=== PATIENT | female | born 1960 | race Caucasian/White ===

== ENCOUNTER 2018-11-01 14:36 | Inpatient (IN) | payer OTHER, MEDICAID ==
[~2018-11-01] VITALS: Ht 165.1 cm; Wt 68.0 kg
[2018-11-01] MEDS ORDERED: LOSA50TA3 PO (19:43)
[2018-11-01] MEDS ORDERED: LITH300T27 PO (19:43)
[2018-11-01] MEDS ORDERED: FER300L PO (19:43)
[2018-11-01] MEDS ORDERED: FLUP10TA PO (19:43)
[2018-11-01] MEDS ORDERED: LIP10 PO (19:43)
[2018-11-01] MEDS ORDERED: DOCU250C14 PO (19:43)
[2018-11-01] MEDS ORDERED: FAMO40TA71 PO (19:43)
[2018-11-01] MEDS ORDERED: AZITHROMYCIN 500 MG in NS 250 ML IV SCH (19:45)
[2018-11-01] MEDS ORDERED: cefTRIAXone 1 GM in D5W 50 ML IV SCH (19:45)
[2018-11-01] MEDS ORDERED: LevALBUTEROL HCL 1.25 MG/0.5 ML *CONC.* VIAL.NEB (XOPENEX CONC.) INH PRN (19:45)
--- NOTE | 2018-11-01 19:45 | NUR ---
OPENING NOTES RECEIVED PATIENT IN BED AAOX1. PATIENT IS CONFUSED UNABLE TO COMPREHEND PATIENT WITH RANDOM THOUGHTS. HEART AND LUNG SOUNDS WNL. BOWEL SOUNDS ACTIVE. NO COMPLAINTS OF PAIN OR RESPIRATORY DISTRESS. ORIENTED THE PATIENT TO THE ROOM AND USE OF THE CALL LIGHT BUT UNABLE TO ASSESS PATIENTS UNDERSTANDING. PATIENT IS ABLE TO AMBULATE TO THE BATHROOM WITH A STEADY GAIT. URINE VOID, NO BOWEL MOVEMENT.
[2018-11-01 20:00] VITALS: BP_SYST 150
--- NOTE | 2018-11-01 20:00 | NUR ---
PATIENT IS BEING AGGRESSIVE AND REFUSING IV INSERTION. WILL NOTIFY .
--- NOTE | 2018-11-01 20:02 | NUR ---
paged paged for Dr Iverson, dialed . s/w Caitlin.
[2018-11-01 20:25] VITALS: BP_SYST 150
--- NOTE | 2018-11-01 20:40 | NUR ---
paged second page for Dr Iverson, dialed . s/w Caitlin.
[2018-11-01 20:50] VITALS: BP_SYST 150
--- NOTE | 2018-11-01 21:22 | NUR ---
paged paged for Dr Iverson, dialed . s/w Caitlin.
[2018-11-01] MEDS ORDERED: AZITHROMYCIN 500 MG/VIAL (ZITHROMAX) IV ONE (21:24)
[2018-11-01] MEDS ORDERED: KCL 20 mEq in D5NS 1000 mL 1,000 ML IV ONE (21:26)
[2018-11-01] MEDS ORDERED: cefTRIAXone 1 GM IVPB PREMIX 50 ML IV ONE (21:26)
[2018-11-01] MEDS ORDERED: HALOPERIDOL LACTATE 5 MG/ML VIAL IM SCH (21:30)
--- NOTE | 2018-11-01 22:05 | NUR ---
PATIENT IN BED RESTING. SPEAKING NONSENSE. NO COMPLAINTS OF PAIN OR RESPIRATORY DISTRESS. ON ROOM AIR AND TOLERATING WELL.
[2018-11-01] MEDS: FAMOTIDINE 20 MG TABLET PO SCH (23:07)
[2018-11-01] MEDS: LITHIUM CARBONATE 300 MG TABLET.SA PO SCH (23:07)
[2018-11-01] MEDS: LOSARTAN POTASSIUM 50 MG TABLET (COZAAR) PO SCH (23:07)
[2018-11-01] MEDS: FERROUS SULFATE 300 MG/5 ML UDC PO SCH (23:07)
[2018-11-01] MEDS: ATORVASTATIN 10 MG TABLET PO SCH (23:07)
--- NOTE | 2018-11-01 23:30 | NUR ---
IV INSERTION: IV PLACED TO RIGHT FOREARM 22G. FLUSHED WITH 10ML SALINE WITH GOOD BLOOD RETURN. NO PAIN OR INFILTRATION AT THE SITE. IV WRAPPED WITH GAUZE.
[2018-11-02] VITALS: BP_SYST 114
--- NOTE | 2018-11-02 00:56 | NUR ---
Psych Consultation Paged Reason for consultation: Psychosis Was consult called: Yes Person who was notified: Denice Consulting Physician: Dr Zuluaga is on-call for Dr Gabriel Rubber Stamp Assembler Specialty: Psych Rubber Stamp Assembler Ordered By: Dr Iverson
--- NOTE | 2018-11-02 01:25 | NUR ---
SPOKE WITH DR CANADA. PATIENT IS NON COMPLIANT AND AGITATED WITH IV MEDICATIONS. PER DR CNAADA, HOLD IV FLUIDS AND ANTIBIOTICS. DR CANADA MADE AWARE OF ALLERGY TO PENICILLINS AND HALOPERIDOL.
--- NOTE | 2018-11-02 04:00 | NUR ---
PATIENT AMBULATED TO THE BATHROOM WITH STEADY GAIT. GARBLED SPEECH ABOUT HER MOTHER AND A CUSTOMER SALES REPRESENTATIVE. UNABLE TO COMPREHEND THE PATIENTS SENTENCES. NO PAIN, COUGH, SOB, OR FATIGUE WHEN AMBULATING.
[2018-11-02 06:21] LABS: BASOPHILS % (AUTO) 0.9 % (0.0-2.0); EOSINOPHILS # (AUTO) 0.2 K/uL (0.0-0.4); EOSINOPHILS % (AUTO) 4.2 % (0.0-4.0); HEMATOCRIT 44.4 % (36-48); HEMOGLOBIN 14.4 g/dL (12.0-16.0); LYMPHOCYTES # (AUTO) 1.6 K/uL (1.0-5.5); LYMPHOCYTES % (AUTO) 36.4 % (20.5-51.5); MEAN CORPUSCULAR HEMOGLOBIN 30 pg (27-31); MEAN CORPUSCULAR HGB CONC 32 % (32-36); MEAN CORPUSCULAR VOLUME 94 fL (79.0-98.0); MONOCYTES # (AUTO) 0.4 K/uL (0.0-1.0); NEUTROPHILS # (AUTO) 2.1 K/uL (1.8-7.7); NEUTROPHILS % (AUTO) 48.5 % (40.0-70.0); PLATELET COUNT (AUTO) 216 K/uL (130-430); RED BLOOD CELL COUNT(AUTO) 4.73 MIL/uL (4.2-6.2); RED CELL DISTRIBUTION WIDTH 15.5 % (9.0-15.0); WHITE BLOOD COUNT (AUTO) 4.4 K/uL (4.8-10.8)
[2018-11-02 06:42] LABS: CALCIUM 9.9 mg/dL (8.4-11.0); CREATININE 0.69 mg/dL (0.55-1.30); POTASSIUM 3.8 mmol/L (3.5-5.1)
--- NOTE | 2018-11-02 06:58 | NUR ---
CLOSING NOTES PATIENT IN BED RESTING. HAD AN OUTBURST, HITTING THE WALL WITH HER HANDS. SECURITY WAS CALLED BUT PATIENT CALMED DOWN. STILL REFUSING IV FLUIDS AND IV ANTIBIOTICS. SHE IS OKAY WITH PO PILLS. PATIENT STATES Addendum: 11/02/18 at 0703 by Garrett Jenkins RN PATIENT STATES "WHY ARE YOU TRYING TO TAKE MY BLOOD" SAFETY PRECAUTIONS IN PLACE. BED LOW AND LOCKED. WILL ENDORSE CARE TO ONCOMING NURSE.
--- NOTE | 2018-11-02 07:12 | NUR ---
received report at the bedside with nite nurse. patient alert awake x 1 confused. has iv access on the right forearm #22. saline lock, refused to have iv fluids on. breathing even and unlalbored. lungs bilaterally diminished at the bases. bed in low position. locked and alarmed. maintained safety measures. abdomen soft and non distended. instructed to call for assistance. call lights within reach. has ecchymosis on the rt forearm. no open wound noted.
[2018-11-02] MEDS: LevALBUTEROL HCL 1.25 MG/0.5 ML *CONC.* VIAL.NEB (XOPENEX CONC.) INH SCH ×3 (07:34→23:10)
[2018-11-02 07:41] VITALS: BP_SYST 132
[2018-11-02] MEDS: FERROUS SULFATE 300 MG/5 ML UDC PO SCH ×2 (07:54→21:16)
[2018-11-02] MEDS: DOCUSATE SODIUM 250 MG CAPSULE PO SCH (07:54)
[2018-11-02] MEDS: FAMOTIDINE 20 MG TABLET PO SCH ×2 (07:54→21:17)
[2018-11-02] MEDS: LITHIUM CARBONATE 300 MG TABLET.SA PO SCH ×2 (07:54→21:17)
[2018-11-02] MEDS: LOSARTAN POTASSIUM 50 MG TABLET (COZAAR) PO SCH ×2 (07:56→21:17)
--- NOTE | 2018-11-02 08:00 | NUR ---
had breakfast consumed 100% of food.
--- NOTE | 2018-11-02 08:40 | NUR ---
patient took the medication at this time. with water.
--- NOTE | 2018-11-02 09:00 | NUR ---
screams at times, but later quites down.
[2018-11-02] MEDS: KCL 20 mEq in D5NS 1000 mL 1,000 ML IV SCH ×2 (09:05→10:52)
--- NOTE | 2018-11-02 09:35 | NUR ---
trying to stand nd get water, but unsteady gait. assists on adls.
[2018-11-02] MEDS: AZITHROMYCIN 500 MG in NS 250 ML IV SCH ×2 (10:00→10:53)
--- NOTE | 2018-11-02 10:00 | NUR ---
patient ambulated to the bathroom. unsteady but ok. refused to assists her.
--- NOTE | 2018-11-02 10:47 | NUR ---
finally patient agreed to have iv fluids n iv antibiotic
--- NOTE | 2018-11-02 10:53 | NUR ---
Nutrition Update Robb Scale 18 noted. Pt admitted for ALOC. Diet: regular BMI: 25 kg/m2 RD to follow per nutrition care standards.
--- NOTE | 2018-11-02 10:56 | NUR ---
agreed to have iv fluids on and iv antibiotic.
[2018-11-02 11:24] VITALS: BP_SYST 90
--- NOTE | 2018-11-02 11:51 | NUR ---
doctor Augustin called covering for Dr Iverson. awaiting to call back.
--- NOTE | 2018-11-02 12:21 | NUR ---
eating 100% of food. stable no pain noted.
--- NOTE | 2018-11-02 12:22 | NUR ---
verbalized i want to go home and do something at home.
--- NOTE | 2018-11-02 13:57 | NUR ---
mom came to see the patient.
--- NOTE | 2018-11-02 14:26 | NUR ---
patient quite for now with the mom. earlier screaming. but stable.
[2018-11-02] MEDS ORDERED: NICOTINE 21 MG/24 HR PATCH.TD24 TD ONE (15:15)
[2018-11-02] MEDS ORDERED: BENZOCAINE/MENTHOL 1 EACH LOZENGE MM PRN (15:15)
--- NOTE | 2018-11-02 15:25 | NUR ---
MADE A F/U CALL TO THE PSYCH CONSULT DR BA, RE: PSYCHOSIS. SPOKE TO CRYSTAL.
--- NOTE | 2018-11-02 15:58 | NUR ---
MOM STILL HERE. STILL SCREAMING LOUD
--- NOTE | 2018-11-02 15:58 | NUR ---
NICOTINE PATCH APPLIED ON THE RIGHT ARM.
--- NOTE | 2018-11-02 16:00 | NUR ---
seen by dr wesley and made orders. mom able to talk to dr wesley at the station
[2018-11-02 16:32] VITALS: BP_SYST 162
[2018-11-02 16:34] VITALS: BP_SYST 115
--- NOTE | 2018-11-02 16:46 | NUR ---
patient quite and talking but stable.
--- NOTE | 2018-11-02 18:08 | NUR ---
quite and eating the food for dinner. no screaming noted.
--- NOTE | 2018-11-02 18:19 | NUR ---
closing notes: patient alert awake but confused. has lucid interval. between aao x 1 to 2 and most of the time. screams, if provoke and agrue. all needs are met. bed in low position, alarmed and locked. breathing even and unlabored. still has iv access on the rt forearm with iv fluids of D5NS + 20meq Kcl at 785cc/hr infusing on well. assists patient to the bathroom. steady but woobly at times. refused to gown on. wants to wear street clothes from home. able to eat good 100% of food consumed. maintained safety measures. endorsed to incoming nurse.
--- NOTE | 2018-11-02 19:10 | NUR ---
RECEIVED REPORT FROM LALO MAHER AT BEDSIDE.PATIENT IS AWAKE ORIENTED X2,FORGETFUL OF TIME.KNOWS IN THE HOSPITAL ONLY ,NO SPECIFIC NAME. PATIENT ON HER OWN CLOTHES,UP WALKING TOWARDS DOOR ASKING FOR COKE TO DRINK. THEN WENT TO BATHROOM TO VOID. BACK TO BED AND COVERED HERSELF WITH BLANKETS.
[2018-11-02 20:10] VITALS: BP_SYST 106
--- NOTE | 2018-11-02 21:00 | NUR ---
PATIENT IS ASKING FOR HER COKE TO DRINK. GIVEN FROM [place]. HAD BEEN SITTING UP ON BED
[2018-11-02] MEDS: ATORVASTATIN 10 MG TABLET PO SCH (21:17)
--- NOTE | 2018-11-02 21:45 | NUR ---
NAUSEA/VOMITING: FELT NAUSEATED AND VOMITTED APPROXIMATELY 150ML OF LIGHT COFFEE GROUND WITH UNDIGESTED FOODS.PATIENT JUST HAD COKE TO DRINK WITH MEDS AND COUGHING. WILL CALL .
--- NOTE | 2018-11-02 22:05 | NUR ---
NOTIFIED Mary BENTLEY ABOUT PATIENT VOMTING WITH ORDER OF ZOFRAN IV
[2018-11-02] MEDS: ONDANSETRON HCL 4 MG/2 ML VIAL IVP PRN (22:44)
--- NOTE | 2018-11-02 22:48 | NUR ---
WOKE UP SAT ON BED UPSET.VERBALIZING DOES NOT WANT TO BE TOUCH,PUSHED AROUND, BY CHANGEOVER OPERATOR.REASSURANCES PROVIDED. CALM DOWN AFTER.
--- NOTE | 2018-11-02 23:25 | NUR ---
ANXIOUS AND UNABLE TO SLEEP.ATIVAN 1MG IV GIVEN. VOIDED ON HER ATTENDS.DAVI CARE DONE.
[2018-11-02] MEDS: LORazepam 2 MG/ML VIAL IVP PRN (23:26)
[2018-11-03] VITALS: BP_SYST 110
--- NOTE | 2018-11-03 01:30 | NUR ---
AWAKEN, SITTING UP ON BED,TALKING DIFFERENT TOPICS ,THEN SMILE AT TIMES. LAY DOWN AFTER TALKING.
--- NOTE | 2018-11-03 03:00 | NUR ---
PATIENT SOUND ASLEEP THIS TIME. BREATHING PATTERN REGULAR.
--- NOTE | 2018-11-03 03:45 | NUR ---
PATIENT WOKE UP,SIT AT EDGE OF BED DANGLING FEET. TALKING BY HERSELF, CANT UNDERSTAND.
[2018-11-03] MEDS: KCL 20 mEq in D5NS 1000 mL 1,000 ML IV SCH ×3 (03:52→23:31)
--- NOTE | 2018-11-03 04:30 | NUR ---
LAY DOWN,COVERED HERSELF. NO DISTRESS.
--- NOTE | 2018-11-03 05:30 | NUR ---
WOKE UP. AMBULATED TO BATHROOM WITH STEADY GAIT ,CHANGED DEPENDS.
--- NOTE | 2018-11-03 06:23 | NUR ---
CLOSING: SLEPT AT SHORT INTERVALS. FEELS CALM ,AND COOPERATIVE AFTER ATIVAN. FALL AND ASPIRATION PRECAUTION OBSERVED. NO ACUTE CARDIOPULMONARY DISTRESS. EMOTIONAL PROVIDED WHILE AWAKE. CALL LIGHT WITHIN REACH. BED IN LOW POSITION AND BED ALARM ON. HAD SNACKS OF PUDDING ,CRACKERS, JUICE TO DRINK.ALL NEEDS WERE ATTENDED. WILL ENDORSE CARE TO AM RN.
[2018-11-03 06:48] LABS: BASOPHILS # (AUTO) 0.1 K/uL (0.0-0.2); BASOPHILS % (AUTO) 1.3 % (0.0-2.0); EOSINOPHILS # (AUTO) 0.3 K/uL (0.0-0.4); EOSINOPHILS % (AUTO) 5.1 % (0.0-4.0); HEMATOCRIT 39.3 % (36-48); HEMOGLOBIN 12.9 g/dL (12.0-16.0); LYMPHOCYTES # (AUTO) 1.6 K/uL (1.0-5.5); LYMPHOCYTES % (AUTO) 28.7 % (20.5-51.5); MEAN CORPUSCULAR HEMOGLOBIN 31 pg (27-31); MEAN CORPUSCULAR HGB CONC 33 % (32-36); MEAN CORPUSCULAR VOLUME 95 fL (79.0-98.0); MONOCYTES # (AUTO) 0.6 K/uL (0.0-1.0); MONOCYTES % (AUTO) 10.4 % (1.7-9.3); NEUTROPHILS % (AUTO) 54.5 % (40.0-70.0); PLATELET COUNT (AUTO) 201 K/uL (130-430); RED BLOOD CELL COUNT(AUTO) 4.16 MIL/uL (4.2-6.2); RED CELL DISTRIBUTION WIDTH 15.5 % (9.0-15.0); WHITE BLOOD COUNT (AUTO) 5.5 K/uL (4.8-10.8)
[2018-11-03 07:10] LABS: CALCIUM 10.2 mg/dL (8.4-11.0); CREATININE 0.68 mg/dL (0.55-1.30); FREE T4 (FREE THYROXINE) 0.7 ng/dl (0.8-1.5); POTASSIUM 4.1 mmol/L (3.5-5.1); THYROID STIMULATING HORMONE 1.44 uIu/mL (0.36-3.74)
--- NOTE | 2018-11-03 07:10 | NUR ---
received report at the bedside. patient alert awake x 1 still confused. vitals signs stable. afebrile. still had the iv access on the rt forearm #22. with D5NS + 20 meq of Kcl at 75cc/hr infusing on well. lungs bilaterally with slight crackles but diminished at the bases. abdomen soft and non distended. still refusing to have hospital gown. bed in low position, alarmed and locked. call lights within reach. still with one to one sitter. instructed to call for assistance. maintained fall and safety measures.
[2018-11-03] MEDS: LevALBUTEROL HCL 1.25 MG/0.5 ML *CONC.* VIAL.NEB (XOPENEX CONC.) INH SCH ×3 (07:43→23:00)
--- NOTE | 2018-11-03 07:45 | NUR ---
Dr Gabriel came and evaluate the patient.
[2018-11-03 07:49] VITALS: BP_SYST 101
--- NOTE | 2018-11-03 08:00 | NUR ---
HAD BREATHING TREATMENT. NON PRODUCTIVE COUGH NOTED.
[2018-11-03] MEDS: FERROUS SULFATE 300 MG/5 ML UDC PO SCH ×2 (08:02→20:49)
[2018-11-03] MEDS: NICOTINE 21 MG/24 HR PATCH.TD24 TD SCH (08:02)
[2018-11-03] MEDS: DOCUSATE SODIUM 250 MG CAPSULE PO SCH (08:03)
[2018-11-03] MEDS: FAMOTIDINE 20 MG TABLET PO SCH ×2 (08:03→20:49)
[2018-11-03] MEDS: LOSARTAN POTASSIUM 50 MG TABLET (COZAAR) PO SCH ×2 (08:04→20:48)
[2018-11-03] MEDS: LITHIUM CARBONATE 300 MG TABLET.SA PO SCH ×2 (08:04→20:49)
--- NOTE | 2018-11-03 08:34 | NUR ---
HAD EATEN BREAKFAST AT THIS TIME. STABLE AND RESTING.
--- NOTE | 2018-11-03 08:39 | NUR ---
due medication given at this time.
--- NOTE | 2018-11-03 09:15 | NUR ---
patient vomitted x 2. a projectile vomitting about 350cc brown color liquidy with some foods on it.
[2018-11-03] MEDS: ONDANSETRON HCL 4 MG/2 ML VIAL IVP PRN (09:23)
--- NOTE | 2018-11-03 10:00 | NUR ---
patient went to the bathroom. assisted to the bathroom. clean up herself changed her clothes.
--- NOTE | 2018-11-03 10:40 | NUR ---
dr wesley called for vomitting x 2. awaiting to call back.
--- NOTE | 2018-11-03 10:49 | NUR ---
Dr Augustin called back and ordered clear liquid diet and will see the patient later.
--- NOTE | 2018-11-03 11:30 | NUR ---
patients screams but stable and quite down.
[2018-11-03 11:57] VITALS: BP_SYST 130
--- NOTE | 2018-11-03 12:30 | NUR ---
had lunch clear liquid diet tolerating well. no vomitting nor nausea noted.
--- NOTE | 2018-11-03 14:00 | NUR ---
went to the bathroom and voided x 2
--- NOTE | 2018-11-03 14:45 | NUR ---
no vomitting noted. at this time. able to tolerate clear liquid diet.
--- NOTE | 2018-11-03 15:12 | NUR ---
voided x 2 at this time. able to tolerate clear liquid diet. no vomitting noted.
[2018-11-03 16:04] VITALS: BP_SYST 109
--- NOTE | 2018-11-03 17:15 | NUR ---
patient went to the bathroom. had voided x 2.
--- NOTE | 2018-11-03 18:10 | NUR ---
patient eating 100% of food consumed. trying to get out of bed.
--- NOTE | 2018-11-03 18:46 | NUR ---
closing notes: patient asleep right now. after eating dinner tolerating well. no nausea nor vomitting noted. all needs are met and attended. breathing even and unlabored. still on breathing treatment tolerating well. offered to have a bathed but refused. bed in low position, alarmed and locked. call lights within reach. continue to monitor patients status. endorsed to incoming nurse.
--- NOTE | 2018-11-03 19:34 | NUR ---
OPENING NOTE Received patient awake, walking in room, in no sign of distress, on room air. She is AOx1 and has direct observer in room with her. Presently IV is not infusing, she got out of bed and has been walking in room. She is wearing top and pant and not in a hospital gown. Will monitor.
[2018-11-03 20:00] VITALS: BP_SYST 130
[2018-11-03] MEDS: ATORVASTATIN 10 MG TABLET PO SCH (20:48)
--- NOTE | 2018-11-03 21:00 | NUR ---
Medications Due medications given. Patient stated name and . Patient requested apple juice and I let her know she can have it with medications and she agreed to take meds. She swallowed tablets and was cooperative. IV site was flushed and she was connected to IV fluids as ordered at 75 ml/hr. She whispers and talks to self incoherently. Presently resting in bed. Direct observer in room. Will monitor.
--- NOTE | 2018-11-03 22:41 | NUR ---
ROUNDS Patient is resting w/ eyes closed, no sign of distress noted. She is calm and quiet. IVF infusing well. Direct observer in room with patient. Safety precautions maintained and call light w/in reach. Will monitor.
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
[2018-11-04 00:10] VITALS: BP_SYST 94
--- NOTE | 2018-11-04 02:35 | NUR ---
Rounds Patient is resting in bed in comfortable position. Presently she is calm, no sign of distress noted. IVF infusing well. Lights are low, bed locked to lowest position and call light near. Direct observer in room with patient.
--- NOTE | 2018-11-04 04:43 | NUR ---
Rounds Patient is resting in bed, and she is sleeping / snoring. IVF infusing well. Non-labored breathing noted. No sign of distress noted. Safety precautions maintained. Direct observer in room with patient.
--- NOTE | 2018-11-04 06:03 | NUR ---
Sports Management Professor Sports Management Professor at bedside for blood draw. Patient was not cooperative and was screaming. technical communicator only able to collect CBC sample.
--- NOTE | 2018-11-04 06:26 | NUR ---
CLOSING NOTE Patient is resting in side posture and has covered face/head with light blanket. No sign of distress noted and she is presently calm. IVF infusing well. Needs met throughout shift. Safety precautions maintained and Direct Observer in room with patient. Will endorse care to oncoming nurse.
[2018-11-04 06:37] LABS: BASOPHILS # (AUTO) 0.1 K/uL (0.0-0.2); BASOPHILS % (AUTO) 1.5 % (0.0-2.0); EOSINOPHILS # (AUTO) 0.3 K/uL (0.0-0.4); EOSINOPHILS % (AUTO) 6.2 % (0.0-4.0); HEMOGLOBIN 13.7 g/dL (12.0-16.0); LYMPHOCYTES # (AUTO) 1.6 K/uL (1.0-5.5); LYMPHOCYTES % (AUTO) 34.4 % (20.5-51.5); MEAN CORPUSCULAR HEMOGLOBIN 31 pg (27-31); MEAN CORPUSCULAR HGB CONC 33 % (32-36); MEAN CORPUSCULAR VOLUME 95 fL (79.0-98.0); MONOCYTES # (AUTO) 0.5 K/uL (0.0-1.0); NEUTROPHILS # (AUTO) 2.3 K/uL (1.8-7.7); NEUTROPHILS % (AUTO) 47.9 % (40.0-70.0); PLATELET COUNT (AUTO) 164 K/uL (130-430); RED BLOOD CELL COUNT(AUTO) 4.43 MIL/uL (4.2-6.2); RED CELL DISTRIBUTION WIDTH 15.7 % (9.0-15.0); WHITE BLOOD COUNT (AUTO) 4.7 K/uL (4.8-10.8)
--- NOTE | 2018-11-04 07:20 | NUR ---
AM ROUNDS: WITH SITTER AT THE BEDSIDE. PATIENT COVERED HERSELF WITH BLANKET. IVF ON GOING AT RIGHT FOREARM ,CLEAN AND DRY. NOT IN ANY DISTRESS. BED LOCKED AT LOWEST POSITION. BED ALARM ON. CALL LIGHT WITH IN REACH.
--- NOTE | 2018-11-04 07:40 | NUR ---
BLOOD TEST REFUSED: PATIENT REFUSED BLOOD DRAWN FOR BMP ,FREE T4,TSH AND ESTRADIOL.
[2018-11-04] MEDS: LevALBUTEROL HCL 1.25 MG/0.5 ML *CONC.* VIAL.NEB (XOPENEX CONC.) INH SCH ×2 (08:00→15:00)
[2018-11-04 08:10] VITALS: BP_SYST 140
--- NOTE | 2018-11-04 08:28 | NUR ---
Sedimentationist Note FIXING CARPENTER noted Discharge Plan Assessment note that patient's mother has conservatorship of patient and wants patient to return to [facility] (a psychiatric facility) upon discharge.
--- NOTE | 2018-11-04 08:35 | NUR ---
IV LEAKING: IV WAS OUT.NO BLEEDING NOTED.IV RE SITED AT RIGHT FOREARM USING G#22,CONTINUE IVF ORDERED.
[2018-11-04] MEDS: LORazepam 2 MG/ML VIAL IVP PRN (08:53)
--- NOTE | 2018-11-04 08:53 | NUR ---
IV ATIVAN: PATIENT AGITATED,DUE IV ATIVAN GIVEN ORDERED. NO PROBLEM.
[2018-11-04] MEDS: FERROUS SULFATE 300 MG/5 ML UDC PO SCH ×2 (09:12→20:12)
[2018-11-04] MEDS: LOSARTAN POTASSIUM 50 MG TABLET (COZAAR) PO SCH ×2 (09:13→20:12)
[2018-11-04] MEDS: DOCUSATE SODIUM 250 MG CAPSULE PO SCH (09:14)
[2018-11-04] MEDS: LITHIUM CARBONATE 300 MG TABLET.SA PO SCH ×2 (09:14→20:13)
[2018-11-04] MEDS: ONDANSETRON HCL 4 MG/2 ML VIAL IVP PRN (09:37)
--- NOTE | 2018-11-04 09:37 | NUR ---
IV ZOFRAN: WITH LARGE AMOUNT OF VOMITING X2,ORANGE JELLO FROM BREAKFAST . DUE IV ZOFRAN GIVEN ORDERED.
[2018-11-04] MEDS: FAMOTIDINE 20 MG TABLET PO SCH ×2 (09:46→20:13)
[2018-11-04] MEDS: NICOTINE 21 MG/24 HR PATCH.TD24 TD SCH (09:47)
--- NOTE | 2018-11-04 10:30 | NUR ---
RN ROUNDS: PATIENT CALM THIS TIME. SITTER AT THE BEDSIDE.
[2018-11-04 10:59] LABS: ALBUMIN 3.3 g/dL (3.4-4.8); CALCIUM 9.8 mg/dL (8.4-11.0); CREATININE 0.69 mg/dL (0.55-1.30); FREE T4 (FREE THYROXINE) 0.7 ng/dL (0.6-1.6); POTASSIUM 4.4 mmol/L (3.5-5.1); THYROID STIMULATING HORMONE 0.8 uIu/mL (0.34-4.82); TOTAL BILIRUBIN 0.5 mg/dL (0.0-1.0)
--- NOTE | 2018-11-04 11:11 | NUR ---
DC PLANNING: CM SPOKE WITH DR. TIAN REGARDING DC PLAN FOR PATIENT. PER DR. TIAN, HE DOES NOT THINK PATIENT NEEDS [facility] AND PATIENT CAN BE DC BACK TO [facility] IF MEDICALLY STABLE. NEED TO CHECK WITH ATTENDING MD DR. CANADA.
--- NOTE | 2018-11-04 13:03 | NUR ---
Rn Rounds: Lying on the bed. With sitter at the bedside. No untoward manifestations noted.
[2018-11-04] MEDS: KCL 20 mEq in D5NS 1000 mL 1,000 ML IV SCH (14:50)
--- NOTE | 2018-11-04 15:10 | NUR ---
RN ROUNDS: PATIENT DRINKING HER ARYA ANAND SODA. NO NAUSEA/VOMITING THIS TIME. WITH SITTER AT THE BEDSIDE.
[2018-11-04 15:23] VITALS: BP_SYST 142
[2018-11-04 15:30] VITALS: BP_SYST 142
--- NOTE | 2018-11-04 16:51 | NUR ---
REPORT: REPORT GIVEN TO [facility] ADM FROM [facility] ([facility]).
[2018-11-04 16:57] VITALS: BP_SYST 142
--- NOTE | 2018-11-04 17:27 | NUR ---
DC PLANNING: CHON SPOKE WITH WILLIAM ( INSPECTOR AIDE @ [facility] L[facility]) @ . PATIENT IS ACCEPTED AND ROOM NUMBER IS 18B. CM ATTEMPTED TO ARRANGE TRANSPORTATION WITH [facility] ([phone]). HOWEVER, WAS NOT AVAILABLE. CM ARRANGED TRANSPORTATION WITH [facility] @ . SPOKE WITH JOSIE (DISPATCH). [employer] TIME IS 8PM. CM ATTEMPTED TO CONTACT PATIENT'S MOTHER ( ALEC) @ . HOWEVER, WAS UNAVAILABLE CM LEFT A MESSAGE.
--- NOTE | 2018-11-04 17:38 | NUR ---
LINDA CALLED: INFORMED ALEC LOUIE FOR THE TRANSFER OF PATIENT BACK TO [facility]) AND AGREED TO THE TRANSFER.
--- NOTE | 2018-11-04 18:22 | NUR ---
CLOSING NOTES: PATIENT HAVING DINNER. SITTER DC. CALL LIGHT WITH IN REACH. BED LOCKED AT LOWEST POSITION. TRANSFER TO [facility] ([facility]) ORDERED. STABLE.
[2018-11-04] MEDS: ATORVASTATIN 10 MG TABLET PO SCH (20:13)
[2018-11-04 20:30] VITALS: BP_SYST 146
--- NOTE | 2018-11-04 21:00 | NUR ---
pt.was transferred/return to [facility];mother ginny jose apprised of the transfer order and consented to the return transfer. v/s assessed p/t transfer;b/p presented elevated values;i had administer the 2100p medications;cozaar;50mg b/p administered;b/p re-assessed p/t transfer;b/p values had presented decreased values.i had conveyed the pts' data/info:alexx.pt.presents polst form;full code: conveyed to ambulance staff.pt's pertenences accounted for.i have d/c the [facility] id band;all bands.i have applied the blank;white id band.pt transferred in her personal clothing;including wool cap.pt.transferred in stable status.general status stable.respiratory status stable:02-sat%=99%@room air.
== END 2018-11-04 20:55 | DRG 177 ==
LOC: SMU 17:00
PROVIDERS: ADMIT Family Medicine; ATTEND Family Medicine
DX: J15.6 Pneumonia due to other Gram-negative bacteria (principal); G93.41 Metabolic encephalopathy; J44.0 Chronic obstructive pulmonary disease with (acute) lower respiratory infection; J44.1 Chronic obstructive pulmonary disease with (acute) exacerbation; F23 Brief psychotic disorder; Z59.0 Homelessness; F17.200 Nicotine dependence, unspecified, uncomplicated; F31.9 Bipolar disorder, unspecified; I10 Essential (primary) hypertension
CPT/HCPCS: 36415; 71045; 80048; 80053; 80178-TC; 82670; 84439; 84443-TC; 85025; 87081; 94640; J0456; J0696; J2060; J2405; J7050; J7612

== ENCOUNTER 2019-02-17 18:58 | Inpatient (IN) | payer OTHER, MEDICAID ==
[~2019-02-17] VITALS: Ht 165.1 cm; Wt 68.0 kg
[~2019-02-17 18:58] MED LIST: DOCU250C14 PO; FAMO40TA71 PO; FER300L PO; FLUP10TA PO; LIP10 PO; LITH300T27 PO; LOSA50TA3 PO
[2019-02-17 19:06] VITALS: BP_SYST 149
--- NOTE | 2019-02-17 19:09 | NUR ---
Patient to ER [place] 1 to [facility] for evaluation. Side rails up. Report given to Roxanne MAY.
--- NOTE | 2019-02-17 19:10 | NUR ---
Pt brought by ambulance, A&Ox3, pt presents to ER for medical clearance prior transfer to [facility] facility, pt ambulatory , respirations even and unlabored, cap refill <3, skin pink and warm.
--- NOTE | 2019-02-17 19:30 | NUR ---
Urine specimen collected and sent to the lab.
[2019-02-17 20:05] LABS: BILIRUBIN,URINE NEGATIVE (NEGATIVE); BLOOD, URINE NEGATIVE (NEGATIVE); CLARITY/URINE CLEAR (CLEAR); COLOR,URINE YELLOW (YELLOW); GLUCOSE,URINE NEGATIVE (NEGATIVE); KETONES,URINE NEGATIVE (NEGATIVE); LEUKOCYTE ESTERASE ,URINE TRACE (NEGATIVE); NITRITE, URINE POSITIVE (NEGATIVE); PH,URINE 5.5 (5.0-8.0); PROTEIN URINE NEGATIVE (NEGATIVE); UROBILINOGEN,URINE 0.2 (0.2-1.0)
--- NOTE | 2019-02-17 20:10 | NUR ---
EKG performed at by LALO YARBROUGH. Physician given copy of EKG for review.
[2019-02-17 20:16] LABS: BASOPHILS # (AUTO) 0.1 K/uL (0.0-0.2); EOSINOPHILS # (AUTO) 0.1 K/uL (0.0-0.4); HEMATOCRIT 38.6 % (36-48); MONOCYTES # (AUTO) 0.8 K/uL (0.0-1.0); NEUTROPHILS # (AUTO) 4.5 K/uL (1.8-7.7)
[2019-02-17 20:20] LABS: BASOPHILS % (AUTO) 1.1 % (0.0-2.0); EOSINOPHILS % (AUTO) 1.3 % (0.0-4.0); HEMOGLOBIN 13.1 g/dL (12.0-16.0); LYMPHOCYTES # (AUTO) 1.8 K/uL (1.0-5.5); LYMPHOCYTES % (AUTO) 24.6 % (20.5-51.5); MEAN CORPUSCULAR HEMOGLOBIN 33 pg (27-31); MEAN CORPUSCULAR HGB CONC 34 % (32-36); MEAN CORPUSCULAR VOLUME 98 fL (79.0-98.0); MONOCYTES % (AUTO) 10.6 % (1.7-9.3); NEUTROPHILS % (AUTO) 62.4 % (40.0-70.0); PLATELET COUNT (AUTO) 209 K/uL (130-430); RED BLOOD CELL COUNT(AUTO) 3.96 MIL/uL (4.2-6.2); RED CELL DISTRIBUTION WIDTH 13.1 % (9.0-15.0); WHITE BLOOD COUNT (AUTO) 7.3 K/uL (4.8-10.8)
[2019-02-17 20:27] LABS: CALCIUM 9.9 mg/dL (8.4-11.0); CREATININE 0.73 mg/dL (0.55-1.30); POTASSIUM 3.4 mmol/L (3.5-5.1)
[2019-02-17 20:33] LABS: ALBUMIN 3.5 g/dL (3.4-4.8); TOTAL BILIRUBIN 0.4 mg/dL (0.0-1.0)
[2019-02-17 20:37] LABS: BARBITURATE, URINE NEGATIVE (NEG <=200); BENZODIAZEPINE, URINE NEGATIVE (NEG <=150); CANNABINOID, URINE NEGATIVE (NEG <=50); COCAINE, URINE NEGATIVE (NEG <=150); METHAMPHETAMINES SCREEN,URINE NEGATIVE (NEG <=500); OPIATE, URINE NEGATIVE (NEG <=100); PHENCYCLIDINE SCREEN,URINE NEGATIVE (NEG <=25); UR TRICYCLIC ANTIDEPRESSANTS NEGATIVE (NEG <=300); URINE AMPHETAMINE NEGATIVE (NEG <=500); URINE METHADONE NEGATIVE (NEG <=200); URINE OXYCODONE SCREEN NEGATIVE (NEG <=100); URINE PROPOXYPHENE SCREEN NEGATIVE (NEG <=300)
[2019-02-17 20:45] LABS: INR 1.1 (0.8-1.2); PROTHROMBIN TIME 10.7 SECS (9.5-12.5)
[2019-02-17 21:08] LABS: BACTERIA,URINE MODERATE /HPF (None Seen); MUCUS,URINE None Seen /LPF (None Seen); RBC,URINE NONE SEEN /HPF (0-3)
[2019-02-17] MEDS ORDERED: ASPIRIN 81 MG TABLET(ECOTRIN) PO ONE (21:15)
--- NOTE | 2019-02-17 21:45 | NUR ---
Medication reconciliation completed with information provided by SCOTTY BALL. Any prior medication reconciliation on file was reviewed and corrected.
[2019-02-17] MEDS ORDERED: cefTRIAXone 1 GM IVPB PREMIX 50 ML IV ONE (22:15)
--- NOTE | 2019-02-17 23:11 | NUR ---
Pt resting at this time, VSS, respirations even and unlabored
--- NOTE | 2019-02-17 23:13 | NUR ---
Report given to Ed MAY
--- NOTE | 2019-02-17 23:13 | NUR ---
Viki dugan notified patient is being admitted at [facility]
--- NOTE | 2019-02-18 01:23 | NUR ---
Patient will be admitted to care of Dr. Iverson. Admitted to Telemetry unit. Will go to room 113 A. Belongings list completed. Summary report printed. Report will be given at bedside.
[2019-02-18 01:25] VITALS: BP_SYST 136
--- NOTE | 2019-02-18 01:25 | NUR ---
ADMITTED FROM ER DEPT A 58 YO W F W/ DIAGNOSIS OF UTI AND ELEVATED CARDIAC ENZYMES. AWAKE, ALERT WITH BOUTS OF CONFUSION AND FORGETFULNESS. GENERALLY PLEASANT AND COOPERATIVE. DENIES PAIN, SOB AND DISTRESS. VSS. ON ROOM AIR. BREATH SOUNDS ESSENTIALLY CLEAR. POX 95%. BOWEL SOUNDS (+). PULSES PALPABLE. SKIN W/D. COLOR SATISFACTORY. HOB UP TO COMFORT. SIDE RAILS UP. CALL LIGHTS WITHIN REACH. TELEMETRY SHOWING SINUS RHYTHM W/1ST DEGREE AVB AND INVERTED T WAVE.
--- NOTE | 2019-02-18 01:25 | NUR ---
Transfer to [facility]. IV present no sign or symptom of infiltration.
--- NOTE | 2019-02-18 02:00 | NUR ---
STOOD UP OOB, INSTRUCTED TO CALL NURSE FIRST, SEEMS TO UNDERSTAND. AMBULATED TO BATHROOM TO URINATE, SELF DAVI-CARE DONE. AMBULATED BACK TO BED WITHOUT INCIDENCE.
--- NOTE | 2019-02-18 04:00 | NUR ---
SOUNDLY ASLEEP. TURNS SELF WELL.
--- NOTE | 2019-02-18 06:00 | NUR ---
SLEPT FOR LONG LONG PERIODS OF TIME. OCCASIONALLY SLEEPS IN PRONE POSITION. REMAINS IN GUARDED CONDITION.
--- NOTE | 2019-02-18 07:45 | NUR ---
OPENING NOTE patient is resting in bed, patient able to say name and , does not know which hospital we are at, assessment completed, educated director of consulting services light system and plan of care, patient verbalized understanding, no signs of distress, no other needs addressed at this time, fall/safety precautions in place.
[2019-02-18 08:06] VITALS: BP_SYST 151
[2019-02-18] MEDS ORDERED: ENOXAPARIN SODIUM 40 MG/0.4 ML SYRINGE SUBCUT SCH (09:00)
[2019-02-18] MEDS ORDERED: ASPIRIN 81 MG TAB.CHEW PO SCH (09:00)
--- NOTE | 2019-02-18 09:30 | NUR ---
rounds patient is resting in bed, no signs of distress, patient wanted to wear her own clothes and not the hospital gown, no other needs at this time, fall/safety precautions in place.
--- NOTE | 2019-02-18 11:50 | NUR ---
spoke to patient's mother informed her that Dr Iverson [facility] after [facility] sees her, she is okay with [facility], updated her on patient, patient is lying in bed with her blankets on her, no signs of distress, fall/safety precautions in place.
--- NOTE | 2019-02-18 12:15 | NUR ---
patient pulled out IV refused another insertion at this time.
[2019-02-18 12:28] VITALS: BP_SYST 101
--- NOTE | 2019-02-18 13:20 | NUR ---
patient is resting in bed eating lunch, no signs of distress, no needs addressed at this time, fall/safety precautions in place.
[2019-02-18] MEDS ORDERED: DOCUSATE SODIUM 250 MG CAPSULE PO ONE (13:45)
--- NOTE | 2019-02-18 14:31 | NUR ---
South Asian History Professor Note/Psych placement Patient here for medical clearance prior to going to [facility]. Patient is agreeable to go as long as her mother is aware. Patient has a long history of psychosis or bipolar disorder and is a skilled nursing resident of [facility]. Patient's mother is her mental health conservator, Joanna Ford, "Lucinda", cell [phone]. Joanna wants patient to go to [facility] via ambulance and will sign the voluntary paperwork there. The conservator paperwork is in the chart. Will follow up for placement. Addendum: 02/18/19 at 1434 by Stefanie Carter LCSW Phoned Asiya at [facility] this am, . They had given away the bed and no beds are available. They are trying to make a bed available. Will fax information. Addendum: 02/18/19 at 1651 by Stefanie Carter LCSW Patient accepted to room 58B at [facility] [phone]. Awaiting psych consult.
[2019-02-18 14:37] VITALS: BP_SYST 108
--- NOTE | 2019-02-18 15:24 | NUR ---
discharge planning Called Dr Singh and received order for psyche consult with Dr Gabriel
--- NOTE | 2019-02-18 15:32 | NUR ---
patient resting in bed patient wanted to walk in room, when patient got up she felt dizzy, advised her to lay back down, patient laid back in bed, no other needs at this time, fall/safety precautions in place.
--- NOTE | 2019-02-18 16:09 | NUR ---
CONSULT PSYCH INCREASED AGITATION, DISRUPTIVE BEHAVIOR DR TIAN [phone] S/W LAURA OFFICE FACESHEET FAXED TO [phone]
[2019-02-18 16:45] VITALS: BP_SYST 108
--- NOTE | 2019-02-18 18:50 | NUR ---
CLOSING NOTE-DR DREAD Iverson is here and said patient has a bed at [address], no signs of distress, no other needs addressed at this time, fall/safety precautions in place, arranging transfer for patient, mother Joanna was called to be notified, will endorse report to noc shift nurse to follow up with transfer.
--- NOTE | 2019-02-18 18:55 | NUR ---
Called [facility], ETA 2030,
[2019-02-18] MEDS ORDERED: HALOPERIDOL LACTATE 5 MG/ML VIAL IM ONE (19:30)
--- NOTE | 2019-02-18 20:02 | NUR ---
[facility] transfer 190 Late entry due to hand over Dr Coburn here. Informed desk reporter that patient has a bed in [facility] which is confirmed by the sangita umana at [facility], RONNIE Bradley Director of Case management to clarify. Psych consult was called this afternoon but Dr Gabriel has not seen the patient yet. Per Mirna, because patient is admitted, Psych needs to see patient first. This was relayed to Dr ocburn who then stated that patient was seen by Dr Wilkinson at [facility] and will continue to follow up on the patient at [facility]. Dr Coburn will document above in his progress notes. Reported also asked Dr Coburn about antibiotics for patient's UTI. Per MD will prescribe the medications when the patient is transferred to [facility]
[2019-02-18] MEDS ORDERED: FERROUS SULFATE 325 MG TABLET.DR PO SCH (21:00)
[2019-02-18] MEDS ORDERED: LOSARTAN POTASSIUM 50 MG TABLET (COZAAR) PO SCH (21:00)
[2019-02-18] MEDS ORDERED: ATORVASTATIN 10 MG TABLET PO SCH (21:00)
[2019-02-18] MEDS ORDERED: FAMOTIDINE 20 MG TABLET PO SCH (21:00)
[2019-02-18] MEDS ORDERED: LITHIUM CARBONATE 300 MG TABLET.SA PO SCH (21:00)
--- NOTE | 2019-02-18 21:02 | NUR ---
Paged Dr. Iverson
[2019-02-18] MEDS ORDERED: DIPHENHYDRAMINE INJ 50 MG/ML VIAL ONE (21:22)
[2019-02-18] MEDS ORDERED: LORazepam 2 MG/ML VIAL ONE (21:24)
[2019-02-18] MEDS ORDERED: DIPHENHYDRAMINE INJ 50 MG/ML VIAL IM SCH (21:25)
[2019-02-18] MEDS ORDERED: LORazepam 2 MG/ML VIAL IM SCH (21:25)
--- NOTE | 2019-02-18 21:54 | NUR ---
DISCHARGE: 2029: Pt was agitated, uncooperative, screaming when ambulance was here, stated that she does not want to go to that place in [facility]. that she wanted to go back to [place] where she was before. Tried to convinced pt by several nurses including Soldering Machine Tender, but was not willing to go at all. Called Dr. Iverson and made aware, doctor gave order for Ativan 1mg IM and Benadryl 1mg IM and still send pt to [place] once she's calm and insisted to transfer pt tonight and not tomorrow. 2114: Ativan and Benadryl IM given on right arm deltoid area. Pt agreed to take all her po meds after being paranoid and reluctant at first at 2126. 2144: Pt is calm; was verbalizing that she wanted to go back to [place] because she trusted people there. Agreed to finally go to [facility] after so much convincing. Reassurance provided to pt and was cooperative to go with the [facility] ambulance transport. No episodes of agitation or aggressive behavior at the time of transport. Vital signs stable, No complains of pain or discomfort. Pt discharge in stable condition with no acute cardio-pulmonary distress. Pt went wearing her own clothes and no other belongings. 2149: Spoke to Peri at [facility] and gave her an update regarding transfer. Per Dr. Iverson during his rounds at 1930, stated that pt can be transferred to [facility] and that he wrote on his discharge summary that pt was seen by psychiatrist, Dr. Wilkinson at [place] prior to coming here for medical clearance and that Dr. Wilkinson had already accepted the pt there at [facility].
[2019-02-18] MEDS ORDERED: cefTRIAXone 1 GM in D5W 50 ML IV SCH (23:00)
[2019-02-19 07:35] LABS: CHOLESTEROL 133 mg/dL (<200); HDL CHOLESTEROL 58 mg/dL (>55); LDL CHOLESTEROL 57 mg/dL (<100); TRIGLYCERIDES 53 mg/dL (30-150)
[2019-02-19] MEDS ORDERED: DOCUSATE SODIUM 250 MG CAPSULE PO SCH (09:00)
== END 2019-02-18 21:50 | DRG 71 ==
LOC: SED 18:58 → STU 22:41 → SMU 02-18 17:35
PROVIDERS: ADMIT Family Medicine; ATTEND Family Medicine
DX: G93.41 Metabolic encephalopathy (principal); N39.0 Urinary tract infection, site not specified; M19.90 Unspecified osteoarthritis, unspecified site; K21.9 Gastro-esophageal reflux disease without esophagitis; F31.9 Bipolar disorder, unspecified; I10 Essential (primary) hypertension; Z88.0 Allergy status to penicillin; Z88.8 Allergy status to other drugs, medicaments and biological substances; Z79.899 Other long term (current) drug therapy; R40.2243 Coma scale, best verbal response, confused conversation, at hospital admission
CPT/HCPCS: 36415; 71045; 80053; 80061; 80307; 81000-TC; 82550-TC; 83036; 83605; 84443-TC; 84484; 85025; 85610-TC; 85730-TC; 87040-TC; 87081; 87086; 87186-TC; 93005; 96365; 99285; G0378; J0696; J1200; J1650; J2060; J7060; J7120

== ENCOUNTER 2019-02-19 14:07 | Outpatient (CLI) | payer MEDICAID, OTHER | END 2019-02-19 20:13 | disposition home or self-care (01) | LOC: SLB 14:07 | PROVIDERS: ATTEND Psychiatry & Neurology Psychiatry | DX: Z00.00 Encounter for general adult medical examination without abnormal findings (principal) | CPT/HCPCS: 36415; 80178-TC; 87081 ==

== ENCOUNTER 2019-02-26 12:18 | Outpatient (CLI) | payer OTHER | END 2019-02-26 18:41 | disposition home or self-care (01) | LOC: SLB 12:18 | PROVIDERS: ATTEND Psychiatry & Neurology Psychiatry | DX: Z00.00 Encounter for general adult medical examination without abnormal findings (principal) | CPT/HCPCS: 36415; 80178-TC ==

== ENCOUNTER 2019-03-04 13:01 | Outpatient (CLI) | payer OTHER | END 2019-03-04 21:07 | disposition home or self-care (01) | LOC: SLB 13:01 | PROVIDERS: ATTEND Psychiatry & Neurology Psychiatry | DX: Z00.00 Encounter for general adult medical examination without abnormal findings (principal) | CPT/HCPCS: 36415; 80178-TC ==

== ENCOUNTER 2019-03-09 07:35 | Outpatient (CLI) | payer OTHER | END 2019-03-09 21:01 | disposition home or self-care (01) | LOC: SLB 07:35 | PROVIDERS: ATTEND Psychiatry & Neurology Psychiatry | DX: Z00.00 Encounter for general adult medical examination without abnormal findings (principal) | CPT/HCPCS: 36415; 80178-TC ==

== ENCOUNTER 2019-03-10 13:47 | Outpatient (CLI) | payer OTHER ==
[2019-03-10 15:59] LABS: BILIRUBIN,URINE 1+ (NEGATIVE); BLOOD, URINE NEGATIVE (NEGATIVE); CLARITY/URINE CLOUDY (CLEAR); COLOR,URINE YELLOW (YELLOW); GLUCOSE,URINE NEGATIVE (NEGATIVE); KETONES,URINE NEGATIVE (NEGATIVE); LEUKOCYTE ESTERASE ,URINE TRACE (NEGATIVE); NITRITE, URINE NEGATIVE (NEGATIVE); PROTEIN URINE NEGATIVE (NEGATIVE); UROBILINOGEN,URINE 0.2 (0.2-1.0)
[2019-03-10 17:11] LABS: BACTERIA,URINE MANY /HPF (None Seen); MUCUS,URINE None Seen /LPF (None Seen); OTHER CASTS, URINE WBC CASTS 1+ /LPF (None Seen); RBC,URINE 0-3 /HPF (0-3)
== END 2019-03-10 17:48 | disposition home or self-care (01) ==
LOC: SLB 13:47
PROVIDERS: ATTEND Psychiatry & Neurology Psychiatry
DX: Z00.00 Encounter for general adult medical examination without abnormal findings (principal)
CPT/HCPCS: 81000-TC; 87086

== ENCOUNTER 2019-03-12 16:07 | Outpatient (CLI) | payer OTHER ==
[2019-03-12 16:28] LABS: BILIRUBIN,URINE 1+ (NEGATIVE); BLOOD, URINE NEGATIVE (NEGATIVE); CLARITY/URINE OTHER (CLEAR); COLOR,URINE YELLOW (YELLOW); GLUCOSE,URINE NEGATIVE (NEGATIVE); KETONES,URINE NEGATIVE (NEGATIVE); LEUKOCYTE ESTERASE ,URINE NEGATIVE (NEGATIVE); NITRITE, URINE POSITIVE (NEGATIVE); PH,URINE 6.5 (5.0-8.0); PROTEIN URINE NEGATIVE (NEGATIVE); UROBILINOGEN,URINE 0.2 (0.2-1.0)
[2019-03-12 16:43] LABS: BACTERIA,URINE MANY /HPF (None Seen); MUCUS,URINE 1+ /LPF (None Seen); RBC,URINE NONE SEEN /HPF (0-3); WBC,URINE 0-3 /HPF (0-3)
== END 2019-03-12 18:00 | disposition home or self-care (01) ==
LOC: SLB 16:07
PROVIDERS: ATTEND Psychiatry & Neurology Psychiatry
DX: Z00.00 Encounter for general adult medical examination without abnormal findings (principal)
CPT/HCPCS: 81000-TC; 87086

== ENCOUNTER 2019-03-13 09:11 | Outpatient (CLI) | payer OTHER | END 2019-03-13 21:11 | disposition home or self-care (01) | LOC: SLB 09:11 | PROVIDERS: ATTEND Psychiatry & Neurology Psychiatry | DX: Z00.00 Encounter for general adult medical examination without abnormal findings (principal) | CPT/HCPCS: 36415; 80178-TC ==

== ENCOUNTER 2019-03-26 10:57 | Inpatient (IN) | payer OTHER, MEDICAID ==
[~2019-03-26] VITALS: Ht 167.6 cm; Wt 63.5 kg
[2019-03-26 10:57] VITALS: BP_SYST 124
[~2019-03-26 10:57] MED LIST changes: +BUPIVACAINE /PF 0.25% 30 ML VIAL INJ ONE; +BUPIVACAINE /PF 0.75% 10 ML VIAL INJ ONE; +CEFAZOLIN 2 GM IVPB PREMIX 50 ML IV ONE; +LIDOCAINE 1% 10 MG/ML, 20 ML MDV INJ ONE; +LR 1,000 ML IV.SOLN IV ONE; +MIDAZOLAM HCL 5 MG/5 ML VIAL IVP ONE; +MORPHINE SULFATE 10MG/10ML PF AMP EP ONE
[2019-03-26 12:03] LABS: BASOPHILS % (AUTO) 0.4 % (0.0-2.0); EOSINOPHILS % (AUTO) 0.1 % (0.0-4.0); HEMATOCRIT 42.1 % (36-48); HEMOGLOBIN 14.6 g/dL (12.0-16.0); LYMPHOCYTES # (AUTO) 0.8 K/uL (1.0-5.5); LYMPHOCYTES % (AUTO) 9.3 % (20.5-51.5); MEAN CORPUSCULAR HEMOGLOBIN 33 pg (27-31); MEAN CORPUSCULAR HGB CONC 35 % (32-36); MEAN CORPUSCULAR VOLUME 97 fL (79.0-98.0); MONOCYTES # (AUTO) 0.9 K/uL (0.0-1.0); MONOCYTES % (AUTO) 9.5 % (1.7-9.3); NEUTROPHILS # (AUTO) 7.3 K/uL (1.8-7.7); NEUTROPHILS % (AUTO) 80.7 % (40.0-70.0); PLATELET COUNT (AUTO) 184 K/uL (130-430); RED BLOOD CELL COUNT(AUTO) 4.36 MIL/uL (4.2-6.2); RED CELL DISTRIBUTION WIDTH 13.5 % (9.0-15.0)
[2019-03-26 12:08] LABS: BILIRUBIN,URINE NEGATIVE (NEGATIVE); BLOOD, URINE NEGATIVE (NEGATIVE); CLARITY/URINE SL CLOUDY (CLEAR); COLOR,URINE YELLOW (YELLOW); GLUCOSE,URINE NEGATIVE (NEGATIVE); KETONES,URINE NEGATIVE (NEGATIVE); LEUKOCYTE ESTERASE ,URINE TRACE (NEGATIVE); NITRITE, URINE NEGATIVE (NEGATIVE); PH,URINE 6.5 (5.0-8.0); PROTEIN URINE NEGATIVE (NEGATIVE); UROBILINOGEN,URINE 0.2 (0.2-1.0)
[2019-03-26 12:11] LABS: BACTERIA,URINE MANY /HPF (None Seen); RBC,URINE 0-3 /HPF (0-3)
[2019-03-26] MEDS ORDERED: BUDE0.5A4 NEB (12:16)
[2019-03-26] MEDS ORDERED: FLUP10TA PO ×2 (12:16)
[2019-03-26] MEDS ORDERED: METO50TA7 PO (12:16)
[2019-03-26] MEDS ORDERED: CLON1TAB12 PO (12:16)
[2019-03-26] MEDS ORDERED: LOSA50TA3 PO (12:16)
[2019-03-26] MEDS ORDERED: LIP10 PO (12:16)
[2019-03-26] MEDS ORDERED: TRAZ-250 PO (12:16)
[2019-03-26] MEDS ORDERED: ACET325T53 PO (12:16)
[2019-03-26] MEDS ORDERED: FAMO40TA71 PO (12:16)
[2019-03-26] MEDS ORDERED: CLOP75TA32 PO (12:16)
[2019-03-26] MEDS ORDERED: ALBU2.5V7 INH (12:16)
[2019-03-26] MEDS ORDERED: CRAN450C PO (12:16)
[2019-03-26] MEDS ORDERED: PEDI1TAB28 PO (12:16)
[2019-03-26] MEDS ORDERED: MONT10TA25 PO (12:16)
[2019-03-26 12:20] LABS: CALCIUM 10.3 mg/dL (8.4-11.0); CREATININE 0.72 mg/dL (0.55-1.30); POTASSIUM 3.5 mmol/L (3.5-5.1)
[2019-03-26 12:26] LABS: ALBUMIN 3.4 g/dL (3.4-4.8); TOTAL BILIRUBIN 1.3 mg/dL (0.0-1.0)
[2019-03-26 12:56] LABS: INR 1.1 (0.8-1.2)
[2019-03-26] MEDS ORDERED: LEVOFLOXACIN 500 MG/D5W 100 ML IV ONE (13:00)
[2019-03-26] MEDS ORDERED: NACL 0.9% 1,000 ML IV ONE (13:00)
[2019-03-26] MEDS ORDERED: ALBUTEROL SULFATE 0.083% 2.5 MG/3 ML VIAL.NEB INH PRN (14:15)
[2019-03-26] MEDS ORDERED: BUDESONIDE 0.5 MG/2 ML AMPUL.NEB INH PRN (14:15)
[2019-03-26 15:04] VITALS: BP_SYST 125
[2019-03-26 16:30] VITALS: BP_SYST 147
[2019-03-26] MEDS: MONTELUKAST 10 MG TABLET PO SCH (18:28)
[2019-03-26] MEDS: ACETAMINOPHEN 325 MG TABLET PO PRN (20:25)
[2019-03-26] MEDS: LITHIUM CARBONATE 300 MG TABLET.SA PO SCH (20:26)
[2019-03-26] MEDS: clonazePAM 0.5 MG TABLET PO SCH (20:26)
[2019-03-26] MEDS: traZODone HCL 50 MG TABLET (DESYREL) PO SCH (20:26)
[2019-03-26] MEDS: FAMOTIDINE 20 MG TABLET PO SCH (20:26)
[2019-03-26] MEDS: LOSARTAN POTASSIUM 50 MG TABLET (COZAAR) PO SCH (20:27)
[2019-03-26] MEDS: FERROUS SULFATE 325 MG TABLET.DR PO SCH (20:27)
[2019-03-27 00:52] VITALS: BP_SYST 129
[2019-03-27 08:00] VITALS: BP_SYST 135
[2019-03-27] MEDS: FAMOTIDINE 20 MG TABLET PO SCH ×2 (08:55→20:21)
[2019-03-27] MEDS: DOCUSATE SODIUM 250 MG CAPSULE PO SCH (08:55)
[2019-03-27] MEDS: METOPROLOL SUCCINATE 50 MG TAB.SR.24H (TOPROL XL) PO SCH (08:55)
[2019-03-27] MEDS: FERROUS SULFATE 325 MG TABLET.DR PO SCH ×2 (08:55→20:21)
[2019-03-27] MEDS: ATORVASTATIN 10 MG TABLET PO SCH (08:56)
[2019-03-27] MEDS: LOSARTAN POTASSIUM 50 MG TABLET (COZAAR) PO SCH ×2 (08:56→20:21)
[2019-03-27] MEDS: clonazePAM 0.5 MG TABLET PO SCH ×2 (08:56→20:21)
[2019-03-27] MEDS: LITHIUM CARBONATE 300 MG TABLET.SA PO SCH ×2 (09:00→20:21)
[2019-03-27 12:00] VITALS: BP_SYST 128
[2019-03-27 16:58] VITALS: BP_SYST 123
[2019-03-27] MEDS: NS IV SCH (17:59)
[2019-03-27] MEDS: GENTAMICIN SULFATE IV SCH (17:59)
[2019-03-27] MEDS: ACETAMINOPHEN 325 MG TABLET PO PRN (18:08)
[2019-03-27] MEDS: MONTELUKAST 10 MG TABLET PO SCH (18:08)
[2019-03-27 20:14] VITALS: BP_SYST 105
[2019-03-27] MEDS: traZODone HCL 50 MG TABLET (DESYREL) PO SCH (20:21)
[2019-03-28] VITALS: BP_SYST 131
[2019-03-28 03:30] LABS: CALCIUM 9.2 mg/dL (8.4-11.0); CREATININE 0.71 mg/dL (0.55-1.30); GENTAMICIN,RANDOM 2.9 ug/mL; POTASSIUM 3.2 mmol/L (3.5-5.1)
[2019-03-28 05:25] LABS: BASOPHILS % (AUTO) 0.5 % (0.0-2.0); EOSINOPHILS # (AUTO) 0.2 K/uL (0.0-0.4); HEMATOCRIT 36.2 % (36-48); HEMOGLOBIN 12.7 g/dL (12.0-16.0); LYMPHOCYTES # (AUTO) 1.6 K/uL (1.0-5.5); LYMPHOCYTES % (AUTO) 20.8 % (20.5-51.5); MEAN CORPUSCULAR HEMOGLOBIN 35 pg (27-31); MEAN CORPUSCULAR HGB CONC 35 % (32-36); MEAN CORPUSCULAR VOLUME 100 fL (79.0-98.0); MONOCYTES # (AUTO) 0.8 K/uL (0.0-1.0); MONOCYTES % (AUTO) 11.1 % (1.7-9.3); NEUTROPHILS % (AUTO) 65.6 % (40.0-70.0); PLATELET COUNT (AUTO) 174 K/uL (130-430); RED BLOOD CELL COUNT(AUTO) 3.62 MIL/uL (4.2-6.2); RED CELL DISTRIBUTION WIDTH 13.3 % (9.0-15.0); WHITE BLOOD COUNT (AUTO) 7.7 K/uL (4.8-10.8)
[2019-03-28 08:04] LABS: PROTHROMBIN TIME 10.5 SECS (9.5-12.5)
[2019-03-28] MEDS: clonazePAM 0.5 MG TABLET PO SCH ×2 (09:00→22:22)
[2019-03-28] MEDS: FERROUS SULFATE 325 MG TABLET.DR PO SCH ×2 (09:00→22:21)
[2019-03-28] MEDS: METOPROLOL SUCCINATE 50 MG TAB.SR.24H (TOPROL XL) PO SCH (09:00)
[2019-03-28] MEDS: DOCUSATE SODIUM 250 MG CAPSULE PO SCH (09:00)
[2019-03-28] MEDS: FAMOTIDINE 20 MG TABLET PO SCH ×2 (09:00→22:22)
[2019-03-28] MEDS: LITHIUM CARBONATE 300 MG TABLET.SA PO SCH ×2 (09:00→22:23)
[2019-03-28] MEDS: LOSARTAN POTASSIUM 50 MG TABLET (COZAAR) PO SCH (09:00)
[2019-03-28] MEDS: ATORVASTATIN 10 MG TABLET PO SCH (09:00)
[2019-03-28 12:25] VITALS: BP_SYST 106
[2019-03-28] MEDS ORDERED: POLYMYXIN 500,000/BACIT.10,000 UNITS in NS IRR 1 L IR ONE (16:00)
[2019-03-28] MEDS: NS IV SCH (16:21)
[2019-03-28] MEDS: GENTAMICIN SULFATE IV SCH (16:21)
[2019-03-28] MEDS ORDERED: POTASSIUM CHLORIDE 40 MEQ in D5W 250 ML IV ONE (16:30)
[2019-03-28] MEDS: KCL 20 mEq in D5NS 1000 mL 1,000 ML IV SCH (16:55)
[2019-03-28 17:11] VITALS: BP_SYST 108
[2019-03-28] MEDS: MONTELUKAST 10 MG TABLET PO SCH (18:58)
[2019-03-28] MEDS: NICOTINE 7 MG/24 HR PATCH.TD24 TD SCH (19:00)
[2019-03-28 20:00] VITALS: BP_SYST 131
[2019-03-28] MEDS: traZODone HCL 50 MG TABLET (DESYREL) PO SCH (22:21)
[2019-03-28 23:38] VITALS: BP_SYST 128
[2019-03-29] MEDS: KCL 20 mEq in D5NS 1000 mL 1,000 ML IV SCH ×3 (02:30→21:49)
[2019-03-29 06:32] LABS: BASOPHILS % (AUTO) 0.5 % (0.0-2.0); EOSINOPHILS # (AUTO) 0.1 K/uL (0.0-0.4); EOSINOPHILS % (AUTO) 1.1 % (0.0-4.0); HEMATOCRIT 34.8 % (36-48); HEMOGLOBIN 12.3 g/dL (12.0-16.0); LYMPHOCYTES # (AUTO) 1.5 K/uL (1.0-5.5); LYMPHOCYTES % (AUTO) 20.9 % (20.5-51.5); MEAN CORPUSCULAR HEMOGLOBIN 35 pg (27-31); MEAN CORPUSCULAR HGB CONC 35 % (32-36); MEAN CORPUSCULAR VOLUME 99 fL (79.0-98.0); MONOCYTES # (AUTO) 0.9 K/uL (0.0-1.0); NEUTROPHILS # (AUTO) 4.7 K/uL (1.8-7.7); NEUTROPHILS % (AUTO) 64.5 % (40.0-70.0); RED BLOOD CELL COUNT(AUTO) 3.52 MIL/uL (4.2-6.2); RED CELL DISTRIBUTION WIDTH 13.5 % (9.0-15.0); WHITE BLOOD COUNT (AUTO) 7.2 K/uL (4.8-10.8)
[2019-03-29 06:44] LABS: CALCIUM 9.6 mg/dL (8.4-11.0); CREATININE 0.53 mg/dL (0.55-1.30); POTASSIUM 4.1 mmol/L (3.5-5.1)
[2019-03-29 07:45] LABS: PLATELET COUNT (AUTO) 155 K/uL (130-430)
[2019-03-29 08:00] VITALS: BP_SYST 101
[2019-03-29] MEDS: LOSARTAN POTASSIUM 50 MG TABLET (COZAAR) PO SCH ×2 (08:23→21:47)
[2019-03-29] MEDS: FERROUS SULFATE 325 MG TABLET.DR PO SCH ×2 (08:24→21:47)
[2019-03-29] MEDS: LITHIUM CARBONATE 300 MG TABLET.SA PO SCH ×2 (08:26→21:46)
[2019-03-29] MEDS: clonazePAM 0.5 MG TABLET PO SCH ×2 (08:26→21:46)
[2019-03-29] MEDS: ATORVASTATIN 10 MG TABLET PO SCH (08:26)
[2019-03-29] MEDS: METOPROLOL SUCCINATE 50 MG TAB.SR.24H (TOPROL XL) PO SCH (08:26)
[2019-03-29] MEDS: FAMOTIDINE 20 MG TABLET PO SCH ×2 (08:26→21:46)
[2019-03-29] MEDS: NICOTINE 7 MG/24 HR PATCH.TD24 TD SCH (09:23)
[2019-03-29] MEDS ORDERED: POLYMYXIN 500,000/BACIT.10,000 UNITS in NS IRR 1 L IR ONE (11:12)
[2019-03-29] MEDS ORDERED: KETOROLAC TROMETHAMINE 60 MG/2 ML VIAL IM PRN (11:15)
[2019-03-29] MEDS ORDERED: DIPHENHYDRAMINE INJ 50 MG/ML VIAL IVP PRN (11:15)
[2019-03-29] MEDS ORDERED: ONDANSETRON HCL 4 MG/2 ML VIAL IVP PRN (11:15)
[2019-03-29] MEDS ORDERED: MORPHINE SULFATE 10MG/10ML PF AMP SP SCH (11:15)
[2019-03-29] MEDS ORDERED: NALOXONE HCL 0.4 MG/ML AMP (NARCAN) IVP PRN ×2 (11:15)
[2019-03-29 12:00] VITALS: BP_SYST 101
[2019-03-29] MEDS ORDERED: MILK OF MAGNESIA 30 ML UDC PO PRN (13:00)
[2019-03-29] MEDS ORDERED: ONDANSETRON 4 MG ODT TAB PO PRN (13:00)
[2019-03-29] MEDS: CEFAZOLIN 1 GM IVPB PREMIX 50 ML IV SCH ×2 (14:55→21:48)
[2019-03-29 16:00] VITALS: BP_SYST 116
[2019-03-29] MEDS: NS IV SCH (17:15)
[2019-03-29] MEDS: GENTAMICIN SULFATE IV SCH (17:15)
[2019-03-29] MEDS: MONTELUKAST 10 MG TABLET PO SCH (18:15)
[2019-03-29 20:00] VITALS: BP_SYST 130
[2019-03-29] MEDS: traZODone HCL 50 MG TABLET (DESYREL) PO SCH (21:47)
[2019-03-29] MEDS: ACETAMINOPHEN 325 MG TABLET PO PRN (23:43)
[2019-03-30 00:28] VITALS: BP_SYST 101
[2019-03-30] MEDS: HYDROcodone/ACETAMIN 5-325 MG TAB (NORCO/ VICODIN) PO PRN (04:58)
[2019-03-30 07:24] LABS: BASOPHILS % (AUTO) 0.2 % (0.0-2.0); EOSINOPHILS % (AUTO) 0.1 % (0.0-4.0); HEMATOCRIT 29.6 % (36-48); HEMOGLOBIN 10.3 g/dL (12.0-16.0); LYMPHOCYTES # (AUTO) 0.9 K/uL (1.0-5.5); LYMPHOCYTES % (AUTO) 11.2 % (20.5-51.5); MEAN CORPUSCULAR HEMOGLOBIN 34 pg (27-31); MEAN CORPUSCULAR HGB CONC 35 % (32-36); MEAN CORPUSCULAR VOLUME 97 fL (79.0-98.0); MONOCYTES # (AUTO) 1.1 K/uL (0.0-1.0); MONOCYTES % (AUTO) 13.5 % (1.7-9.3); NEUTROPHILS # (AUTO) 5.9 K/uL (1.8-7.7); PLATELET COUNT (AUTO) 166 K/uL (130-430); RED BLOOD CELL COUNT(AUTO) 3.06 MIL/uL (4.2-6.2); RED CELL DISTRIBUTION WIDTH 13.3 % (9.0-15.0); WHITE BLOOD COUNT (AUTO) 7.8 K/uL (4.8-10.8)
[2019-03-30 07:55] LABS: CALCIUM 8.9 mg/dL (8.4-11.0); CREATININE 0.7 mg/dL (0.55-1.30); POTASSIUM 3.8 mmol/L (3.5-5.1)
[2019-03-30 08:09] VITALS: BP_SYST 98
[2019-03-30] MEDS: ATORVASTATIN 10 MG TABLET PO SCH ×2 (09:00→10:03)
[2019-03-30] MEDS: FERROUS SULFATE 325 MG TABLET.DR PO SCH ×3 (09:00→21:39)
[2019-03-30] MEDS: LOSARTAN POTASSIUM 50 MG TABLET (COZAAR) PO SCH ×2 (09:00→21:39)
[2019-03-30] MEDS: DOCUSATE SODIUM 250 MG CAPSULE PO SCH ×2 (09:00→10:03)
[2019-03-30] MEDS: METOPROLOL SUCCINATE 50 MG TAB.SR.24H (TOPROL XL) PO SCH ×2 (09:00→10:06)
[2019-03-30] MEDS: FAMOTIDINE 20 MG TABLET PO SCH ×3 (09:00→21:41)
[2019-03-30] MEDS: NICOTINE 7 MG/24 HR PATCH.TD24 TD SCH (10:02)
[2019-03-30] MEDS: KCL 20 mEq in D5NS 1000 mL 1,000 ML IV SCH ×2 (10:02→22:03)
[2019-03-30] MEDS: LITHIUM CARBONATE 300 MG TABLET.SA PO SCH ×2 (10:03→21:38)
[2019-03-30] MEDS: clonazePAM 0.5 MG TABLET PO SCH ×2 (10:03→21:38)
[2019-03-30] MEDS: ENOXAPARIN SODIUM 40 MG/0.4 ML SYRINGE SUBCUT SCH (10:10)
[2019-03-30 12:06] VITALS: BP_SYST 92
[2019-03-30 16:15] VITALS: BP_SYST 130
[2019-03-30 17:15] LABS: BILIRUBIN,URINE NEGATIVE (NEGATIVE); BLOOD, URINE NEGATIVE (NEGATIVE); CLARITY/URINE CLEAR (CLEAR); COLOR,URINE YELLOW (YELLOW); GLUCOSE,URINE NEGATIVE (NEGATIVE); KETONES,URINE NEGATIVE (NEGATIVE); LEUKOCYTE ESTERASE ,URINE NEGATIVE (NEGATIVE); NITRITE, URINE NEGATIVE (NEGATIVE); PROTEIN URINE NEGATIVE (NEGATIVE)
[2019-03-30] MEDS: MONTELUKAST 10 MG TABLET PO SCH (17:24)
[2019-03-30] MEDS: NS IV SCH (17:24)
[2019-03-30] MEDS: GENTAMICIN SULFATE IV SCH (17:24)
[2019-03-30 20:00] VITALS: BP_SYST 126
[2019-03-30] MEDS: traZODone HCL 50 MG TABLET (DESYREL) PO SCH (21:38)
[2019-03-31] VITALS: BP_SYST 142; BP_SYST 144
[2019-03-31 00:03] VITALS: BP_SYST 120
[2019-03-31] MEDS: KCL 20 mEq in D5NS 1000 mL 1,000 ML IV SCH ×2 (04:30→14:21)
[2019-03-31 08:00] VITALS: BP_SYST 116
[2019-03-31] MEDS: DOCUSATE SODIUM 250 MG CAPSULE PO SCH (08:27)
[2019-03-31] MEDS: FERROUS SULFATE 325 MG TABLET.DR PO SCH ×2 (08:28→22:32)
[2019-03-31] MEDS: FAMOTIDINE 20 MG TABLET PO SCH ×2 (08:28→22:29)
[2019-03-31] MEDS: ATORVASTATIN 10 MG TABLET PO SCH (08:29)
[2019-03-31] MEDS: LITHIUM CARBONATE 300 MG TABLET.SA PO SCH ×3 (08:30→22:31)
[2019-03-31] MEDS: LOSARTAN POTASSIUM 50 MG TABLET (COZAAR) PO SCH ×2 (08:31→22:28)
[2019-03-31] MEDS: METOPROLOL SUCCINATE 50 MG TAB.SR.24H (TOPROL XL) PO SCH (08:32)
[2019-03-31] MEDS: clonazePAM 0.5 MG TABLET PO SCH ×2 (08:32→22:28)
[2019-03-31] MEDS: NICOTINE 7 MG/24 HR PATCH.TD24 TD SCH (08:33)
[2019-03-31] MEDS: ENOXAPARIN SODIUM 40 MG/0.4 ML SYRINGE SUBCUT SCH (08:41)
[2019-03-31 11:33] VITALS: BP_SYST 118
[2019-03-31] MEDS: ACETAMINOPHEN 325 MG TABLET PO PRN (12:57)
[2019-03-31 15:56] VITALS: BP_SYST 123
[2019-03-31] MEDS: NS IV SCH (16:57)
[2019-03-31] MEDS: GENTAMICIN SULFATE IV SCH (16:57)
[2019-03-31] MEDS: MONTELUKAST 10 MG TABLET PO SCH (17:00)
[2019-03-31 20:00] VITALS: BP_SYST 101
[2019-03-31] MEDS: traZODone HCL 50 MG TABLET (DESYREL) PO SCH (21:00)
[2019-04-01 00:12] VITALS: BP_SYST 94
[2019-04-01] MEDS: KCL 20 mEq in D5NS 1000 mL 1,000 ML IV SCH ×3 (03:13→21:48)
[2019-04-01 08:00] VITALS: BP_SYST 113
[2019-04-01] MEDS: METOPROLOL SUCCINATE 50 MG TAB.SR.24H (TOPROL XL) PO SCH (09:00)
[2019-04-01] MEDS: LOSARTAN POTASSIUM 50 MG TABLET (COZAAR) PO SCH ×2 (09:00→21:00)
[2019-04-01 10:28] VITALS: BP_SYST 113
[2019-04-01] MEDS: FERROUS SULFATE 325 MG TABLET.DR PO SCH ×2 (10:31→21:37)
[2019-04-01] MEDS: ATORVASTATIN 10 MG TABLET PO SCH (10:33)
[2019-04-01] MEDS: DOCUSATE SODIUM 250 MG CAPSULE PO SCH (10:36)
[2019-04-01] MEDS: clonazePAM 0.5 MG TABLET PO SCH ×2 (10:37→21:37)
[2019-04-01] MEDS: FAMOTIDINE 20 MG TABLET PO SCH ×2 (10:37→21:37)
[2019-04-01] MEDS: NICOTINE 7 MG/24 HR PATCH.TD24 TD SCH (10:38)
[2019-04-01] MEDS: ENOXAPARIN SODIUM 40 MG/0.4 ML SYRINGE SUBCUT SCH (10:39)
[2019-04-01] MEDS: LITHIUM CARBONATE 300 MG TABLET.SA PO SCH (10:50)
[2019-04-01 11:38] VITALS: BP_SYST 120
[2019-04-01] MEDS: HYDROcodone/ACETAMIN 5-325 MG TAB (NORCO/ VICODIN) PO PRN ×2 (12:53→21:42)
[2019-04-01 15:28] VITALS: BP_SYST 100
[2019-04-01] MEDS: MONTELUKAST 10 MG TABLET PO SCH (17:41)
[2019-04-01] MEDS: GENTAMICIN SULFATE IV SCH (18:44)
[2019-04-01] MEDS: NS IV SCH (18:44)
[2019-04-01 21:31] VITALS: BP_SYST 100
[2019-04-01] MEDS: traZODone HCL 50 MG TABLET (DESYREL) PO SCH (21:38)
[2019-04-02] VITALS (8 sets, daily range): BP systolic 75–104
[2019-04-02] MEDS: KCL 20 mEq in D5NS 1000 mL 1,000 ML IV SCH ×2 (06:30→10:13)
[2019-04-02] MEDS: METOPROLOL SUCCINATE 50 MG TAB.SR.24H (TOPROL XL) PO SCH (09:00)
[2019-04-02] MEDS: LOSARTAN POTASSIUM 50 MG TABLET (COZAAR) PO SCH (09:00)
[2019-04-02] MEDS: clonazePAM 0.5 MG TABLET PO SCH (10:13)
[2019-04-02] MEDS: FERROUS SULFATE 325 MG TABLET.DR PO SCH (10:13)
[2019-04-02] MEDS: LITHIUM CARBONATE 300 MG TABLET.SA PO SCH (10:13)
[2019-04-02] MEDS: FAMOTIDINE 20 MG TABLET PO SCH (10:14)
[2019-04-02] MEDS: ENOXAPARIN SODIUM 40 MG/0.4 ML SYRINGE SUBCUT SCH (10:15)
[2019-04-02] MEDS: ATORVASTATIN 10 MG TABLET PO SCH (10:15)
[2019-04-02] MEDS: NICOTINE 7 MG/24 HR PATCH.TD24 TD SCH (10:15)
[2019-04-02] MEDS: DOCUSATE SODIUM 250 MG CAPSULE PO SCH (10:15)
[2019-04-02] MEDS: HYDROcodone/ACETAMIN 5-325 MG TAB (NORCO/ VICODIN) PO PRN (12:40)
[2019-04-02] MEDS ORDERED: NS 500 ML IV ONE ×2 (14:30→15:15)
[2019-04-02] MEDS: NS IV SCH (16:45)
[2019-04-02] MEDS: GENTAMICIN SULFATE IV SCH (16:45)
== END 2019-04-02 18:25 | DRG 470 ==
LOC: SED 10:57 → SMU 12:47
PROVIDERS: ADMIT Family Medicine; ATTEND Family Medicine
PROC: 0SRS0JA Replacement of Left Hip Joint, Femoral Surface with Synthetic Substitute, Uncemented, Open Approach (ICD-10-PCS; principal; 2019-03-29 09:30)
DX: S72.142A Displaced intertrochanteric fracture of left femur, initial encounter for closed fracture (principal); N39.0 Urinary tract infection, site not specified; F03.90 Unspecified dementia, unspecified severity, without behavioral disturbance, psychotic disturbance, mood disturbance, and anxiety; M81.0 Age-related osteoporosis without current pathological fracture; J44.9 Chronic obstructive pulmonary disease, unspecified; W18.39XA Other fall on same level, initial encounter; I10 Essential (primary) hypertension; Z79.899 Other long term (current) drug therapy; Z88.0 Allergy status to penicillin; Z88.8 Allergy status to other drugs, medicaments and biological substances; Z88.1 Allergy status to other antibiotic agents; Y93.89 Activity, other specified; Y92.89 Other specified places as the place of occurrence of the external cause; Y99.8 Other external cause status
CPT/HCPCS: 36415; 71045; 72170-TC; 73521; 80048; 80053; 80170-TC; 81000-TC; 81003; 83735-TC; 85025; 85610-TC; 85730-TC; 86870; 86886; 86900; 86901; 87081; 87086; 87186-TC; 88305; 88311; 93005; 94640; 96365; 97116-GP; 97530-GP; 99285; C1713; C1776; J0690; J1580; J1650; J1956; J2001; J2250; J2274; J3480; J3490; J7030; J7060; J7120; J7626

== ENCOUNTER 2019-04-11 17:54 | Inpatient (IN) | payer OTHER, MEDICAID ==
[~2019-04-11] VITALS: Ht 154.9 cm; Wt 56.7 kg
[~2019-04-11 17:54] MED LIST changes: +ACET325T53 PO; +ALBU2.5V7 INH; +BUDE0.5A4 NEB; -BUPIVACAINE /PF 0.25% 30 ML VIAL INJ ONE; -BUPIVACAINE /PF 0.75% 10 ML VIAL INJ ONE; -CEFAZOLIN 2 GM IVPB PREMIX 50 ML IV ONE; +CLON1TAB12 PO; +CLOP75TA32 PO; +CRAN450C PO; -LIDOCAINE 1% 10 MG/ML, 20 ML MDV INJ ONE; -LR 1,000 ML IV.SOLN IV ONE; +METO50TA7 PO; -MIDAZOLAM HCL 5 MG/5 ML VIAL IVP ONE; +MONT10TA25 PO; -MORPHINE SULFATE 10MG/10ML PF AMP EP ONE; +PEDI1TAB28 PO; +TRAZ-250 PO
[2019-04-11 18:00] VITALS: BP_SYST 107
[2019-04-11 19:25] LABS: BASOPHILS # (AUTO) 0.1 K/uL (0.0-0.2); BASOPHILS % (AUTO) 0.7 % (0.0-2.0); EOSINOPHILS # (AUTO) 0.1 K/uL (0.0-0.4); EOSINOPHILS % (AUTO) 1.2 % (0.0-4.0); HEMATOCRIT 31.6 % (36-48); HEMOGLOBIN 10.7 g/dL (12.0-16.0); LYMPHOCYTES # (AUTO) 1.3 K/uL (1.0-5.5); LYMPHOCYTES % (AUTO) 12.7 % (20.5-51.5); MEAN CORPUSCULAR HEMOGLOBIN 33 pg (27-31); MEAN CORPUSCULAR HGB CONC 34 % (32-36); MEAN CORPUSCULAR VOLUME 96 fL (79.0-98.0); MONOCYTES # (AUTO) 0.6 K/uL (0.0-1.0); NEUTROPHILS % (AUTO) 79.4 % (40.0-70.0); PLATELET COUNT (AUTO) 499 K/uL (130-430); RED BLOOD CELL COUNT(AUTO) 3.28 MIL/uL (4.2-6.2); RED CELL DISTRIBUTION WIDTH 14.1 % (9.0-15.0); WHITE BLOOD COUNT (AUTO) 10.1 K/uL (4.8-10.8)
[2019-04-11 19:36] LABS: CALCIUM 11.1 mg/dL (8.4-11.0); CREATININE 0.74 mg/dL (0.55-1.30); POTASSIUM 3.8 mmol/L (3.5-5.1)
[2019-04-11 19:39] LABS: INR 1.1 (0.8-1.2); PROTHROMBIN TIME 11.1 SECS (9.5-12.5)
[2019-04-11 19:41] LABS: ALBUMIN 2.6 g/dL (3.4-4.8); TOTAL BILIRUBIN 0.5 mg/dL (0.0-1.0)
[2019-04-11] MEDS ORDERED: NACL 0.9% 1,000 ML IV ONE (20:15)
[2019-04-11] MEDS ORDERED: MORPHINE 2 MG/ML INJ. SYRINGE IVP ONE (20:15)
[2019-04-12 01:13] VITALS: BP_SYST 111
[2019-04-12] MEDS ORDERED: ALBUTEROL SULFATE 0.083% 2.5 MG/3 ML VIAL.NEB INH PRN (01:30)
[2019-04-12] MEDS: HYDROcodone/ACETAMIN 5-325 MG TAB (NORCO/ VICODIN) PO PRN (02:17)
[2019-04-12 05:00] VITALS: BP_SYST 111
[2019-04-12 08:00] VITALS: BP_SYST 110
[2019-04-12] MEDS: FERROUS SULFATE 300 MG/5 ML UDC PO SCH ×2 (08:26→21:30)
[2019-04-12] MEDS: LITHIUM CARBONATE 300 MG TABLET.SA PO SCH ×2 (08:27→21:30)
[2019-04-12] MEDS: CLOPIDOGREL BISULFATE 75 MG TABLET PO SCH (08:27)
[2019-04-12] MEDS: ATORVASTATIN 10 MG TABLET PO SCH (08:27)
[2019-04-12] MEDS: METOPROLOL SUCCINATE 50 MG TAB.SR.24H (TOPROL XL) PO SCH (08:27)
[2019-04-12] MEDS: LOSARTAN POTASSIUM 50 MG TABLET (COZAAR) PO SCH ×2 (08:28→21:00)
[2019-04-12] MEDS: clonazePAM 0.5 MG TABLET PO SCH ×2 (08:28→21:29)
[2019-04-12] MEDS: MULTIVITAMINS TAB 1 TABLET PO SCH (08:28)
[2019-04-12] MEDS: FLUPHENAZINE HCL PO SCH (09:00)
[2019-04-12 10:59] LABS: BILIRUBIN,URINE NEGATIVE (NEGATIVE); CLARITY/URINE CLOUDY (CLEAR); COLOR,URINE YELLOW (YELLOW); GLUCOSE,URINE NEGATIVE (NEGATIVE); KETONES,URINE NEGATIVE (NEGATIVE); LEUKOCYTE ESTERASE ,URINE 3+ (NEGATIVE); NITRITE, URINE NEGATIVE (NEGATIVE); PH,URINE 6.5 (5.0-8.0); PROTEIN URINE NEGATIVE (NEGATIVE); UROBILINOGEN,URINE 0.2 (0.2-1.0)
[2019-04-12 11:00] LABS: BLOOD, URINE TRACE (NEGATIVE)
[2019-04-12 11:05] LABS: BACTERIA,URINE FEW /HPF (None Seen); MUCUS,URINE 2+ /LPF (None Seen); URINE AMORPHOUS URATE 3+ /HPF (None Seen)
[2019-04-12] MEDS ORDERED: HYDROmorphone 1 MG INJ. 1 MG/ML AMPUL IM PRN (11:15)
[2019-04-12 12:00] VITALS: BP_SYST 115
[2019-04-12] MEDS: KCL 20 mEq in D5/0.45NS 1000mL 1,000 ML IV SCH (12:30)
[2019-04-12] MEDS ORDERED: D5NS 1,000 ML IV SCH (14:30)
[2019-04-12] MEDS ORDERED: ACETAMINOPHEN/CODEINE 300 MG-30 MG TABLET PO PRN (14:30)
[2019-04-12] MEDS: HYDROmorphone 1 MG INJ. 1 MG/ML AMPUL IVP PRN ×4 (15:04→22:40)
[2019-04-12] MEDS ORDERED: HYDROmorphone 1 MG INJ. 1 MG/ML AMPUL ONE (15:12)
[2019-04-12 16:00] VITALS: BP_SYST 132
[2019-04-12 20:00] VITALS: BP_SYST 107
[2019-04-12] MEDS: FLUPHENAZINE HCL 10 MG PO SCH (21:00)
[2019-04-12] MEDS: traZODone HCL 50 MG TABLET (DESYREL) PO SCH (21:30)
[2019-04-12] MEDS: ACETAMINOPHEN 325 MG TABLET PO PRN (22:36)
[2019-04-13 00:30] VITALS: BP_SYST 85
[2019-04-13] MEDS ORDERED: NS 500 ML IV ONE (01:00)
[2019-04-13] MEDS: KCL 20 mEq in D5/0.45NS 1000mL 1,000 ML IV SCH ×4 (01:32→21:47)
[2019-04-13 01:43] VITALS: BP_SYST 93
[2019-04-13 06:28] LABS: BASOPHILS # (AUTO) 0.1 K/uL (0.0-0.2); EOSINOPHILS # (AUTO) 0.2 K/uL (0.0-0.4); EOSINOPHILS % (AUTO) 2.1 % (0.0-4.0); HEMATOCRIT 26.6 % (36-48); HEMOGLOBIN 8.9 g/dL (12.0-16.0); LYMPHOCYTES # (AUTO) 1.3 K/uL (1.0-5.5); LYMPHOCYTES % (AUTO) 16.2 % (20.5-51.5); MEAN CORPUSCULAR HEMOGLOBIN 33 pg (27-31); MEAN CORPUSCULAR HGB CONC 34 % (32-36); MEAN CORPUSCULAR VOLUME 97 fL (79.0-98.0); MONOCYTES # (AUTO) 0.6 K/uL (0.0-1.0); MONOCYTES % (AUTO) 7.3 % (1.7-9.3); NEUTROPHILS % (AUTO) 73.4 % (40.0-70.0); PLATELET COUNT (AUTO) 386 K/uL (130-430); RED BLOOD CELL COUNT(AUTO) 2.73 MIL/uL (4.2-6.2); WHITE BLOOD COUNT (AUTO) 8.2 K/uL (4.8-10.8)
[2019-04-13 07:12] LABS: CREATININE 0.53 mg/dL (0.55-1.30)
[2019-04-13 08:00] VITALS: BP_SYST 95
[2019-04-13] MEDS: ATORVASTATIN 10 MG TABLET PO SCH (08:35)
[2019-04-13] MEDS: LITHIUM CARBONATE 300 MG TABLET.SA PO SCH ×2 (08:35→21:11)
[2019-04-13] MEDS: CLOPIDOGREL BISULFATE 75 MG TABLET PO SCH (08:35)
[2019-04-13] MEDS: clonazePAM 0.5 MG TABLET PO SCH ×2 (08:35→21:11)
[2019-04-13] MEDS: MULTIVITAMINS TAB 1 TABLET PO SCH (08:35)
[2019-04-13] MEDS: HYDROcodone/ACETAMIN 5-325 MG TAB (NORCO/ VICODIN) PO PRN (08:36)
[2019-04-13] MEDS: FERROUS SULFATE 300 MG/5 ML UDC PO SCH ×3 (08:36→21:11)
[2019-04-13] MEDS: LOSARTAN POTASSIUM 50 MG TABLET (COZAAR) PO SCH ×2 (08:37→20:00)
[2019-04-13] MEDS: METOPROLOL SUCCINATE 50 MG TAB.SR.24H (TOPROL XL) PO SCH (08:37)
[2019-04-13] MEDS: FLUPHENAZINE HCL PO SCH (08:38)
[2019-04-13 12:00] VITALS: BP_SYST 93
[2019-04-13] MEDS: ACETAMINOPHEN 325 MG TABLET PO PRN ×2 (15:07→23:10)
[2019-04-13 16:46] VITALS: BP_SYST 94
[2019-04-13 20:00] VITALS: BP_SYST 132
[2019-04-13] MEDS: FLUPHENAZINE HCL 10 MG PO SCH (21:00)
[2019-04-13] MEDS: traZODone HCL 50 MG TABLET (DESYREL) PO SCH (21:11)
[2019-04-14 00:30] VITALS: BP_SYST 136
[2019-04-14] MEDS: KCL 20 mEq in D5/0.45NS 1000mL 1,000 ML IV SCH ×2 (05:57→20:11)
[2019-04-14 08:00] VITALS: BP_SYST 109
[2019-04-14] MEDS: FLUPHENAZINE HCL PO SCH (09:00)
[2019-04-14] MEDS: LITHIUM CARBONATE 300 MG TABLET.SA PO SCH ×2 (09:43→20:12)
[2019-04-14] MEDS: FERROUS SULFATE 300 MG/5 ML UDC PO SCH ×2 (09:43→20:12)
[2019-04-14] MEDS: ACETAMINOPHEN 325 MG TABLET PO PRN (09:43)
[2019-04-14] MEDS: ATORVASTATIN 10 MG TABLET PO SCH (09:44)
[2019-04-14] MEDS: LOSARTAN POTASSIUM 50 MG TABLET (COZAAR) PO SCH ×2 (09:44→20:13)
[2019-04-14] MEDS: CLOPIDOGREL BISULFATE 75 MG TABLET PO SCH (09:44)
[2019-04-14] MEDS: clonazePAM 0.5 MG TABLET PO SCH ×2 (09:44→20:12)
[2019-04-14] MEDS: METOPROLOL SUCCINATE 50 MG TAB.SR.24H (TOPROL XL) PO SCH (09:44)
[2019-04-14] MEDS: MULTIVITAMINS TAB 1 TABLET PO SCH (09:44)
[2019-04-14 12:36] VITALS: BP_SYST 94
[2019-04-14 16:26] VITALS: BP_SYST 97
[2019-04-14] MEDS: traZODone HCL 50 MG TABLET (DESYREL) PO SCH (20:12)
[2019-04-14] MEDS: MEGESTROL ACETATE 400 MG/10 ML UDC PO SCH (20:12)
[2019-04-14 20:30] VITALS: BP_SYST 119
[2019-04-14] MEDS: FLUPHENAZINE HCL 10 MG PO SCH (21:00)
[2019-04-15 00:23] VITALS: BP_SYST 109
[2019-04-15] MEDS: KCL 20 mEq in D5/0.45NS 1000mL 1,000 ML IV SCH ×3 (04:38→21:39)
[2019-04-15 08:25] VITALS: BP_SYST 90
[2019-04-15] MEDS: FLUPHENAZINE HCL PO SCH (09:00)
[2019-04-15] MEDS: LITHIUM CARBONATE 300 MG TABLET.SA PO SCH ×2 (09:48→21:37)
[2019-04-15] MEDS: MEGESTROL ACETATE 400 MG/10 ML UDC PO SCH ×2 (09:48→21:41)
[2019-04-15] MEDS: CLOPIDOGREL BISULFATE 75 MG TABLET PO SCH (09:48)
[2019-04-15] MEDS: MULTIVITAMINS TAB 1 TABLET PO SCH (09:48)
[2019-04-15] MEDS: clonazePAM 0.5 MG TABLET PO SCH ×2 (09:48→21:36)
[2019-04-15] MEDS: ATORVASTATIN 10 MG TABLET PO SCH (09:48)
[2019-04-15] MEDS: FERROUS SULFATE 300 MG/5 ML UDC PO SCH ×2 (09:48→21:36)
[2019-04-15] MEDS: LOSARTAN POTASSIUM 50 MG TABLET (COZAAR) PO SCH ×2 (09:50→21:00)
[2019-04-15] MEDS: METOPROLOL SUCCINATE 50 MG TAB.SR.24H (TOPROL XL) PO SCH (09:50)
[2019-04-15 12:00] VITALS: BP_SYST 90
[2019-04-15] MEDS ORDERED: SUCCINYLCHOLINE CHLORIDE 20 MG/ML(QUELICIN) IVP ONE (14:00)
[2019-04-15] MEDS ORDERED: SEVOFLURANE 15 MIN GAS INH ONE (14:00)
[2019-04-15] MEDS ORDERED: PROPOFOL 200MG/ 20ML VIAL (DIPRIVAN) IV ONE (14:00)
[2019-04-15] MEDS ORDERED: LR 1,000 ML IV.SOLN IV ONE (14:00)
[2019-04-15 16:42] VITALS: BP_SYST 101
[2019-04-15 17:37] VITALS: BP_SYST 90
[2019-04-15] MEDS: FLUPHENAZINE HCL 10 MG PO SCH (21:00)
[2019-04-15 21:15] VITALS: BP_SYST 101
[2019-04-15] MEDS: traZODone HCL 50 MG TABLET (DESYREL) PO SCH (21:36)
[2019-04-16 01:00] VITALS: BP_SYST 106
[2019-04-16] MEDS: KCL 20 mEq in D5/0.45NS 1000mL 1,000 ML IV SCH ×3 (04:29→20:40)
[2019-04-16 08:00] VITALS: BP_SYST 89
[2019-04-16] MEDS: MULTIVITAMINS TAB 1 TABLET PO SCH (08:44)
[2019-04-16] MEDS: CLOPIDOGREL BISULFATE 75 MG TABLET PO SCH (08:44)
[2019-04-16] MEDS: LITHIUM CARBONATE 300 MG TABLET.SA PO SCH ×2 (08:44→20:42)
[2019-04-16] MEDS: FERROUS SULFATE 300 MG/5 ML UDC PO SCH ×2 (08:44→20:41)
[2019-04-16] MEDS: ATORVASTATIN 10 MG TABLET PO SCH (08:44)
[2019-04-16] MEDS: MEGESTROL ACETATE 400 MG/10 ML UDC PO SCH ×2 (08:44→20:41)
[2019-04-16] MEDS: FLUPHENAZINE HCL PO SCH (08:55)
[2019-04-16] MEDS: METOPROLOL SUCCINATE 50 MG TAB.SR.24H (TOPROL XL) PO SCH (09:00)
[2019-04-16] MEDS: LOSARTAN POTASSIUM 50 MG TABLET (COZAAR) PO SCH ×2 (09:00→21:00)
[2019-04-16 10:07] VITALS: BP_SYST 92
[2019-04-16] MEDS: clonazePAM 0.5 MG TABLET PO SCH ×2 (10:16→20:41)
[2019-04-16 12:00] VITALS: BP_SYST 99
[2019-04-16 16:00] VITALS: BP_SYST 100
[2019-04-16 20:00] VITALS: BP_SYST 116
[2019-04-16] MEDS: traZODone HCL 50 MG TABLET (DESYREL) PO SCH (20:42)
[2019-04-16] MEDS: FLUPHENAZINE HCL 10 MG PO SCH (21:00)
[2019-04-17] VITALS: BP_SYST 120
[2019-04-17] MEDS: KCL 20 mEq in D5/0.45NS 1000mL 1,000 ML IV SCH ×2 (04:21→13:40)
[2019-04-17 08:00] VITALS: BP_SYST 120
[2019-04-17] MEDS: FLUPHENAZINE HCL PO SCH (09:00)
[2019-04-17] MEDS: CLOPIDOGREL BISULFATE 75 MG TABLET PO SCH (09:25)
[2019-04-17] MEDS: clonazePAM 0.5 MG TABLET PO SCH ×2 (09:26→18:22)
[2019-04-17] MEDS: METOPROLOL SUCCINATE 50 MG TAB.SR.24H (TOPROL XL) PO SCH (09:27)
[2019-04-17] MEDS: ATORVASTATIN 10 MG TABLET PO SCH (09:27)
[2019-04-17] MEDS: LOSARTAN POTASSIUM 50 MG TABLET (COZAAR) PO SCH (09:27)
[2019-04-17] MEDS: MULTIVITAMINS TAB 1 TABLET PO SCH (09:27)
[2019-04-17] MEDS: MEGESTROL ACETATE 400 MG/10 ML UDC PO SCH (09:28)
[2019-04-17] MEDS: FERROUS SULFATE 300 MG/5 ML UDC PO SCH (09:28)
[2019-04-17] MEDS: HYDROcodone/ACETAMIN 5-325 MG TAB (NORCO/ VICODIN) PO PRN ×2 (09:29→18:28)
[2019-04-17] MEDS: LITHIUM CARBONATE 300 MG TABLET.SA PO SCH (09:33)
[2019-04-17 12:35] VITALS: BP_SYST 117
[2019-04-17 16:40] VITALS: BP_SYST 114
[2019-04-17 16:58] VITALS: BP_SYST 114
== END 2019-04-17 19:00 | DRG 559 ==
LOC: SED 17:54 → SMU 19:51
PROVIDERS: ADMIT Family Medicine; ATTEND Family Medicine
PROC: 0SWSXJZ Revision of Synthetic Substitute in Left Hip Joint, Femoral Surface, External Approach (ICD-10-PCS; principal; 2019-04-12 14:00)
DX: T84.021A Dislocation of internal left hip prosthesis, initial encounter (principal); E43 Unspecified severe protein-calorie malnutrition; I10 Essential (primary) hypertension; J44.9 Chronic obstructive pulmonary disease, unspecified; F31.9 Bipolar disorder, unspecified; D64.9 Anemia, unspecified; F17.200 Nicotine dependence, unspecified, uncomplicated; F20.9 Schizophrenia, unspecified; K21.9 Gastro-esophageal reflux disease without esophagitis; Y79.2 Prosthetic and other implants, materials and accessory orthopedic devices associated with adverse incidents; Z88.0 Allergy status to penicillin; Z88.8 Allergy status to other drugs, medicaments and biological substances; Y92.89 Other specified places as the place of occurrence of the external cause; Z79.899 Other long term (current) drug therapy
CPT/HCPCS: 36415; 71045; 72170-TC; 76000; 80048; 80053; 81000-TC; 85025; 85610-TC; 87081; 87086; 93005; 96374; 99285; J0330; J1170; J2270; J2704; J7030; J7040; J7120; L1830

== ENCOUNTER 2019-04-26 20:24 | Inpatient (IN) | payer OTHER, MEDICAID ==
[~2019-04-26] VITALS: Ht 154.9 cm; Wt 62.1 kg
[2019-04-26 20:24] VITALS: BP_SYST 131
[~2019-04-26 20:24] MED LIST changes: -ACET325T53 PO; -BUDE0.5A4 NEB; -DOCU250C14 PO; -FAMO40TA71 PO; +LR 1,000 ML IV.SOLN IV ONE; -MONT10TA25 PO; +PROPOFOL 200MG/ 20ML VIAL (DIPRIVAN) IV ONE; +SEVOFLURANE 15 MIN GAS INH ONE; +SUCCINYLCHOLINE CHLORIDE 20 MG/ML(QUELICIN) IVP ONE
--- NOTE | 2019-04-26 20:50 | NUR ---
Patient to ER bed 4 to gown for evaluation. Side rails up
--- NOTE | 2019-04-26 21:05 | NUR ---
Dr. George bedside for Pt eval
--- NOTE | 2019-04-26 21:12 | NUR ---
Robert HALI from [facility] to the ED for a complaint of left hip dislocation since this morning. She denies any hip pain at this time. The patient reportedly has a history of paranoid schizophrenia, bipolar disorder, UTI, psychosis, encephalopathy, COPD, asthma, hypertension, hyperlipidemia, gastritis, overactive bladder, chronic rhinitis, and diaphragmatic hernia No other complaints and or injuries noted VSS no s/s of acute distress Resting on gurney rails up
--- NOTE | 2019-04-26 21:25 | NUR ---
Portable X Ray bedside, well tolerated
--- NOTE | 2019-04-26 22:40 | NUR ---
VSS no s/s of acute distress Resting on gurney rails up
--- NOTE | 2019-04-26 22:55 | NUR ---
Dr. George bedside to update Pt on Hip Dislocation
--- NOTE | 2019-04-26 23:52 | NUR ---
ADMIT NOTE Received pt from ER to the floor with a diagnosis of dislocation of left hip prosthesis. Admission process initiated. patient oriented to pain management, safety and call light-pt is confused.
--- NOTE | 2019-04-26 23:52 | NUR ---
Patient will be admitted to care of Dr. Iverson. Admitted to Med Surg unit. Will go to room 114. Belongings list completed. Complete and up to date summary report printed. SBAR report to be given at bedside with opportunity for questions.
--- NOTE | 2019-04-27 | NUR ---
Shannan bass in ED - 04/27/[address] George bedside to update Pt on Hip Dislocation
--- NOTE | 2019-04-27 00:01 | NUR ---
pt arrived as admission from [facility]. dx: dislocation of left hip prosthesis. pt confused. pmd: dr. coburn; ortho md: dr. arzola. skin assessment (Mio Ludwig, LALO). pt has saline lock RFA 20G started 04/27/2019. Hx includes psychosis, bipolar d/o, p. schizophrenia.
[2019-04-27 00:08] VITALS: BP_SYST 101
--- NOTE | 2019-04-27 00:51 | NUR ---
CONSULTATION PAGED/CALLED Reason for Consultation: LEFT HIP DISLOCATION Person Who was Notified: MINI Consulting Physician: /DR.BOUZ SMITH Gas Well Drilling Manager Specialty: Ordering Physician:
[2019-04-27] MEDS ORDERED: ALBUTEROL SULFATE 0.083% 2.5 MG/3 ML VIAL.NEB INH PRN (06:45)
--- NOTE | 2019-04-27 06:55 | NUR ---
Pt's Mother (Joanna, CONSERVATOR) called this AM. ("[employer] [place]") (OK to give information to Alana, Pt's sister). Pt's Mother/Conservator reports this is pt's third dislocation and pt needs Nicotene patch, and that pt has metal patch in knee (NO MRI). Pt's Mother/Conservator reports that pt needs Assist with Feedings. Pt's Mother/Conservator also reports that she is looking for 24 hour care for her daughter (pt) and that Lens Molder/SW/Primary MD help in this matter would be appreciated. CM/SW/MD may contact her at [phone] 20/11 (any time day or night, any day of week). Addendum: 04/27/19 at 0708 by [employer] concrete block plant supervisor Dr. Valle - per chart review, notified of pt's admission for dislocated hip.
[2019-04-27 07:25] VITALS: BP_SYST 134
--- NOTE | 2019-04-27 07:25 | NUR ---
INITIAL ROUNDS Received pt AAOx2, pt sitting up in bed with no s/s resp distress, no c/o pain or discomfort. Pt's mother Joanna [conservator] called for consent for left hip surgery-message left for her to call back. Pt had black knee brace on her left knee which smelled strongly of urine-brace removed for surgery. Side rails up x3, bed alarm on and room across from nursing station for safety. Call light within reach.
[2019-04-27 08:17] LABS: BASOPHILS # (AUTO) 0.1 K/uL (0.0-0.2); BASOPHILS % (AUTO) 0.8 % (0.0-2.0); EOSINOPHILS # (AUTO) 0.2 K/uL (0.0-0.4); EOSINOPHILS % (AUTO) 2.7 % (0.0-4.0); HEMATOCRIT 34.2 % (36-48); HEMOGLOBIN 11.4 g/dL (12.0-16.0); LYMPHOCYTES # (AUTO) 1.5 K/uL (1.0-5.5); LYMPHOCYTES % (AUTO) 23.2 % (20.5-51.5); MEAN CORPUSCULAR HEMOGLOBIN 32 pg (27-31); MEAN CORPUSCULAR HGB CONC 33 % (32-36); MEAN CORPUSCULAR VOLUME 96 fL (79.0-98.0); MONOCYTES # (AUTO) 0.3 K/uL (0.0-1.0); NEUTROPHILS # (AUTO) 4.6 K/uL (1.8-7.7); NEUTROPHILS % (AUTO) 68.3 % (40.0-70.0); PLATELET COUNT (AUTO) 338 K/uL (130-430); RED BLOOD CELL COUNT(AUTO) 3.58 MIL/uL (4.2-6.2); RED CELL DISTRIBUTION WIDTH 14.8 % (9.0-15.0); WHITE BLOOD COUNT (AUTO) 6.7 K/uL (4.8-10.8)
[2019-04-27 08:30] LABS: CALCIUM 10.6 mg/dL (8.4-11.0); CREATININE 0.69 mg/dL (0.55-1.30); POTASSIUM 3.5 mmol/L (3.5-5.1)
[2019-04-27 08:36] LABS: ALBUMIN 3.1 g/dL (3.4-4.8); TOTAL BILIRUBIN 0.7 mg/dL (0.0-1.0)
[2019-04-27 08:38] LABS: INR 1.1 (0.8-1.2); PROTHROMBIN TIME 10.9 SECS (9.5-12.5)
[2019-04-27] MEDS ORDERED: FLUPHENAZINE HCL 2 MG PO SCH (09:00)
[2019-04-27] MEDS: LOSARTAN POTASSIUM 50 MG TABLET (COZAAR) PO SCH ×2 (09:00→21:00)
--- NOTE | 2019-04-27 09:03 | NUR ---
MCCOY CATH/PT LEFT FLOOR TO OR # 16 FR Mccoy catheter with 10 cc bulb inserted with use of sterile technique. Bulb inflated with 10 cc sterile water. Immediate return of 200 cc YELLOW urine noted. Bedside drainage bag placed below level of bladder. Urine sample collected and sent to lab at 0901. Pt tolerated procedure WELL. Pt left floor via bed to OR in no distress.
[2019-04-27 09:05] LABS: BILIRUBIN,URINE NEGATIVE (NEGATIVE); CLARITY/URINE SL CLOUDY (CLEAR); COLOR,URINE YELLOW (YELLOW); GLUCOSE,URINE NEGATIVE (NEGATIVE); KETONES,URINE NEGATIVE (NEGATIVE); LEUKOCYTE ESTERASE ,URINE 2+ (NEGATIVE); NITRITE, URINE POSITIVE (NEGATIVE); PROTEIN URINE NEGATIVE (NEGATIVE); UROBILINOGEN,URINE 0.2 (0.2-1.0)
[2019-04-27 09:27] LABS: BLOOD, URINE TRACE (NEGATIVE)
[2019-04-27 09:29] LABS: BACTERIA,URINE MANY /HPF (None Seen); MUCUS,URINE 1+ /LPF (None Seen); YEAST,URINE None Seen /HPF (None Seen)
[2019-04-27] MEDS ORDERED: MEPERIDINE HCL/PF 25 MG/ML DISP.SYRIN ONE (10:18)
[2019-04-27 10:45] VITALS: BP_SYST 134
--- NOTE | 2019-04-27 10:45 | NUR ---
PT BACK FROM OR Received report from Fox MAY from PACU. Pt had Closed reduction of left hip, abductor pillow in place. Noted Dr. Chang placed a right internal jugular central line prior to the surgery. Vital signs stable. Skin and safety precautions in place. Call light within reach.
[2019-04-27 11:02] VITALS: BP_SYST 134
[2019-04-27] MEDS: clonazePAM 0.5 MG TABLET PO SCH ×2 (11:09→22:31)
[2019-04-27] MEDS: LITHIUM CARBONATE 300 MG TABLET.SA PO SCH ×2 (11:10→22:32)
[2019-04-27] MEDS: METOPROLOL SUCCINATE 50 MG TAB.SR.24H (TOPROL XL) PO SCH (11:11)
[2019-04-27] MEDS: ATORVASTATIN 10 MG TABLET PO SCH (11:15)
[2019-04-27] MEDS: CLOPIDOGREL BISULFATE 75 MG TABLET PO SCH (11:15)
[2019-04-27] MEDS: FERROUS SULFATE 300 MG/5 ML UDC PO SCH ×2 (11:15→22:31)
[2019-04-27] MEDS ORDERED: MULTIVITAMINS TAB 1 TABLET PO ONE (12:30)
--- NOTE | 2019-04-27 13:00 | NUR ---
ROUNDS/FOOD Pt sitting up in bed, encouraged to eat > 50% of meal, noted pt drinking fluids. No s/s resp distress, no c/o pain or discomfort. Hip abductor pillow in place. All precautions remain in place. Call light within reach.
[2019-04-27] MEDS: KCL 20 mEq in D5/0.45NS 1000mL 1,000 ML IV SCH (13:20)
--- NOTE | 2019-04-27 14:33 | NUR ---
ROUNDS Pt sitting up in bed pulling at the straps for her abductor pillow, pt educated on the purpose of the pillow and not to remove the straps-pt stated "okay", then started crying and mumbling to herself. Pt asked if she was in pain and she stated she wanted the pillow removed. Blankets pulled up and straps covered. All precautions remain in place.
[2019-04-27 16:36] VITALS: BP_SYST 121
--- NOTE | 2019-04-27 17:55 | NUR ---
DRESSING CHANGE/GOWN CHANGE Pt accidently pulled off her central line dressing when she moved her hair, central line and stitches intact. New central line dressing placed using sterile technique. Pt's hair put up in a pony tail. Pt tolerated well. Pt's gown changed due to pt dropped putting on it.
--- NOTE | 2019-04-27 19:51 | NUR ---
CLOSING NOTE Pt resting quietly in bed with no s/s resp distress, no c/o pain or discomfort. Wedge pillow between pt's legs with straps in place. Pt pulled out her IJ Central line, noted blue tip intact, stitches removed, no bleeding noted. Attempted to place new IV twice, no blood return. hospital pharmacy director informed. All precautions remain in place. Call light within reach.
[2019-04-27] MEDS: FLUPHENAZINE 10 MG PO SCH (21:00)
[2019-04-27] MEDS: traZODone HCL 50 MG TABLET (DESYREL) PO SCH (22:34)
[2019-04-28 01:56] VITALS: BP_SYST 95
[2019-04-28] MEDS: KCL 20 mEq in D5/0.45NS 1000mL 1,000 ML IV SCH ×2 (03:21→17:12)
--- NOTE | 2019-04-28 06:49 | NUR ---
Nutrition Update Robb Scale 15 noted. Pt admitted for Dislocation of L hip prosthesis Diet: Mechanical soft BMI: 25.9 kg/m2 RD to follow per nutrition care standards.
[2019-04-28 07:26] LABS: BASOPHILS % (AUTO) 0.5 % (0.0-2.0); EOSINOPHILS # (AUTO) 0.2 K/uL (0.0-0.4); EOSINOPHILS % (AUTO) 2.5 % (0.0-4.0); HEMATOCRIT 30.5 % (36-48); LYMPHOCYTES # (AUTO) 1.3 K/uL (1.0-5.5); LYMPHOCYTES % (AUTO) 19.9 % (20.5-51.5); MEAN CORPUSCULAR HEMOGLOBIN 32 pg (27-31); MEAN CORPUSCULAR HGB CONC 33 % (32-36); MEAN CORPUSCULAR VOLUME 96 fL (79.0-98.0); MONOCYTES # (AUTO) 0.4 K/uL (0.0-1.0); MONOCYTES % (AUTO) 6.6 % (1.7-9.3); NEUTROPHILS # (AUTO) 4.5 K/uL (1.8-7.7); NEUTROPHILS % (AUTO) 70.5 % (40.0-70.0); PLATELET COUNT (AUTO) 278 K/uL (130-430); RED BLOOD CELL COUNT(AUTO) 3.16 MIL/uL (4.2-6.2); RED CELL DISTRIBUTION WIDTH 14.9 % (9.0-15.0); WHITE BLOOD COUNT (AUTO) 6.3 K/uL (4.8-10.8)
[2019-04-28 08:00] VITALS: BP_SYST 119
--- NOTE | 2019-04-28 08:00 | NUR ---
Note Pt assisted in sitting up in bed to eat her breakfast. No SOB/resp distress or pain/discomfort noted a this time. Pt has abductor pillow between legs - pt had closed reduction of left hip (was dislocated). No needs noted at this time. Call light within reach.
[2019-04-28 08:03] LABS: CALCIUM 9.9 mg/dL (8.4-11.0); CREATININE 0.5 mg/dL (0.55-1.30); POTASSIUM 3.6 mmol/L (3.5-5.1)
[2019-04-28] MEDS: MULTIVITAMINS TAB 1 TABLET PO SCH (09:20)
[2019-04-28] MEDS: LITHIUM CARBONATE 300 MG TABLET.SA PO SCH ×2 (09:20→20:44)
[2019-04-28] MEDS: clonazePAM 0.5 MG TABLET PO SCH ×2 (09:20→20:46)
[2019-04-28] MEDS: FERROUS SULFATE 300 MG/5 ML UDC PO SCH ×2 (09:20→20:46)
[2019-04-28] MEDS: CLOPIDOGREL BISULFATE 75 MG TABLET PO SCH (09:20)
[2019-04-28] MEDS: LOSARTAN POTASSIUM 50 MG TABLET (COZAAR) PO SCH ×2 (09:21→20:59)
[2019-04-28] MEDS: METOPROLOL SUCCINATE 50 MG TAB.SR.24H (TOPROL XL) PO SCH (09:21)
[2019-04-28] MEDS: ATORVASTATIN 10 MG TABLET PO SCH (09:21)
--- NOTE | 2019-04-28 11:00 | NUR ---
Note Pt was given hygiene care and partial bed bath by WATER PUMPING STATION ENGINEER. Pt next to nurses' station for close observation for needs and care. Pt has some confusion/forgetfulness. Call light within reach.
[2019-04-28 12:15] VITALS: BP_SYST 102
--- NOTE | 2019-04-28 14:30 | NUR ---
Note Dr Iverson on the floor at bedside assessing pt and answering questions/concerns at this time. No needs noted at this time. Call light within reach. Pt instructed not to pull at wrap covering IV site.
[2019-04-28 16:22] VITALS: BP_SYST 102
--- NOTE | 2019-04-28 18:38 | NUR ---
Note Pt sitting up in bed eating her dinner. No SOB/resp distress or pain/discomfort noted at this time. Addendum: 04/28/19 at 1849 by Tamara Tay RN Pt was checked on q1 and PRN all shift for needs and care. Abductor pillow between legs all shift. IV in right forearm intact and patent infusing IVF's well. Pt next to nurses' station for close observation for needs and care. No needs noted at this time. Call light within reach.
--- NOTE | 2019-04-28 19:12 | NUR ---
OPENING NOTES Receive report from morning shift nurse. Patient AOx1, confusion is noted. Patient IVF infusing well, patency noted. No signs of respiratory distress and discomfort noted. HOB slightly elevated. Patient has leg abductor, attached and secured. Agrawal catheter attached and secured, draining by gravity. Call light within reach. Safety precautions in place. Bed alarm on. Will continue to monitor patient.
[2019-04-28 20:07] VITALS: BP_SYST 94
[2019-04-28] MEDS: traZODone HCL 50 MG TABLET (DESYREL) PO SCH (20:45)
--- NOTE | 2019-04-28 20:46 | NUR ---
MED PASS Due medications given at this time, patient tolerated well. Cozaar was held, BP decrease 94/63, recorded. Patient has no signs of respiratory distress and discomfort noted. Safety precautions in place. Call light within reach. Will continue to monitor patient.
[2019-04-28] MEDS: FLUPHENAZINE 10 MG PO SCH (21:00)
--- NOTE | 2019-04-28 23:30 | NUR ---
RN ROUNDS Patient asleep at this time. No signs of respiratory distress and discomfort noted. Breathing even and unlabored. Safety precautions in place. Call light within, Will continue to monitor patient.
[2019-04-29 01:14] VITALS: BP_SYST 112
--- NOTE | 2019-04-29 02:00 | NUR ---
RN ROUNDS Patient asleep. No signs of respiratory distress and discomfort noted. Breathing even and unlabored. Safety precautions in place. Call light within, Will continue to monitor patient.
--- NOTE | 2019-04-29 04:30 | NUR ---
RN ROUNDS Patient asleep at this time, no signs of respiratory distress and discomfort noted. Breathing even and unlabored. Agrawal catheter attached and secured, draining by gravity. IVF infusing well. Safety precautions in place. Will continue to monitor patient.
[2019-04-29] MEDS ORDERED: KCL 20 mEq in D5/0.45NS 1000mL 1,000 ML IV ONE (06:24)
[2019-04-29] MEDS: KCL 20 mEq in D5/0.45NS 1000mL 1,000 ML IV SCH ×2 (06:27→17:50)
--- NOTE | 2019-04-29 07:00 | NUR ---
CLOSING NOTES Patient asleep at this time, no signs of respiratory distress and discomfort noted. Breathing even and unlabored. Agrawal catheter attached and secured, draining by gravity. IV site infiltrated, IV catheter was removed, catheter intact. Safety precautions in place. Bed alarm on. Call light within reach. All needs met throughout the shift. Will continue to monitor patient until endorse to oncoming shift nurse.
[2019-04-29 08:00] VITALS: BP_SYST 118
--- NOTE | 2019-04-29 08:00 | NUR ---
Note Pt was assisted in sitting up in bed to eat breakfast. Pt has abductor pillow between legs. No SOB/resp distress or pain/discomfort noted at this time. Pt's 3 IV's are all infiltrated and dc'd at thi time.
[2019-04-29] MEDS: FERROUS SULFATE 300 MG/5 ML UDC PO SCH ×2 (08:55→22:33)
[2019-04-29] MEDS: LOSARTAN POTASSIUM 50 MG TABLET (COZAAR) PO SCH ×3 (08:56→21:00)
[2019-04-29] MEDS: LITHIUM CARBONATE 300 MG TABLET.SA PO SCH ×3 (08:56→22:33)
[2019-04-29] MEDS: clonazePAM 0.5 MG TABLET PO SCH ×3 (08:56→22:32)
[2019-04-29] MEDS: MULTIVITAMINS TAB 1 TABLET PO SCH ×2 (08:57→09:00)
[2019-04-29] MEDS: METOPROLOL SUCCINATE 50 MG TAB.SR.24H (TOPROL XL) PO SCH ×2 (08:57→09:00)
[2019-04-29] MEDS: CLOPIDOGREL BISULFATE 75 MG TABLET PO SCH ×2 (08:57→09:00)
[2019-04-29] MEDS: ATORVASTATIN 10 MG TABLET PO SCH ×2 (08:57→09:00)
--- NOTE | 2019-04-29 11:00 | NUR ---
Note Pt drank her Ferrous oral syrup. Refused any of the PO medications that were crushed in apple sauce. Pt keeps pulling at abductor pillow. Reinforced the importance of keeping abductor pillow between legs. Pt does not comprehend or understand instructions at this time. Pt next to nurses station for close observation for needs and care. Call light within reach.
[2019-04-29 12:33] VITALS: BP_SYST 107
[2019-04-29 16:20] VITALS: BP_SYST 99
--- NOTE | 2019-04-29 17:00 | NUR ---
Note Dr Iverson on the floor to assess pt. MD was notified that pt refused all her PO medications this morning - pt spit them out. Pt's 3 IV were infiltrated - new IV started by recharger Lora. IV site on left forearm wrapped in Kerlix wrap. Pt refuses to let RN insert IVF's - Dr Iverson made aware. Call light within reach.
--- NOTE | 2019-04-29 18:30 | NUR ---
Note Pt sitting up in bed eating her dinner tray. Pt was checked on q1' and PRN all shift for needs and care. No SOB/resp distress or pain/discomfort noted a this time. Pt has abductor pillow between legs all shift. IV in left forearm intact and patent. Call light wihtin reach.
--- NOTE | 2019-04-29 19:00 | NUR ---
OPENING NOTES/STAT LEG X-RAY Receive report from morning shift nurse at bed side. Patient is crying, upon assessment, hip abductor is not attached and secured. Leg length is not align. Charge nurse Ramya and Charge nurse Wilner made aware. made aware, Dr Iverson ordered STAT leg x-ray. Patient is has no signs of respiratory distress. IVF infusing well, patency noted. Call light within reach. Safety precautions in place. Will continue to monitor patient.
[2019-04-29 20:00] VITALS: BP_SYST 114
--- NOTE | 2019-04-29 20:45 | NUR ---
X-RAY RESULT Receive report from radiology, Superior Hip Dislocation Left hip Prosthesis. Will inform
[2019-04-29] MEDS: FLUPHENAZINE 10 MG PO SCH (21:00)
--- NOTE | 2019-04-29 21:08 | NUR ---
SPOKE WITH Spoke with Dr. Fried regarding patients x-ray result. MD verbalized ''to call Dr. Nam instructional specialist tomorrow morning''. Dr. Iverson made aware of the result and gave new orders for PRN pain medication. Will continue to monitor patient
--- NOTE | 2019-04-29 22:23 | NUR ---
MED PASS Due medication given at this time. Patient tolerated well. No signs of respiratory distress and discomfort noted. Patient IVF infusing well. Patient tried to remove her Hip Adbudtor, patient educated on purpose and benefits of the hip abductor. RN keep the hip abductor. Patient is confused. Will continue to monitor patient.
[2019-04-29] MEDS: traZODone HCL 50 MG TABLET (DESYREL) PO SCH (22:33)
[2019-04-29] MEDS: HYDROmorphone 1 MG INJ. 1 MG/ML AMPUL IVP PRN (23:23)
[2019-04-30] VITALS (7 sets, daily range): BP systolic 96–123
--- NOTE | 2019-04-30 00:38 | NUR ---
RN ROUNDS Patient asleep at this time. No signs of respiratory distress and discomfort noted. Breathing even and unlabored. Safety precautions in place. Bed alarm on. Call light within reach, Will continue to monitor patient.
--- NOTE | 2019-04-30 04:30 | NUR ---
RN ROUNDS Patient asleep at this time. No signs of respiratory distress and discomfort noted. Breathing even and unlabored. Safety precautions in place. Hip abductor re attached. Will continue to monitor patient.
[2019-04-30] MEDS: KCL 20 mEq in D5/0.45NS 1000mL 1,000 ML IV SCH ×2 (05:18→17:26)
--- NOTE | 2019-04-30 07:00 | NUR ---
CLOSING NOTES Patient asleep at this time, no signs of respiratory distress and discomfort noted. Breathing even and unlabored. Agrawal catheter attached and secured, draining by gravity. IVF infusing well, patency noted. Hip abductor attached and secured, Left Hip dislocation noted. Patient able to wiggle both toes and move legs. Endorsed to morning shift nurse LALO Shearer to speak with Dr. Nam regarding the result of Hip X-ray 04/29/19. Safety precautions in place. Bed alarm on. Call light within reach. All needs met throughout the shift. Will continue to monitor patient until endorse to oncoming shift nurse.
--- NOTE | 2019-04-30 07:10 | NUR ---
Opening Note Received bedside SBAR report from night assistant RN, patient in bed resting, respirations even and unlabored on room air, IV site clean, dry and intact, Agrawal catheter draining to gravity, no acute distress noted Addendum: 04/30/19 at 0746 by Rob Gross RN Add to above note: Bed in low and locked position with bed alarm on, call light in reach
--- NOTE | 2019-04-30 07:16 | NUR ---
PAGED DR. BARRAZA PER NURSE DIALED [phone] SPOKE TO SHRUTHI
--- NOTE | 2019-04-30 07:30 | NUR ---
Spoke with Physician Spoke with Dr. Nam and informed him X-ray, per Dr. Nam he will be in for surgery at 0900, malthouse laborer notified
[2019-04-30] MEDS ORDERED: MORPHINE 2 MG/ML INJ. SYRINGE IVP PRN (08:30)
[2019-04-30] MEDS ORDERED: ONDANSETRON HCL 4 MG/2 ML VIAL IVP PRN (08:30)
[2019-04-30] MEDS: LOSARTAN POTASSIUM 50 MG TABLET (COZAAR) PO SCH ×2 (09:00→20:56)
[2019-04-30] MEDS: FLUPHENAZINE HCL 2 MG PO SCH (09:00)
--- NOTE | 2019-04-30 09:00 | NUR ---
Patient to OR Patient take to OR via gurney by RN, respirations even and unlabored, no acute distress noted
[2019-04-30] MEDS ORDERED: PROPOFOL 200MG/ 20ML VIAL (DIPRIVAN) IV ONE (09:45)
[2019-04-30] MEDS ORDERED: LR 1,000 ML IV.SOLN IV ONE (09:45)
[2019-04-30] MEDS ORDERED: SUCCINYLCHOLINE CHLORIDE 20 MG/ML(QUELICIN) ONE (09:45)
[2019-04-30] MEDS ORDERED: SEVOFLURANE 15 MIN GAS INH ONE (09:45)
[2019-04-30] MEDS ORDERED: MORPHINE 4 MG/ML INJ. SYRINGE ONE (10:04)
--- NOTE | 2019-04-30 10:12 | NUR ---
Patient back from OR Patient back from OR via gurney, respirations even and unlabored, abductor pillow in place, soft bilateral wrist restraints in place, no incision to left hip noted, patient reports pain is controlled, no acute distress noted
[2019-04-30] MEDS: clonazePAM 0.5 MG TABLET PO SCH ×2 (11:05→20:54)
[2019-04-30] MEDS: FERROUS SULFATE 300 MG/5 ML UDC PO SCH ×2 (11:05→20:54)
[2019-04-30] MEDS: LITHIUM CARBONATE 300 MG TABLET.SA PO SCH ×2 (11:06→20:54)
[2019-04-30] MEDS: MULTIVITAMINS TAB 1 TABLET PO SCH (11:06)
[2019-04-30] MEDS: CLOPIDOGREL BISULFATE 75 MG TABLET PO SCH (11:06)
[2019-04-30] MEDS: ATORVASTATIN 10 MG TABLET PO SCH (11:06)
[2019-04-30] MEDS: METOPROLOL SUCCINATE 50 MG TAB.SR.24H (TOPROL XL) PO SCH (11:08)
--- NOTE | 2019-04-30 11:45 | NUR ---
Physician at bedside Dr. Iverson at patients bedside examining patient
--- NOTE | 2019-04-30 14:00 | NUR ---
Rn Rounds Patient in bed resting, respirations even and unlabored on room air, IV fluids infusing well, no acute distress noted at this time
[2019-04-30] MEDS: HYDROmorphone 1 MG INJ. 1 MG/ML AMPUL IVP PRN ×2 (15:43→22:43)
--- NOTE | 2019-04-30 15:45 | NUR ---
Pain management Patient states she is in pain, patient requesting PRN pain medications, educated patient on use and side effects of PRN Dilaudid, patient verbalized understanding, patient tolerated pain medication well
--- NOTE | 2019-04-30 17:36 | NUR ---
Educated patient Educated patient on use and purpose of incentive spirometer, patient refusing to return demonstration, will follow up with teaching
--- NOTE | 2019-04-30 18:40 | NUR ---
paged paged for Dr Iverson, dialed . s/w Jayce.
--- NOTE | 2019-04-30 19:00 | NUR ---
Spoke with Physician Spoke with Dr. Iverson and informed him of critical lab Ecoli, ESBL, MDRO of the urine, new orders received, verified with read back, informed wire charger, contact isolation precautions in place
--- NOTE | 2019-04-30 19:00 | NUR ---
OPENING NOTES Receive report from morning shift nurse LALO Rivas. Patient AOx1, confusion is noted. Patient IVF infusing well, patency noted. No signs of respiratory distress noted. HOB slightly elevated. Patient has leg abductor, attached and secured. Able to wiggle toes and move legs. Agrawal catheter attached and secured, draining by gravity. With left wrist restraints, no injury noted, able to move hands. Call light within reach. Safety precautions in place. Bed alarm on. Will continue to monitor patient.
--- NOTE | 2019-04-30 19:21 | NUR ---
Closing note Bedside SBAR report given to antique automobiles repairer RN, patient in bed resting, respirations even and unlabored on room air, Agrawal catheter draining to gravity, abductor pillow in place, bed in low and locked position with bed alarm on, call light in reach, endorsed care to antique automobiles repairer RN Addendum: 04/30/19 at 1923 by Rob Gross RN Endorsed to antique automobiles repairer RN to follow up with Dr. Iverson regarding order for Meropenem due to cross sensitivity to Penicillin allergy Addendum: 04/30/19 at 1938 by Rob Gross RN Paged Dr. Iverson regarding cross sensitivity of meropenem to penicillin, awaiting call back, endorsed to antique automobiles repairer RN
--- NOTE | 2019-04-30 19:30 | NUR ---
SPOKE WITH DR. DREAD BYRD made aware of patient's sensitivity to medication that MD ordered. MD verbalized that he will handle it tomorrow. No new order given at this time.
--- NOTE | 2019-04-30 20:54 | NUR ---
MED PASS Due medication given at this time. Patient tolerated well. No signs of respiratory distress and discomfort noted. Patient IVF infusing well. Patient Hip abductor in place and secured, patient educated on purpose and benefits of the hip abductor. Safety precautions in place. Will continue to monitor patient.
[2019-04-30] MEDS: FLUPHENAZINE 10 MG PO SCH (20:56)
[2019-04-30] MEDS: traZODone HCL 50 MG TABLET (DESYREL) PO SCH (20:57)
[2019-04-30] MEDS ORDERED: MEROPENEM 500 MG in NS 50 ML IV SCH (22:00)
--- NOTE | 2019-04-30 23:56 | NUR ---
Stat paged paged for Dr Iverson, . s/w Caitlin.
--- NOTE | 2019-05-01 00:07 | NUR ---
SPOKE WITH MD BYRD made aware of patient decrease blood pressure. MD gave an order. Patient is responsive but sleepy. No signs of respiratory distress. HR 65. O2 sat is 98%. Safety precautions in place. Will continue to monitor patient. Addendum: 05/01/19 at 0201 by Alyssa Perez RN BP 79/48. ORDERED 500ML NS BOLUS. NO SIGNS OF RESPIRATORY DISTRESS. PATIENT BED ON TRENDELENBURG POSITION. PATIENT RESPOND AND TALK WHEN WAKEN UP. WILL CONTINUE TO MONITOR PATIENT
[2019-05-01 00:08] VITALS: BP_SYST 97
[2019-05-01] MEDS ORDERED: NS 500 ML IV ONE ×2 (00:15→17:45)
[2019-05-01 02:00] VITALS: BP_SYST 91
--- NOTE | 2019-05-01 02:01 | NUR ---
RN ROUNDS Patient asleep at this time. No signs of respiratory distress and discomfort noted. BP 91/54, hr 66, 02 sat of 99% on Trendelenburg position. Breathing even and unlabored. Safety precautions in place. Bed alarm on. Call light within reach, Will continue to monitor patient.
[2019-05-01] MEDS: KCL 20 mEq in D5/0.45NS 1000mL 1,000 ML IV SCH ×2 (04:05→12:50)
--- NOTE | 2019-05-01 04:31 | NUR ---
RN ROUNDS Patient asleep at this time. No signs of respiratory distress and discomfort noted. BP 97/55, HR 62, 02 sat of 100% on Trendelenburg position. Breathing even and unlabored. Safety precautions in place. Bed alarm on. Will continue to monitor patient.
--- NOTE | 2019-05-01 07:00 | NUR ---
CLOSING NOTES Patient awake, responsive and cooperative at this time, no signs of respiratory distress and discomfort noted. Vital signs within normal limits. Breathing even and unlabored. Agrawal catheter attached and secured, draining by gravity. IVF infusing well, patency noted. Hip abductor attached and secured, able to wiggle toes and move legs. Safety precautions in place. Bed alarm on. Call light within reach. Bed locked and lowest position. All needs met throughout the shift. Will continue to monitor patient until endorse to oncoming shift nurse.
--- NOTE | 2019-05-01 07:35 | NUR ---
INITIAL NOTE PT RESTING, NO ACUTE DISTRESS NOTED, BREATHING EVEN AND UNLABORED. IVF INFUSING WELL. ISOLATION PRECAUTIONS IN PLACE. CALL LIGHT WITHIN REACH, BED IN LOW AND LOCKED POSITION WITH BED ALARM ON.
[2019-05-01 08:00] VITALS: BP_SYST 126
[2019-05-01] MEDS: FLUPHENAZINE HCL 2 MG PO SCH (09:00)
[2019-05-01] MEDS: LOSARTAN POTASSIUM 50 MG TABLET (COZAAR) PO SCH ×2 (09:00→21:00)
[2019-05-01] MEDS: FERROUS SULFATE 300 MG/5 ML UDC PO SCH ×2 (09:01→21:54)
[2019-05-01] MEDS: LITHIUM CARBONATE 300 MG TABLET.SA PO SCH ×2 (09:02→21:52)
[2019-05-01] MEDS: CLOPIDOGREL BISULFATE 75 MG TABLET PO SCH (09:02)
[2019-05-01] MEDS: clonazePAM 0.5 MG TABLET PO SCH ×2 (09:03→21:52)
[2019-05-01] MEDS: MULTIVITAMINS TAB 1 TABLET PO SCH (09:03)
[2019-05-01] MEDS: METOPROLOL SUCCINATE 50 MG TAB.SR.24H (TOPROL XL) PO SCH (09:03)
[2019-05-01] MEDS: ATORVASTATIN 10 MG TABLET PO SCH (09:03)
--- NOTE | 2019-05-01 09:35 | NUR ---
RN ROUNDS REPOSITIONED PT FOR COMFORT. PAIN CONTROLLED AT THIS TIME. PT REMAINS CONFUSED, BUT COOPERATIVE. RESTRAINTS OFF AT THIS TIME.
--- NOTE | 2019-05-01 11:19 | NUR ---
RN ROUNDS PT RESTING. NO ACUTE DISTRESS NOTED. BREATHING EVEN AND UNLABORED. PT REMAINS OFF RESTRAINTS.
--- NOTE | 2019-05-01 12:30 | NUR ---
Discharge Planning: D[facility] (f [phone] p [phone]) DCP to follow up. Addendum: 05/01/19 at 1520 by Tiara King DP [facility] (f [phone] p [phone]) Per Katia pt goes to Rm 125B she is aware of [facility]
[2019-05-01] MEDS: HYDROmorphone 1 MG INJ. 1 MG/ML AMPUL IVP PRN (12:52)
--- NOTE | 2019-05-01 13:20 | NUR ---
RN ROUNDS PT RESTING IN BED, NO ACUTE DISTRESS NOTED, BREATHING EVEN AND UNLABORED. WILL CONTINUE TO MONITOR.
[2019-05-01 13:34] VITALS: BP_SYST 95
--- NOTE | 2019-05-01 14:28 | NUR ---
Dietitian Recommendations * Recommend mechanical soft, cardiac diet w/ Ensure Enlive TID, Domenic BID (supplements provide 1140 kcal/day, 65 gm protein/day) MODESTO RAMIREZ Please refer to Nutrition Assessment for details. Addendum: 05/01/19 at [address] Amended: Links added.
--- NOTE | 2019-05-01 14:34 | NUR ---
RN ROUNDS/DR. CANADA PT RESTING IN BED, NO ACUTE DISTRESS NOTED. SPOKE WITH MD AT NURSES STATION. INFORMED MD ABOUT PAIN MEDICATIONS, PT IS NOT ON ANTIBIOTICS DUE TO MULTIPLE ALLERGIES, IV FLUID RATE IS AT 125, BP IS STABLE. NEW ORDERS TO REDUCE IV FLUID RATE DOWN TO 75. VERIFIED WITH READ BACK.
[2019-05-01] MEDS ORDERED: HYDROcodone/ACETAMIN 5-325 MG TAB (NORCO/ VICODIN) PO PRN (14:45)
--- NOTE | 2019-05-01 15:25 | NUR ---
DR. CANADA INFORMED THAT PT IS ALLERGIC TO PENICILLIN (MEROPENEM). NEW ORDERS GIVEN TO START PT ON GENTAMICIN, DOSE PER PHARMACY, VERIFIED WITH READ BACK.
--- NOTE | 2019-05-01 16:30 | NUR ---
RN ROUNDS PT AWAKE, REPOSITIONED FOR COMFORT, PT DENIES ANY PAIN OR DISCOMFORT AT THIS TIME. WILL CONTINUE TO MONITOR.
[2019-05-01] MEDS ORDERED: GENTAMICIN SULFATE 400 MG in NS 100 ML IV SCH (17:00)
[2019-05-01 17:34] LABS: ALBUMIN 2.3 g/dL (3.4-4.8); CALCIUM 9.1 mg/dL (8.4-11.0); CREATININE 0.48 mg/dL (0.55-1.30); POTASSIUM 3.9 mmol/L (3.5-5.1); TOTAL BILIRUBIN 0.3 mg/dL (0.0-1.0)
--- NOTE | 2019-05-01 17:35 | NUR ---
PAGED DR. CANADA SPOKE WITH MD, INFORMED MD PT BLOOD PRESSURE TRENDING DOWN 96/55, 85/52. NEW ORDERS FOR 500CC BOLUS AND CHANGE FLUID RATE TO 100CC, VERIFIED WITH READ BACK.
--- NOTE | 2019-05-01 18:17 | NUR ---
CLOSING NOTE PT AWAKE, DENIES ANY DIZZINESS, IVF INFUSING WELL. ALL NEEDS MET THROUGHOUT SHIFT. NO RESTRAINTS NEEDED THROUGHOUT SHIFT. MCCOY DRAINING TO GRAVITY. ISOLATION PRECAUTIONS IN PLACE. CALL LIGHT WITHIN REACH, BED IN LOW AND LOCKED POSITION WITH BED ALARM ON. WILL CONTINUE TO MONITOR UNTIL PT CARE IS ENDORSED TO RAIL WALKER RN.
--- NOTE | 2019-05-01 19:30 | NUR ---
OPENING NOTES Patient is resting, no signs of acute respiratory distress observed. IVF running, dressings c/d/i. Call light within reach, bed alarm on, bed at lowest position. Will continue to monitor.
[2019-05-01] MEDS: FLUPHENAZINE 10 MG PO SCH (21:00)
[2019-05-01] MEDS: traZODone HCL 50 MG TABLET (DESYREL) PO SCH (21:53)
[2019-05-02 00:13] VITALS: BP_SYST 122
[2019-05-02] MEDS: KCL 20 mEq in D5/0.45NS 1000mL 1,000 ML IV SCH (02:53)
--- NOTE | 2019-05-02 08:37 | NUR ---
CLOSING NOTES Patient is resting, no signs of acute respiratory distress observed. IVF running, dressings c/d/i. Call light within reach, bed alarm on, bed at lowest position. All needs met throughout shift. Will endorse care to oncoming shift.
[2019-05-02] MEDS: ATORVASTATIN 10 MG TABLET PO SCH (09:00)
[2019-05-02] MEDS: MULTIVITAMINS TAB 1 TABLET PO SCH (09:00)
[2019-05-02] MEDS: LOSARTAN POTASSIUM 50 MG TABLET (COZAAR) PO SCH (09:00)
[2019-05-02] MEDS: METOPROLOL SUCCINATE 50 MG TAB.SR.24H (TOPROL XL) PO SCH (09:00)
[2019-05-02] MEDS: FERROUS SULFATE 300 MG/5 ML UDC PO SCH (09:00)
[2019-05-02] MEDS: clonazePAM 0.5 MG TABLET PO SCH (09:00)
[2019-05-02] MEDS: CLOPIDOGREL BISULFATE 75 MG TABLET PO SCH (09:00)
[2019-05-02] MEDS: LITHIUM CARBONATE 300 MG TABLET.SA PO SCH (09:00)
[2019-05-02 11:22] VITALS: BP_SYST 103
--- NOTE | 2019-05-02 11:46 | NUR ---
Discharge Planning [facility] (f [phone] p [phone]) Per Katia pt goes to Rm 125B she is aware of [facility] [phone] warehouse order picker at 13:30 Packet placed in nurses' station CHON Arriaga notified patient's mother Holly MAY aware
[2019-05-02 12:57] VITALS: BP_SYST 113
--- NOTE | 2019-05-02 15:33 | NUR ---
a/confused,VSS, ASSESSMENT DONE, IV INFUSING IN PROGRESS.H/L REMOVED, STRAIGHTEDGE MAN COME TO PICK PATIENT [facility] AT 13;30, SISTER SHERRY LOVINGRONDAVERA NOTIFED PRIOR DISCHARGE TO [facility], CALLED NURSE JULY AND GIVEN REPORT PRIOR DISCHARGE.
== END 2019-05-02 13:50 | DRG 560 ==
LOC: SED 20:24 → SMU 22:28
PROVIDERS: ADMIT Family Medicine; ATTEND Family Medicine
PROC: 0SWBXJZ Revision of Synthetic Substitute in Left Hip Joint, External Approach (ICD-10-PCS; principal; 2019-04-27 15:00)
PROC: 0SWBXJZ Revision of Synthetic Substitute in Left Hip Joint, External Approach (ICD-10-PCS; 2019-04-30)
DX: T84.021A Dislocation of internal left hip prosthesis, initial encounter (principal); E44.1 Mild protein-calorie malnutrition; F31.9 Bipolar disorder, unspecified; I10 Essential (primary) hypertension; J44.9 Chronic obstructive pulmonary disease, unspecified; M81.0 Age-related osteoporosis without current pathological fracture; M19.90 Unspecified osteoarthritis, unspecified site; F17.210 Nicotine dependence, cigarettes, uncomplicated; E78.5 Hyperlipidemia, unspecified; K44.9 Diaphragmatic hernia without obstruction or gangrene; Y79.8 Miscellaneous orthopedic devices associated with adverse incidents, not elsewhere classified; Z79.899 Other long term (current) drug therapy; Z88.0 Allergy status to penicillin; Z88.8 Allergy status to other drugs, medicaments and biological substances; Z87.81 Personal history of (healed) traumatic fracture; Y92.89 Other specified places as the place of occurrence of the external cause; Z91.19 Patient's noncompliance with other medical treatment and regimen
CPT/HCPCS: 36415; 71045; 73502; 76000; 80048; 80053; 81000-TC; 83735-TC; 85025; 85610-TC; 85730-TC; 86870; 86886; 86900; 86901; 87081; 87086; 87186-TC; 93005; 99285; C1751; J0330; J1170; J1580; J2175; J2270; J2704; J7040; J7120

== ENCOUNTER 2019-05-14 15:06 | Inpatient (IN) | payer OTHER, MEDICAID ==
[~2019-05-14] VITALS: Ht 172.7 cm; Wt 59.0 kg
[~2019-05-14 15:06] MED LIST changes: -LR 1,000 ML IV.SOLN IV ONE; -PROPOFOL 200MG/ 20ML VIAL (DIPRIVAN) IV ONE; -SEVOFLURANE 15 MIN GAS INH ONE; -SUCCINYLCHOLINE CHLORIDE 20 MG/ML(QUELICIN) IVP ONE
--- NOTE | 2019-05-14 15:10 | NUR ---
Patient to ER bed 3 to gown for evaluation. Side rails up.
--- NOTE | 2019-05-14 15:20 | NUR ---
Pt BIB BLS from [facility] per Dr. Iverson for a confirmed L hip dislocation from an XR done this morning. Pt denies pain at this time. Skin pink dry and warm, breathing even and unlabored. No other injuries/complaints per pt/noted. Will continue to monitor.
[2019-05-14 15:25] VITALS: BP_SYST 90
--- NOTE | 2019-05-14 15:34 | NUR ---
ER at bedside examining patient.
[2019-05-14] MEDS ORDERED: NACL 0.9% 1,000 ML IV ONE ×2 (15:35→19:15)
--- NOTE | 2019-05-14 15:50 | NUR ---
Medication reconciliation completed with information provided by [facility] . Any prior medication reconciliation on file was reviewed and corrected.
[2019-05-14 16:26] LABS: BILIRUBIN,URINE NEGATIVE (NEGATIVE); BLOOD, URINE NEGATIVE (NEGATIVE); CLARITY/URINE CLOUDY (CLEAR); COLOR,URINE YELLOW (YELLOW); GLUCOSE,URINE NEGATIVE (NEGATIVE); KETONES,URINE NEGATIVE (NEGATIVE); LEUKOCYTE ESTERASE ,URINE 2+ (NEGATIVE); NITRITE, URINE POSITIVE (NEGATIVE); PROTEIN URINE NEGATIVE (NEGATIVE)
[2019-05-14 16:36] LABS: BASOPHILS % (AUTO) 0.2 % (0.0-2.0); EOSINOPHILS # (AUTO) 0.1 K/uL (0.0-0.4); EOSINOPHILS % (AUTO) 1.8 % (0.0-4.0); HEMOGLOBIN 10.3 g/dL (12.0-16.0); LYMPHOCYTES # (AUTO) 0.7 K/uL (1.0-5.5); LYMPHOCYTES % (AUTO) 9.3 % (20.5-51.5); MEAN CORPUSCULAR HEMOGLOBIN 32 pg (27-31); MEAN CORPUSCULAR HGB CONC 33 % (32-36); MEAN CORPUSCULAR VOLUME 96 fL (79.0-98.0); MONOCYTES # (AUTO) 0.7 K/uL (0.0-1.0); MONOCYTES % (AUTO) 8.6 % (1.7-9.3); NEUTROPHILS # (AUTO) 6.3 K/uL (1.8-7.7); NEUTROPHILS % (AUTO) 80.1 % (40.0-70.0); PLATELET COUNT (AUTO) 283 K/uL (130-430); RED BLOOD CELL COUNT(AUTO) 3.22 MIL/uL (4.2-6.2); RED CELL DISTRIBUTION WIDTH 15.8 % (9.0-15.0); WHITE BLOOD COUNT (AUTO) 7.9 K/uL (4.8-10.8)
[2019-05-14 16:39] LABS: CALCIUM 10.4 mg/dL (8.4-11.0); CREATININE 0.85 mg/dL (0.55-1.30); POTASSIUM 4.4 mmol/L (3.5-5.1)
[2019-05-14 16:44] LABS: ALBUMIN 2.8 g/dL (3.4-4.8); TOTAL BILIRUBIN 0.5 mg/dL (0.0-1.0)
[2019-05-14 16:44] LABS: BACTERIA,URINE MANY /HPF (None Seen); HYALINE CASTS, URINE 0-10 /LPF (None Seen); RBC,URINE 0-3 /HPF (0-3); URINE AMORPHOUS URATE 1+ /HPF (None Seen); WBC,URINE 20-50 /HPF (0-3)
[2019-05-14] MEDS ORDERED: cefTRIAXone 1 GM in D5W 50 ML IV ONE (17:15)
[2019-05-14] MEDS ORDERED: cefTRIAXone 1 GM VIAL ONE (17:30)
--- NOTE | 2019-05-14 17:43 | NUR ---
MEdication administered. PT tolerated well. No adverse reactions noted.
--- NOTE | 2019-05-14 18:06 | NUR ---
Pt crying "Why are you doing this to me?" Pt alone in room, no procedures being done while pt crying. Pt re-oriented to ED and placed to position of comfort. Pt admitted to telemetry, awaiting room number per MST. Will continue to monitor.
--- NOTE | 2019-05-14 18:53 | NUR ---
Pt BP 85/45. Dr. Lawrence notified. Verbal order of 1 L NS ordered. Pt positioned in trendelenberg.
[2019-05-14] MEDS ORDERED: ALBUTEROL SULFATE 0.083% 2.5 MG/3 ML VIAL.NEB INH PRN (19:45)
--- NOTE | 2019-05-14 19:59 | NUR ---
Patient will be admitted to care of Dr. Iverson. Admitted to MST unit. Will go to room 105B. Belongings list completed. Complete and up to date summary report printed. SBAR report to be given at bedside with opportunity for questions.
--- NOTE | 2019-05-14 20:19 | NUR ---
ADMISSION NOTE Received patient from ER via gurney. Patient admitted with diagnosis of Left Hip Dislocation. Patient is awake, confused. Patient oriented to hospital room, call light, toileting, pain management and safety-teach back done. Patient informed that LALO García will be primary nurse and that their room number is 105A. Personal belongings checked and Belongings List documented. Call light within reach.
[2019-05-14 20:27] VITALS: BP_SYST 93
--- NOTE | 2019-05-14 20:30 | NUR ---
pt.received via the er-dpet.pt.presents lt.leg subluxation;dislocation.no other cutaneus issue present.pt.loc;confused. affect;anxious.abductor pillow in place.general status stable.respiratory status stable;unlabored.pt.repositioned.call light/ telephone placed w/in reach of the pt. Addendum: 05/15/19 at 0336 by Ricky Singer RN pt.presents john cath intact;patent;urine content present.john strap lock present.
[2019-05-14] MEDS: LOSARTAN POTASSIUM 50 MG TABLET (COZAAR) PO SCH (21:00)
--- NOTE | 2019-05-14 21:00 | NUR ---
2100p medication administered.pt capable to ingest medications;po whole w/out difficulty.
--- NOTE | 2019-05-14 22:00 | NUR ---
pt.assessed.pt.assessed for cleanliness.pt.repositioned.iv access to be re-established.pt.had removed the iv access.family telephoned apprised me of extended hx of the pt.to f/u w .general status stable.respiratory status stable;unlabored.call light/ telephone placed w/in reach of the pt.john cath intact;patent;urine content present.
[2019-05-14] MEDS: LITHIUM CARBONATE 300 MG TABLET.SA PO SCH (22:10)
[2019-05-14] MEDS: FERROUS SULFATE 300 MG/5 ML UDC PO SCH (22:11)
[2019-05-14] MEDS ORDERED: CEFEPIME 1 GM/VIAL (MAXIPIME) ONE (22:47)
[2019-05-14] MEDS ORDERED: KCL 20 mEq in D5/0.45NS 1000mL 1,000 ML IV ONE (22:48)
--- NOTE | 2019-05-14 23:00 | NUR ---
retuned the page.i apprised .irish of the pt's family's requests;pain,o2 therapy,;ortho.nicotine patch. order;apum;norco;5/325mg po q-6hrs,o2 therapy:2l/min via nasal cannulae.xanax;0.25mg po;anxiety tid/prn, no nicotine patch. consult ortho; had ordered . is not available @this time.
[2019-05-15] VITALS (7 sets, daily range): BP systolic 95–121
--- NOTE | 2019-05-15 | NUR ---
pt.assessed.v/s assessed;values w/in normal limits.pt.assessed for cleanliness.pt repositioned.john cath intact,patent;urine content present, i have re-established the iv access;i have initiated the iv fluids administration,the maxipime abx;ivpb administration.i have placed o2 therapy via nasal cannulae per the pt's sister's requests.call light/telephone placed w/in reach of the pt.
[2019-05-15] MEDS: CEFEPIME 1 GM in D5W 50 ML IV SCH ×3 (00:24→21:22)
[2019-05-15] MEDS: KCL 20 mEq in D5/0.45NS 1000mL 1,000 ML IV SCH ×3 (00:25→12:37)
[2019-05-15] MEDS ORDERED: HYDROcodone/ACETAMIN 10-325 MG TAB PO PRN (00:30)
[2019-05-15] MEDS: ALPRAZolam 0.25 MG TABLET PO PRN ×2 (01:20→12:38)
[2019-05-15] MEDS: HYDROcodone/ACETAMIN 5-325 MG TAB (NORCO/ VICODIN) PO PRN ×6 (01:20→18:24)
--- NOTE | 2019-05-15 01:30 | NUR ---
i have administered medication;pain;norco;5/325mg po 1 tab;to f/u re assessment of the medication effcacy per pain mgx protocol. i have administered xanax;0.25mg po.
--- NOTE | 2019-05-15 02:00 | NUR ---
pt.assessed.pt.assessed for cleanliness.pt repositioned.iv access intact;patent;iv fluids infusing.john cath intact;patent urine content present. 02-sat%=98%.call light/telephone placed w/in reach of the pt.
--- NOTE | 2019-05-15 04:00 | NUR ---
pt assessed.pt.assessed for cleanliness.pt.repositioned.iv access intact;patent.john cath intact;patent:urine content present. o2-sat5=96%.general status stable.respiratory status stable;unlabored.call light/telephone placed w/in reach of the pt.
--- NOTE | 2019-05-15 05:24 | NUR ---
CONSULTATION PAGED/CALLED Reason for Consultation: HIP DISPLACEMENT Person Who was Notified: MIIN Consulting Physician: IRMA BARRAZA IS FORMING AND ASSEMBLING SUPERVISOR Fourth Mate Specialty: Ordering Physician: DREAD
--- NOTE | 2019-05-15 06:00 | NUR ---
pt.assessed.pt.assessed for cleanliness.pt.repositioned.iv access intact;patent iv fluids infusing.john cath intact;patent urine content present.abductor pillow in plce.general status stable.respiratory status stable:2-sat%=96%.call light/telephone placed w/in reach of the pt.
[2019-05-15] MEDS: FERROUS SULFATE 300 MG/5 ML UDC PO SCH ×2 (08:52→21:31)
[2019-05-15] MEDS: CLOPIDOGREL BISULFATE 75 MG TABLET PO SCH (08:52)
[2019-05-15] MEDS: ENOXAPARIN SODIUM 40 MG/0.4 ML SYRINGE SUBCUT SCH (08:52)
[2019-05-15] MEDS: MULTIVITAMINS TAB 1 TABLET PO SCH (08:52)
[2019-05-15] MEDS: ATORVASTATIN 10 MG TABLET PO SCH (08:53)
[2019-05-15] MEDS: LOSARTAN POTASSIUM 50 MG TABLET (COZAAR) PO SCH ×2 (08:55→21:31)
[2019-05-15] MEDS: LITHIUM CARBONATE 300 MG TABLET.SA PO SCH ×2 (08:56→21:32)
[2019-05-15] MEDS ORDERED: NON-FORMULARY MEDICATION (Cranberry Fruit Concentrate (Cranberry) 450 MG) PO SCH (09:00)
--- NOTE | 2019-05-15 10:26 | NUR ---
Nutrition Update Robb Scale 15 noted. Pt admitted for L hip dislocation. Diet: mechanical soft BMI: 19.9 kg/m2 RD to follow per nutrition care standards.
--- NOTE | 2019-05-15 11:44 | NUR ---
Wound Evaluation: Wound Consult ordered for Low Robb Score. Patient evaluated for a low Robb score of a 15. Patient was awake, alert, confused, and received in a [place] Bed with an IsoFlex SCOTTY mattress. Patient needs assist to turn in bed secondary to left hip fracture and pain. Skin assessment: 1. Sacral area: Scar tissue with dry flaky skin, present on admission. Recommend: Cleanse involved area with mild soap and water. Pat dry. Apply moisture barrier cream to involved area. Site care 4 times a day and when necessary for soiling. Recommend: Reposition patient side to side only every 2 hours with pillow wedge pelvic tilt. Elevate, off-load and float bilateral heels with towel rolls (secondary to abductor pillow in place)at all times. Offload pressure areas with pillows for pressure re-distribution. Perform skin care and monitor skin integrity Q shift. Use moisture barrier cream on moisture susceptible areas QID and PRN for soiling. Initiate low air-loss therapy.
--- NOTE | 2019-05-15 12:15 | NUR ---
DR BARRAZA CAME TO SEE PATIENT FOR SURGERY DR BARRAZA WILL DO SURGERY TO PATIENT, PT IS CONFUSED. MD SPOKE TO HER MOTHER ALEC ABOUT HAVING SURGERY AT 5PM, EXPLAINED THE PROCEDURE TO BE DONE TO PATIENT, SISTER ERIC MADE AWARE ALSO AND SPOKE TO THE SURGEON. MOTHER AGREED AND CONSENTED THE SURGERY VIA PHONE. DR BARRAZA IS AWARE THAT PATIENT TOOK THE LOVENOX AND PLAVIX THIS AM.
[2019-05-15] MEDS ORDERED: MORPHINE SULFATE 10 MG/ML VIAL IM PRN (12:30)
[2019-05-15 13:22] LABS: INR 1.2 (0.8-1.2); PROTHROMBIN TIME 11.7 SECS (9.5-12.5)
[2019-05-15] MEDS ORDERED: LR 1,000 ML IV SCH (17:01)
[2019-05-15] MEDS ORDERED: ONDANSETRON HCL 4 MG/2 ML VIAL IVP PRN (17:15)
--- NOTE | 2019-05-15 17:20 | NUR ---
PATIENT TRANSFERRED VIA BED TO SURGERY. VSS NO ACUTE PAIN , OR RESP, OR CARDIAC DISTRESS.
[2019-05-15] MEDS ORDERED: SEVOFLURANE 15 MIN GAS INH ONE (17:40)
[2019-05-15] MEDS ORDERED: PROPOFOL 200MG/ 20ML VIAL (DIPRIVAN) IV ONE (17:40)
[2019-05-15] MEDS ORDERED: LR 1,000 ML IV.SOLN IV ONE (17:40)
[2019-05-15] MEDS ORDERED: ROCURONIUM BROMIDE 10 MG/ML (ZEMURON) ONE (17:40)
[2019-05-15] MEDS ORDERED: MEPERIDINE HCL/PF 25 MG/ML DISP.SYRIN IVP PRN (17:45)
[2019-05-15] MEDS ORDERED: MEPERIDINE HCL/PF 25 MG/ML DISP.SYRIN ONE (18:01)
--- NOTE | 2019-05-15 20:00 | NUR ---
recieved report from day nurse @ start of shift, pt. alert to name only with confusion, respirations even and unlabored, room air,left hand with d5 1/2 ns infusing @ 75 ml/hr, right hand s/l patent and intact, turned and repositioned q 2 hrs , john cathter draining clear yellow urine, sr';s up x's 3, call light within reach,, abductor pillow placed between knees, patient trying to remove pillow from knees, educated on reason it was important for her to keep pillow in place, , will continue to monitor for any s/s of distress.
[2019-05-16 01:01] VITALS: BP_SYST 120
[2019-05-16 04:00] VITALS: BP_SYST 122
--- NOTE | 2019-05-16 06:00 | NUR ---
patient restless off and on during the shift, incontinent of bowels, kept clean and dry,will call out incoherently during the shift for no reason apparent to bid writer, will continue to monitor closely
[2019-05-16 08:16] VITALS: BP_SYST 125
--- NOTE | 2019-05-16 08:20 | NUR ---
Am rounds: Patient is awake, having breakfast. Denies pain. On contact isolation for MRSA of nares. IV fluids of D51/2NS + KLC 20 meq at 75 cc/hr .Agrawal catheter with yellow urine output to a Bedside drainage bag. On low airloss mattress. Call light within reach. 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
[2019-05-16] MEDS: KCL 20 mEq in D5/0.45NS 1000mL 1,000 ML IV SCH ×2 (09:25→23:39)
[2019-05-16] MEDS: FERROUS SULFATE 300 MG/5 ML UDC PO SCH ×2 (09:25→20:26)
[2019-05-16] MEDS: CLOPIDOGREL BISULFATE 75 MG TABLET PO SCH (09:25)
[2019-05-16] MEDS: ENOXAPARIN SODIUM 40 MG/0.4 ML SYRINGE SUBCUT SCH (09:25)
[2019-05-16] MEDS: CEFEPIME 1 GM in D5W 50 ML IV SCH ×2 (09:26→20:26)
[2019-05-16] MEDS: ATORVASTATIN 10 MG TABLET PO SCH (09:26)
[2019-05-16] MEDS: MULTIVITAMINS TAB 1 TABLET PO SCH (09:26)
[2019-05-16] MEDS: LOSARTAN POTASSIUM 50 MG TABLET (COZAAR) PO SCH ×2 (09:27→20:26)
[2019-05-16] MEDS: LITHIUM CARBONATE 300 MG TABLET.SA PO SCH ×2 (09:34→20:27)
[2019-05-16 11:07] VITALS: BP_SYST 108
--- NOTE | 2019-05-16 11:30 | NUR ---
Rounds: Patient is calm. No yelling nor screaming at this time.
[2019-05-16 15:40] VITALS: BP_SYST 110
--- NOTE | 2019-05-16 15:50 | NUR ---
Social Service Note: SENIOR MEDICAL TRANSCRIPTIONIST received call from pt's mother, Joanna ([phone]); Joanna states that pt had a "knee brace" put on during one of her admissions and has since lost the brace. SENIOR MEDICAL TRANSCRIPTIONIST reviewed the previous charts and found a nursing order from Dr. Conner from a previous admission. SENIOR MEDICAL TRANSCRIPTIONIST gave pt's nurse a copy of the old order and asked pt's nurse to contact physician to see if they wanted to continue the "knee brace". SENIOR MEDICAL TRANSCRIPTIONIST will follow up as needed.
--- NOTE | 2019-05-16 15:59 | NUR ---
IV start IV is infiltrated. Started gauge 22 on the left forearm, secured with tegaderm and tape.
--- NOTE | 2019-05-16 16:03 | NUR ---
Dietitian Recommendations * Continue mechanical soft diet * Encourage increase PO intakes * Pt declined Ensure Enlive ONS LP, RD Please refer to Nutrition Assessment for details. Addendum: 05/16/19 at [address] Amended: Links added.
--- NOTE | 2019-05-16 16:43 | NUR ---
PT eval: Seen by PT. Was able to get up patient and walked inside the room. Patient tolerated well.
--- NOTE | 2019-05-16 19:05 | NUR ---
OPENING NOTES Bedside report received from dayshift nurse. Patient received lying in bed, awake, confused, no s/s of acute distress noted. Patient denies pain at this time. Breathing is even and unlabored. IVF infusing well, IV site patent, no signs of infiltration or infection noted. Agrawal attached, secured and draining by gravity. Call light with patient. Bed alarm on. Bed is locked and at lowest position. Will continue to monitor.
[2019-05-16 20:00] VITALS: BP_SYST 118
--- NOTE | 2019-05-16 21:00 | NUR ---
ROUNDS Patient in bed, eyes closed, appears to be asleep. No signs of discomfort noted. Chest rise and fall even bilaterally. IVF infusing well. Agrawal attached, secured, and draining by gravity. Call light with patient. Bed alarm on. Will continue to monitor.
--- NOTE | 2019-05-16 23:00 | NUR ---
ROUNDS Patient in bed sleeping. No s/s of acute distress noted. Breathing even and unlabored. IVF infusing well. Call light with patient. Bed alarm on. Will continue to monitor.
[2019-05-17] VITALS: BP_SYST 122
--- NOTE | 2019-05-17 01:00 | NUR ---
ROUNDS Patient in bed sleeping. No sign of discomfort noted. Chest rise and fall even bilaterally. All needs met. Bed alarm on. Will continue to monitor.
--- NOTE | 2019-05-17 03:00 | NUR ---
ROUNDS Patient in bed, eyes closed, appears to be asleep. No s/s of acute distress. Breathing even and unlabored. Call light with patient. Bed alarm on. Will continue to monitor.
--- NOTE | 2019-05-17 05:00 | NUR ---
ROUNDS Patient in bed, asleep. No signs of discomfort noted. Chest rise and fall even bilaterally. IVF infusing well. Agrawal attached, secured, and draining by gravity. Call light with patient. Bed alarm on. Will continue to monitor.
--- NOTE | 2019-05-17 06:25 | NUR ---
CLOSING NOTES Patient in bed, asleep at this time. No s/s of acute distress noted. Breathing is even and unlabored. HOB raised. IVF infusing well. Agrawal attached, secured, and draining by gravity. Hip abductor and knee immobilizer attached. All needs met throughout shift. Fall, safety, and isolation precautions maintained throughout shift. Will continue to monitor until patient care is endorsed to oncoming dayshift nurse.
--- NOTE | 2019-05-17 07:34 | NUR ---
Dislocation. Patient is awake, confused. Patient oriented to hospital room, call light, toileting, pain management, hip abductor and safety-teach back done. Call light within reach. Bed locked at the lowest position with alarm on, will continue to monitor.
[2019-05-17] MEDS: CLOPIDOGREL BISULFATE 75 MG TABLET PO SCH (08:51)
[2019-05-17] MEDS: ATORVASTATIN 10 MG TABLET PO SCH (08:51)
[2019-05-17] MEDS: FERROUS SULFATE 300 MG/5 ML UDC PO SCH ×2 (08:52→20:52)
[2019-05-17] MEDS: LITHIUM CARBONATE 300 MG TABLET.SA PO SCH ×2 (08:52→20:51)
[2019-05-17] MEDS: MULTIVITAMINS TAB 1 TABLET PO SCH (08:52)
[2019-05-17] MEDS: ENOXAPARIN SODIUM 40 MG/0.4 ML SYRINGE SUBCUT SCH (08:53)
[2019-05-17] MEDS: CEFEPIME 1 GM in D5W 50 ML IV SCH ×2 (09:00→20:51)
[2019-05-17] MEDS: LOSARTAN POTASSIUM 50 MG TABLET (COZAAR) PO SCH ×2 (09:00→20:52)
--- NOTE | 2019-05-17 10:00 | NUR ---
PATIENT IS RECEIVING PT.
[2019-05-17] MEDS: HYDROcodone/ACETAMIN 5-325 MG TAB (NORCO/ VICODIN) PO PRN (11:06)
[2019-05-17 11:09] VITALS: BP_SYST 109
--- NOTE | 2019-05-17 12:10 | NUR ---
PATIENT IS EATING LUNCH WITH ASSISTANCE FROM FAMILY.
--- NOTE | 2019-05-17 13:00 | NUR ---
PATIENT HAS A RUN OF VTACH, WHICH QUICKLY REVERTS BACK TO SR. DR. DUVAL IS INFORMED. EKG IS ORDERED.
[2019-05-17] MEDS: KCL 20 mEq in D5/0.45NS 1000mL 1,000 ML IV SCH (14:01)
--- NOTE | 2019-05-17 14:30 | NUR ---
patient receives EKG.
[2019-05-17 15:36] VITALS: BP_SYST 148
--- NOTE | 2019-05-17 17:42 | NUR ---
PATIENT ATTEMPTING TO GET OUT OF BED. SHE IS PUT INTO A BEDPAN SHE STATES SHE "NEEDS TO GO TO RESTROOM".
--- NOTE | 2019-05-17 19:15 | NUR ---
OPENING NOTES Bedside report received lying in bed. Patient received lying in bed, awake, confused, no s/s of acute distress noted. Breathing is even and unlabored. IVF infusing well, IV site patent, no signs of infiltration, or infection noted. Agrawal attached, secured, and draining by gravity. Patient refuses to have hip abductor or knee immobilizer attached at this time, will continue to encourage throughout shift. Call light with patient. Bed alarm on. Will continue to monitor.
[2019-05-17 20:00] VITALS: BP_SYST 107
--- NOTE | 2019-05-17 21:00 | NUR ---
ROUNDS/CRYING Patient in bed, awake, crying at this time, confused. Patient denies pain. Breathing even and unlabored. HOB raised. IVF infusing well. IV site patent, no signs of infiltration or infection noted. Call light with patient. Bed alarm on. Will continue to monitor.
--- NOTE | 2019-05-17 23:00 | NUR ---
ROUNDS Patient in bed, sleeping at this time. No s/s of acute distress noted. Breathing even and unlabored. HOB raised. IVF infusing well. Call light with patient. Bed alarm on. Will continue to monitor.
[2019-05-18] VITALS (7 sets, daily range): BP systolic 108–133
--- NOTE | 2019-05-18 01:00 | NUR ---
ROUNDS Patient in bed asleep at this time. No signs of discomfort noted. Chest rise and fall even bilaterally. Call light with patient. Bed alarm on. Will continue to monitor.
[2019-05-18] MEDS: KCL 20 mEq in D5/0.45NS 1000mL 1,000 ML IV SCH ×2 (02:11→17:22)
--- NOTE | 2019-05-18 03:00 | NUR ---
ROUNDS Patient in bed sleeping. No s/s of acute distress noted. Breathing even and unlabored. IVF infusing well. Agrawal attached, secured, and draining by gravity. Call light with patient. Bed alarm on. Will continue to monitor.
--- NOTE | 2019-05-18 05:00 | NUR ---
ROUNDS Patient woke up, crying, asking for another blanket, provided by RN. Patient denies pain. IVF infusing. Agrawal attached, secured, and draining by gravity. Call light with patient. Bed alarm on. Will continue to monitor.
--- NOTE | 2019-05-18 06:36 | NUR ---
CLOSING NOTES Patient in bed, sleeping at this time. No s/s of acute distress noted. Breathing is even and unlabored. HOB raised. IVF infusing well. IV site patent, no signs of infiltration or infection noted. Agrawal attached, secured, and draining by gravity. All needs met throughout shift. Fall, safety, and isolation precautions maintained throughout shift. Will continue to monitor until patient care is endorsed to oncoming dayshift nurse.
--- NOTE | 2019-05-18 07:16 | NUR ---
Patient is awake, confused. Patient oriented to hospital room, call light, toileting, pain management, Refused hip abductor or knee brace despite explanation of benefits. Call light within reach. Bed locked at the lowest position with alarm on, will continue to monitor.
[2019-05-18 08:11] LABS: BASOPHILS # (AUTO) 0.1 K/uL (0.0-0.2); BASOPHILS % (AUTO) 0.8 % (0.0-2.0); EOSINOPHILS # (AUTO) 0.2 K/uL (0.0-0.4); EOSINOPHILS % (AUTO) 3.4 % (0.0-4.0); LYMPHOCYTES # (AUTO) 1.3 K/uL (1.0-5.5); LYMPHOCYTES % (AUTO) 19.5 % (20.5-51.5); MEAN CORPUSCULAR HEMOGLOBIN 31 pg (27-31); MEAN CORPUSCULAR HGB CONC 33 % (32-36); MEAN CORPUSCULAR VOLUME 94 fL (79.0-98.0); MONOCYTES # (AUTO) 0.5 K/uL (0.0-1.0); MONOCYTES % (AUTO) 7.5 % (1.7-9.3); NEUTROPHILS # (AUTO) 4.4 K/uL (1.8-7.7); NEUTROPHILS % (AUTO) 68.8 % (40.0-70.0); PLATELET COUNT (AUTO) 303 K/uL (130-430); RED BLOOD CELL COUNT(AUTO) 3.19 MIL/uL (4.2-6.2); RED CELL DISTRIBUTION WIDTH 16.1 % (9.0-15.0); WHITE BLOOD COUNT (AUTO) 6.4 K/uL (4.8-10.8)
[2019-05-18 08:28] LABS: CREATININE 0.42 mg/dL (0.55-1.30)
[2019-05-18] MEDS: ATORVASTATIN 10 MG TABLET PO SCH (08:33)
[2019-05-18] MEDS: FERROUS SULFATE 300 MG/5 ML UDC PO SCH ×2 (08:33→20:22)
[2019-05-18] MEDS: CLOPIDOGREL BISULFATE 75 MG TABLET PO SCH (08:34)
[2019-05-18] MEDS: CEFEPIME 1 GM in D5W 50 ML IV SCH ×2 (08:34→20:24)
[2019-05-18] MEDS: MULTIVITAMINS TAB 1 TABLET PO SCH (08:34)
[2019-05-18] MEDS: LITHIUM CARBONATE 300 MG TABLET.SA PO SCH ×2 (08:36→20:23)
[2019-05-18] MEDS: ENOXAPARIN SODIUM 40 MG/0.4 ML SYRINGE SUBCUT SCH (08:37)
[2019-05-18] MEDS: LOSARTAN POTASSIUM 50 MG TABLET (COZAAR) PO SCH ×2 (09:00→20:23)
--- NOTE | 2019-05-18 09:06 | NUR ---
Patient finishes breakfast. Tolerates without distress.
--- NOTE | 2019-05-18 11:40 | NUR ---
Patient is offered to put back knee brace and hip abductor, but she declines despite explanation from RN.
--- NOTE | 2019-05-18 12:30 | NUR ---
Patient is eating lunch. tolerated without distress.
[2019-05-18] MEDS: HYDROcodone/ACETAMIN 5-325 MG TAB (NORCO/ VICODIN) PO PRN (14:00)
--- NOTE | 2019-05-18 15:00 | NUR ---
Hip abductor and knee brace are put back on her left knee and hip. Will continue to monitor.
--- NOTE | 2019-05-18 18:00 | NUR ---
Patient is having dinner, tolerated without distress.
--- NOTE | 2019-05-18 19:15 | NUR ---
OPENING NOTES Late entry due to patient care. Patient received lying in bed, awake, watching TV, no s/s of acute distress. Patient denies pain. Breathing is even and unlabored. HOB raised. IVF infusing well. Agrawal attached, secured, and draining by gravity. Hib abductor and knee immobilizer attached. Call light with patient. Bed alarm on. Will continue to monitor.
--- NOTE | 2019-05-18 20:30 | NUR ---
REMOVED HIP ABDUCTOR & KNEE IMMOBILIZER Patient yelling, agitated, removed hip abductor and knee immobilizer at this time. Patient educated on its purpose, patient uncooperative and refuses to have it back on. Will continue to encourage throughout the shift. Call light with patient. Bed alarm on. Will continue to monitor.
--- NOTE | 2019-05-18 22:30 | NUR ---
ROUNDS Patient awake, no s/s of acute distress noted. Breathing even and unlabored. IVF infusing well. Agrawal attached, secured, and draining by gravity. All needs met. Call light with patient. Bed alarm on. Will continue to monitor.
[2019-05-18] MEDS: ALPRAZolam 0.25 MG TABLET PO PRN (23:48)
--- NOTE | 2019-05-18 23:48 | NUR ---
AGITATED/YELLING/CRYING Patient agitated, yelling and crying, she is looking for her mother and states," I don't want her to in surgery". Patient reoriented, and attempted to calm patient, but not effective. PRN medication administered at this time. Call light with patient. Bed alarm on. Will continue to monitor and reassess.
[2019-05-19 00:58] VITALS: BP_SYST 112
--- NOTE | 2019-05-19 02:00 | NUR ---
ROUNDS Patient in bed sleeping at this time. No s/s of acute distress noted. Breathing is even and unlabored. IVF infusing well. Agrawal attached, secured, and draining by gravity. Call light with patient. Bed alarm on. Will continue to monitor.
--- NOTE | 2019-05-19 04:00 | NUR ---
ROUNDS Patient in bed sleeping. No signs of discomfort noted. Chest rise and fall even bilaterally. IVF infusing well. Call light with patient. Bed alarm on. Will continue to monitor.
[2019-05-19] MEDS: KCL 20 mEq in D5/0.45NS 1000mL 1,000 ML IV SCH ×2 (05:15→09:05)
--- NOTE | 2019-05-19 06:43 | NUR ---
CLOSING NOTES Patient in bed, sleeping at this time. no s/s of acute distress noted. Breathing even and unlabored. IVF infusing well, IV site patent, no signs of infection or infiltration noted. Skin warm and dry to touch. Agrawal attached, secured, and draining by gravity. All needs met throughout shift. Fall and safety precautions maintained throughout shift. Will continue to monitor until patient care is endorsed to oncoming dayshift nurse.
--- NOTE | 2019-05-19 07:20 | NUR ---
AM ROUNDS: PATIENT SLEEPING DURING ROUNDS. ON CONTACT ISOLATION PRECAUTION RENDERED. CALL LIGHT WITH IN REACH. BED LOCKED AT LOWEST POSITION. BED ALARM ON.NOT IN ANY DISTRESS.CONTINUE TO MONITOR.
[2019-05-19 08:19] VITALS: BP_SYST 132
--- NOTE | 2019-05-19 09:00 | NUR ---
MED PASS: TOOK HER ORAL MEDS WELL. ASPIRATION PRECAUTION NOTED. NO ADVERSE REACTIONS.
[2019-05-19] MEDS: CEFEPIME 1 GM in D5W 50 ML IV SCH (09:06)
[2019-05-19] MEDS: FERROUS SULFATE 300 MG/5 ML UDC PO SCH ×2 (09:06→23:00)
[2019-05-19] MEDS: MULTIVITAMINS TAB 1 TABLET PO SCH (09:06)
[2019-05-19] MEDS: CLOPIDOGREL BISULFATE 75 MG TABLET PO SCH (09:06)
[2019-05-19] MEDS: LOSARTAN POTASSIUM 50 MG TABLET (COZAAR) PO SCH ×2 (09:07→23:00)
[2019-05-19] MEDS: LITHIUM CARBONATE 300 MG TABLET.SA PO SCH ×2 (09:07→23:00)
[2019-05-19] MEDS: ATORVASTATIN 10 MG TABLET PO SCH (09:07)
[2019-05-19] MEDS: ENOXAPARIN SODIUM 40 MG/0.4 ML SYRINGE SUBCUT SCH (09:11)
--- NOTE | 2019-05-19 12:00 | NUR ---
LUNCH: LUNCH TRAY SERVED. PATIENT EAT SLOWLY.
[2019-05-19 12:36] VITALS: BP_SYST 104
--- NOTE | 2019-05-19 13:33 | NUR ---
Nutrition F/U RD reviewed pt's current EMR including diet Hx, physician notes, nursing notes, pertinent labs/meds/procedures, care trends and care activity. Current Diet Order: Mechanical soft diet x 3 days Subjective information: Pt seen sleeping in bed at time of RD visit. +confused. POD #4 S/P Closed Reduction L Hip Dislocation. Last BM 05/18. From previous RD visit notes, pt denied any ONS. Current PO intake: Poor 37% average of 3 meals. Estimated Energy Expenditure (kcals/day) 7344-2272 kcal/day (30-35 kcal/kg CBW for surgical healing) Estimated Protein Required (g/day) 71-89 gm/day (1.2-1.5 gm/kg CBW for surgical healing) Estimated Fluid Required (l/day) 1.8-2 L/day (1 ml/kcal/day for maintenance) Problem/Etiology/Signs/Symptoms Inadequate nutritional intakes related to lack of appetite as evidenced by negligible PO intakes. (*ongoing) Expected Outcomes/Goals - Monitor appetite and PO intakes w/ goal of pt meeting 75% of estimated nutritional needs, labs trending WNL, normal GI function, and skin integrity/wt maintenance Dietitian Recommendations * Consider Megace to stimulate appetite. * Continue mechanical soft diet * Encourage increase PO intakes * Pt declined Ensure Enlive ONS Follow Up High Risk: F/U in 2-3days
--- NOTE | 2019-05-19 13:38 | NUR ---
Dietitian Recommendations * Consider Megace to stimulate appetite. * Continue mechanical soft diet * Encourage increase PO intakes * Pt declined Ensure Enlive ONS Please see nutrition f/u note [facility], RD
--- NOTE | 2019-05-19 14:07 | NUR ---
Discharge Planning: DCP faxed to [facility] (f [phone] p [phone]) per Lee Ann they will take patient back ,even after LTAC Addendum: 05/19/19 at 1548 by Tiara King DP Discharge Planning: DCP faxed to [facility] (f [phone] p [phone]) DCP to follow up
--- NOTE | 2019-05-19 14:30 | NUR ---
RN ROUNDS: FAMILY AT THE BEDSIDE. IV OUT.WILL TRY TO REINSERT LATER. CONTINUE TO MONITOR.
--- NOTE | 2019-05-19 16:32 | NUR ---
RN ROUNDS: NO ACUTE DISTRESS. CONTINUE TO MONITOR.
[2019-05-19 16:48] VITALS: BP_SYST 110
--- NOTE | 2019-05-19 18:35 | NUR ---
iv out: Patient hard stick.Tried 2x,not able to insert iv.Will endorsed to incoming night nurse,patient for iv insertion.Patient crying, does not want the abductor ,but abductor pillow stays on as ordered.
--- NOTE | 2019-05-19 18:37 | NUR ---
Closing notes: Patient stable. Bed locked at lowest position. Bed alarm on. Abductor pillow in between the legs. Agrawal in place. Continue to monitor.
[2019-05-19 20:00] VITALS: BP_SYST 141
--- NOTE | 2019-05-19 20:00 | NUR ---
ptreceived alert and disoriented , pt is incontinent of stool . vital sign stable . skin intact . pt abduction pillow on . will monitor pt through the night m
--- NOTE | 2019-05-19 20:00 | NUR ---
pt recieved alert and oriented x4 . pt coughing . have pna . coughing productively witish sputum , pt on antibiotic zithromax and recephin.will continue to monitor pt
[2019-05-20] VITALS (7 sets, daily range): BP systolic 110–135
--- NOTE | 2019-05-20 | NUR ---
v/s table , pt continue to be disoriiented . vital stable . with continue to monnitor pt during the night .
[2019-05-20] MEDS: CEFEPIME 1 GM in D5W 50 ML IV SCH ×2 (00:44→08:45)
--- NOTE | 2019-05-20 05:00 | NUR ---
am care given . pt had a new iv inserted . will continue to notitor pt .
--- NOTE | 2019-05-20 05:00 | NUR ---
a.m care given to pt . pt awake and talking to herself . will monitor pt comtinuosly
--- NOTE | 2019-05-20 07:30 | NUR ---
OPENING NOTES: RECEIVED PATIENT FROM AIRCRAFT MAINTENANCE SUPERVISOR NURSE. PATIENT IS AWAKE AND ALERT x1 LAYING DOWN IN BED. PATIENT IS TOLERATING OXYGEN AT ROOM AIR WITH NO SIGNS OF DISTRESS OR SHORTNESS OF BREATH NOTED. IV SITE IS PATENT WITH NO SIGNS OF INFILTRATION NOTED. MCCOY CATHETER INTACT AND DRAINING BY GRAVITY. PATIENT IN STABLE CONDITION. SAFETY, FALL, ASPIRATION AND CONTACT PRECAUTIONS ARE IN PLACE. BED LOCKED IN LOWEST POSITION WITH CALL LIGHT IN REACH. WILL CONTINUE TO MONITOR PATIENT FOR ANY CHANGES.
[2019-05-20] MEDS: KCL 20 mEq in D5/0.45NS 1000mL 1,000 ML IV SCH (08:44)
[2019-05-20] MEDS: FERROUS SULFATE 300 MG/5 ML UDC PO SCH (08:45)
[2019-05-20] MEDS: CLOPIDOGREL BISULFATE 75 MG TABLET PO SCH (08:45)
[2019-05-20] MEDS: ATORVASTATIN 10 MG TABLET PO SCH (08:45)
[2019-05-20] MEDS: MULTIVITAMINS TAB 1 TABLET PO SCH (08:45)
[2019-05-20] MEDS: LITHIUM CARBONATE 300 MG TABLET.SA PO SCH (08:46)
[2019-05-20] MEDS: LOSARTAN POTASSIUM 50 MG TABLET (COZAAR) PO SCH (08:46)
[2019-05-20] MEDS: ENOXAPARIN SODIUM 40 MG/0.4 ML SYRINGE SUBCUT SCH (08:47)
--- NOTE | 2019-05-20 10:10 | NUR ---
RN ROUNDS: PATIENT IS AWAKE AND ALERT x1 SITTING UP IN BED. PATIENT DENIES ANY PAIN AT THE MOMENT. NO SIGNS OF DISTRESS OR SHORTNESS OF BREATH NOTED. PATIENT IN STABLE CONDITION. WILL CONTINUE TO MONITOR PATIENT FOR ANY CHANGES.
--- NOTE | 2019-05-20 11:08 | NUR ---
PHYSICAL THERAPY CO-SIGN The Physical Therapy Progress Notes documented by [employer] have been reviewed. Reviewed/Co-Signed by: Felipe Ron PT Documentation Done by: NIRMAL KERR PTA Addendum: 05/20/19 at 1110 by Felipe Ron PT Amended: Links added.
--- NOTE | 2019-05-20 11:09 | NUR ---
PHYSICAL THERAPY CO-SIGN The Physical Therapy Progress Notes documented by Football Coach have been reviewed. Reviewed/Co-Signed by: Felipe Ron PT Documentation Done by: REYES TURK PTA Addendum: 05/20/19 at 1110 by Felipe Ron PT Amended: Links added.
--- NOTE | 2019-05-20 12:10 | NUR ---
RN ROUNDS: PATIENT IS ASLEEP LAYING DOWN IN BED. NO SIGNS OF DISTRESS OR SHORTNESS OF BREATH NOTED. PATIENT IN STABLE CONDITION. WILL CONTINUE TO MONITOR PATIENT FOR ANY CHANGES.
--- NOTE | 2019-05-20 13:15 | NUR ---
Discharge Planning: DANIEL spoke to Rebeca at [facility] (f [phone] p [phone]) clinically accepted, need to find a bed. DCP will follow up Addendum: 05/20/19 at 1640 by Tiara King DP [facility] (p [phone]) called from [place] patient will go to [facility] [phone], transportation arranged with [facility] ([phone]) 7:30pm P/U. Patient packet taken, DCP made patient made mom aware at #[phone].
--- NOTE | 2019-05-20 16:20 | NUR ---
CALLED: SPOKE WITH DR. CANADA AND HE STATED TO KEEP THE MCCOY IN AND SEND THE MOST RECENT LIST OF MEDICATIONS WITH THE PATIENT. WILL PUT LIST OF MEDICATIONS IN FOLDER FOR AMBULANCE.
--- NOTE | 2019-05-20 18:48 | NUR ---
CLOSING NOTES: PATIENT IS AWAKE AND ALERT x1 LAYING DOWN IN BED AND READY TO BE TRANSFERRED. PATIENT IS TOLERATING OXYGEN AT ROOM AIR WITH NO SIGNS OF DISTRESS OR SHORTNESS OF BREATH NOTED. IV SITE IS PATENT WITH NO SIGNS OF INFILTRATION NOTED. MCCOY CATHETER INTACT AND DRAINING BY GRAVITY. PATIENT IN STABLE CONDITION. SAFETY, FALL, ASPIRATION AND CONTACT PRECAUTIONS REMAINED IN PLACE THROUGHOUT THE SHIFT. BED LOCKED IN LOWEST POSITION WITH CALL LIGHT IN REACH. WILL ENDORSE PATIENT CARE TO ONCOMING THREAD CHECKER NURSE.
--- NOTE | 2019-05-20 20:19 | NUR ---
[facility] here to transport patient to [facility]. Report given to staff. All belongings sent with the patient.
== END 2019-05-20 20:30 | DRG 560 ==
LOC: SED 15:06 → STU 16:08 → SMU 05-19 16:51
PROVIDERS: ADMIT Family Medicine; ATTEND Family Medicine
PROC: 0SWBXJZ Revision of Synthetic Substitute in Left Hip Joint, External Approach (ICD-10-PCS; principal; 2019-05-15 17:15)
DX: T84.021A Dislocation of internal left hip prosthesis, initial encounter (principal); E44.0 Moderate protein-calorie malnutrition; E87.1 Hypo-osmolality and hyponatremia; N39.0 Urinary tract infection, site not specified; Z68.1 Body mass index [BMI] 19.9 or less, adult; D64.9 Anemia, unspecified; M81.0 Age-related osteoporosis without current pathological fracture; J44.9 Chronic obstructive pulmonary disease, unspecified; I10 Essential (primary) hypertension; F31.9 Bipolar disorder, unspecified; F17.210 Nicotine dependence, cigarettes, uncomplicated; M19.90 Unspecified osteoarthritis, unspecified site; K21.9 Gastro-esophageal reflux disease without esophagitis; Y79.2 Prosthetic and other implants, materials and accessory orthopedic devices associated with adverse incidents; E86.0 Dehydration; Y92.89 Other specified places as the place of occurrence of the external cause; Z79.899 Other long term (current) drug therapy; Z88.8 Allergy status to other drugs, medicaments and biological substances; Z88.0 Allergy status to penicillin
CPT/HCPCS: 36415; 71045; 73502; 76000; 80048; 80053; 81000-TC; 83605; 85025; 85610-TC; 87040-TC; 87081; 87086; 87186-TC; 93005; 96361; 96365; 97110-GP; 97112-GP; 97116-GP; 97163; 97530-GP; 99285; G0378; J0692; J0696; J1650; J2175; J2704; J7060; J7120; J7613

== ENCOUNTER 2019-06-05 13:31 | Inpatient (IN) | payer OTHER, MEDICAID ==
[~2019-06-05] VITALS: Ht 167.6 cm; Wt 64.0 kg
[~2019-06-05 13:31] MED LIST changes: -CLON1TAB12 PO; -FLUP10TA PO; -METO50TA7 PO; -TRAZ-250 PO
--- NOTE | 2019-06-05 13:50 | NUR ---
PATIENT PRESENTS TO THE ER WITH EMT ESCORT WITH HX OF LEFT HIP DISLOCATION ON XRAY 06/04/19; PATIENT WAS OBSERVED THEN WITH UNSTEADY GAIT AND WAS EVALUATED; PATIENT IS VERY CONFUSED AND SHOUTING/UNCOOPERATIVE; NO KNOWN TRAUMA, NO OTHER REMARKABLE S/S; PATIENT TO ER #8 AT 1340
[2019-06-05] MEDS ORDERED: LORazepam 2 MG/ML VIAL IVP ONE ×2 (14:00→14:30)
[2019-06-05] MEDS ORDERED: DIPHENHYDRAMINE INJ 50 MG/ML VIAL IVP ONE ×2 (14:00→14:30)
--- NOTE | 2019-06-05 14:02 | NUR ---
IV PLACED #24 LEFT WRIST WITHOUT INCIDENT Addendum: 06/05/19 at 1443 by MEDMT PATIENT PLACED ON THERMOSTAT MECHANIC AND SAO2
[2019-06-05] MEDS ORDERED: AMIODARONE HCL 150 MG in D5W 97 ML IV ONE (14:15)
[2019-06-05] MEDS ORDERED: METOPROLOL TARTRATE 5 MG/5 ML VIAL IVP ONE (14:15)
[2019-06-05 14:18] LABS: BASOPHILS # (AUTO) 0.1 K/uL (0.0-0.2); BASOPHILS % (AUTO) 0.8 % (0.0-2.0); EOSINOPHILS # (AUTO) 0.3 K/uL (0.0-0.4); EOSINOPHILS % (AUTO) 4.4 % (0.0-4.0); HEMATOCRIT 39.7 % (36-48); HEMOGLOBIN 12.9 g/dL (12.0-16.0); LYMPHOCYTES # (AUTO) 1.8 K/uL (1.0-5.5); LYMPHOCYTES % (AUTO) 23.9 % (20.5-51.5); MEAN CORPUSCULAR HEMOGLOBIN 32 pg (27-31); MEAN CORPUSCULAR HGB CONC 33 % (32-36); MEAN CORPUSCULAR VOLUME 99 fL (79.0-98.0); MONOCYTES # (AUTO) 0.5 K/uL (0.0-1.0); MONOCYTES % (AUTO) 7.1 % (1.7-9.3); NEUTROPHILS # (AUTO) 4.9 K/uL (1.8-7.7); NEUTROPHILS % (AUTO) 63.8 % (40.0-70.0); PLATELET COUNT (AUTO) 375 K/uL (130-430); RED BLOOD CELL COUNT(AUTO) 4.02 MIL/uL (4.2-6.2); RED CELL DISTRIBUTION WIDTH 18.8 % (9.0-15.0); WHITE BLOOD COUNT (AUTO) 7.7 K/uL (4.8-10.8)
[2019-06-05 14:28] LABS: CALCIUM 10.5 mg/dL (8.4-11.0); CREATININE 0.74 mg/dL (0.55-1.30); POTASSIUM 3.6 mmol/L (3.5-5.1)
[2019-06-05 14:33] LABS: INR 1.1 (0.8-1.2); PROTHROMBIN TIME 10.9 SECS (9.5-12.5)
[2019-06-05 14:35] LABS: ALBUMIN 3.6 g/dL (3.4-4.8); TOTAL BILIRUBIN 0.7 mg/dL (0.0-1.0)
--- NOTE | 2019-06-05 14:35 | NUR ---
REASSESSMENT; PATIENT SEDATE AND IN NSR; DENIES PAIN, OTHERWISE FULL DISTAL N/C/R IS INTACT, NEURO IS INTACT
--- NOTE | 2019-06-05 14:44 | NUR ---
AT 1410 PATIENT FOUND IN WIDE AND RAPID REGIONAL GUIDE RECORD; ERMD ADVISED
--- NOTE | 2019-06-05 14:45 | NUR ---
SECOND ATIVAN/BENADRYL ORDERS AND AMNIODARONE ORDER HELD PER ERMD
[2019-06-05] MEDS ORDERED: KCL 20 mEq in D5/0.45NS 1000mL 1,000 ML IV SCH (15:15)
--- NOTE | 2019-06-05 15:26 | NUR ---
REASSESSMENT; PATIENT REMAINS SEDATE AND UNCHANGED; ADMISSION PENDING
--- NOTE | 2019-06-05 16:06 | NUR ---
REASSESSMENT BY ERMD; PREPARATIONS TO ADMIT PATIENT TO TELE; PATIENT TRANSPORTED TO TELE ACLS AND REPORT GIVEN AT BEDSIDE; PATIENT REMAINS SEDATE AND UNCHANGED
--- NOTE | 2019-06-05 16:20 | NUR ---
ADMISSION NOTE Received patient from ER via darby, received report from Ion MAY. Patient admitted with diagnosis of left hip dislocation, SVT, arrythmia. Patient oriented to hospital routine, call light, toileting and safety-patient verbalized understanding.
--- NOTE | 2019-06-05 16:30 | NUR ---
Received plan of care via sbar from endorsing nurse Mclaughlin. Assumed care of patient. Patient AOx2 with no complaint of discomfort or pain. Patient not presenting any signs of acute distress. Ensure that all safety measures met.
[2019-06-05 16:35] VITALS: BP_SYST 115
--- NOTE | 2019-06-05 16:45 | NUR ---
Received call from Mother of patient Joanna who expressed concerns with patient's care. Per Mother, she wants to make sure her daughter received Capron and Prolixin for her mood medication. I reviewed the med reconciliation and was able to verify the lithium medication but there was no prolixin.
--- NOTE | 2019-06-05 17:15 | NUR ---
Mother Joanna called again and urged me to provide lithium and prolixin to her daughter. I explained that I have paged Dr. Bhatia and he will ultimately decide.
[2019-06-05] MEDS: KCL 20 mEq in D5/0.45NS 1000mL 1,000 ML IV SCH (17:50)
--- NOTE | 2019-06-05 18:30 | NUR ---
Dr. Bhatia at bedside and provided mothers feedback. Dr. Bhatia will include lithium carbonate and prolixin and a consult to Dr. Wilkinson.
--- NOTE | 2019-06-05 19:00 | NUR ---
Patient found turned in bed. Patient IV was removed. Checked patient and site shows no trauma or bleeding.
[2019-06-05] MEDS ORDERED: LevALBUTEROL HCL 1.25 MG/0.5 ML *CONC.* VIAL.NEB (XOPENEX CONC.) INH PRN (19:15)
[2019-06-05] MEDS ORDERED: ATORVASTATIN 10 MG TABLET PO ONE (19:15)
--- NOTE | 2019-06-05 19:35 | NUR ---
CHANGE OF SHIFT; pt. face covered by her blanket when checked, apparently pt. removed IV on change of shift, threw tele box on the floor. on fall risk precautions. on contact isolation observed, came from SNF today. will reassess shortly. pt. room close to nurses station.
--- NOTE | 2019-06-05 19:38 | NUR ---
Closing Note Provided plan of care via sbar to receiving nurse. Completed patient round.
--- NOTE | 2019-06-05 20:00 | NUR ---
NOTES: pt. finished her dinner. VS checked. observed contact isolation with HX urine infection. on monitoring tech and shows sinus rhythm. checked hands/arms, with very small veins visible.
[2019-06-05 21:00] VITALS: BP_SYST 95
[2019-06-05] MEDS: LOSARTAN POTASSIUM 50 MG TABLET (COZAAR) PO SCH (21:00)
--- NOTE | 2019-06-05 21:00 | NUR ---
NOTES: complete hs care done by VICENTE Parks and her orientee. pt. incontinent of urine and stool. pt. disoriented but able to follow simple commands. kept dry and warm, repositioned.
--- NOTE | 2019-06-05 21:10 | NUR ---
CONSULTATION PAGED/CALLED Reason for Consultation: LEFT HIP DISLOCATION Person Who was Notified: JACOB Consulting Physician: Fly Frame Tender Specialty: Ordering Physician:
--- NOTE | 2019-06-05 21:11 | NUR ---
CONSULTATION PAGED/CALLED Reason for Consultation: BIPOLAR DISORDER Person Who was Notified: MISSY Consulting Physician: Nitrate Operator Specialty: PSYCH Ordering Physician:
[2019-06-05] MEDS: FERROUS SULFATE 325 MG TABLET.DR PO SCH (21:30)
--- NOTE | 2019-06-05 21:30 | NUR ---
NOTES: due meds given and tolerated well. attempted to start IV but unsuccessful, will ask charge nurse Wilner.
[2019-06-05] MEDS: LITHIUM CARBONATE 300 MG TABLET.SA PO SCH (21:32)
[2019-06-05] MEDS: ENOXAPARIN SODIUM 40 MG/0.4 ML SYRINGE SUBCUT SCH (21:50)
--- NOTE | 2019-06-05 22:30 | NUR ---
NOTES: charge nurse Wilner tried to insert IV but unsuccessful also, PICC line nurse Ramon here and ask if he could try to put one IV. pt. was given Boost drink per pt. request.
--- NOTE | 2019-06-05 23:15 | NUR ---
NOTES: PICC line nurse Ramon inserted peripheral IV on left arm gauge # 20 and resume IVF. pt. vomited undigested food. pt. remain disoriented. pt. unable to use call light, frequent rounds.
[2019-06-05] MEDS: LevALBUTEROL HCL 1.25 MG/0.5 ML *CONC.* VIAL.NEB (XOPENEX CONC.) INH SCH (23:47)
[2019-06-06 00:11] VITALS: BP_SYST 95
[2019-06-06 00:30] VITALS: BP_SYST 124
--- NOTE | 2019-06-06 00:30 | NUR ---
NOTES: pt. sleeping when checked. no complaints noted.
--- NOTE | 2019-06-06 02:35 | NUR ---
NOTES: condition observed. IVF infusing. sleeping comfortably and covered up with blanket. bed alarm on.
--- NOTE | 2019-06-06 04:30 | NUR ---
NOTES: pt. sleeping when checked, no complaints manifested.
--- NOTE | 2019-06-06 05:00 | NUR ---
NOTES: partial am care/bertha care, incontinent of urine. repositioned.
--- NOTE | 2019-06-06 05:36 | NUR ---
NOTES: pt. vomited after drinking Ensure and water. reminded not to drink too much at one time. for further care.
--- NOTE | 2019-06-06 06:02 | NUR ---
NOTES: pt. mom called and updated on pt. status, very concerned about the medication (Prolixin), informed her will remind Dr Harvey BYRD on consult today.
--- NOTE | 2019-06-06 06:40 | NUR ---
CLOSING NOTES; pt. dozing on and off. turn from side to side. IVF continuous and patent, securely wrapped on left forearm. maintain bed rest. cardiac pattern remains sinus rhythm. for further care and assistance. call light at bedside, pt. room close to nurses station. will endorse to day shift. contact isolation observed. fall risk precautions, bed alarm on.
[2019-06-06] MEDS: LevALBUTEROL HCL 1.25 MG/0.5 ML *CONC.* VIAL.NEB (XOPENEX CONC.) INH SCH ×2 (08:02→23:18)
--- NOTE | 2019-06-06 08:15 | NUR ---
RN INITIAL NOTES RECEIVED PATIENT IN BED ALERT AWAKE AND VERBAL , NO DISTRESS, RESP EVEN AND UNLABORED , PATIENT RESPONDS TO QUESTIONS ASKED BUT UNABLE TO FOLLOW THE CONVERSATION , OUT OF TOPIC , SAFETY ENSURED , CALL LIGHT WITHIN REACH, LEFT LEG IS SHORTER THAN THE RIGHT LEG , SEEN BY DR BARRAZA (ORTHO) DISCUSSED PATIENT CONDITION AND ORDERED FOR CLOSED REDUCTION OF LEFT HIP FX, WILL SECURE CONSENT
[2019-06-06] MEDS: FERROUS SULFATE 325 MG TABLET.DR PO SCH ×2 (08:23→20:20)
[2019-06-06] MEDS: CLOPIDOGREL BISULFATE 75 MG TABLET PO SCH (08:23)
[2019-06-06] MEDS: LITHIUM CARBONATE 300 MG TABLET.SA PO SCH ×2 (08:23→20:20)
[2019-06-06] MEDS: MULTIVITS,CA,MINERALS/IRON/FA 1 TABLET PO SCH (08:23)
[2019-06-06] MEDS: KCL 20 mEq in D5/0.45NS 1000mL 1,000 ML IV SCH ×2 (08:23→20:14)
[2019-06-06] MEDS: ATORVASTATIN 10 MG TABLET PO SCH (08:23)
[2019-06-06] MEDS: LOSARTAN POTASSIUM 50 MG TABLET (COZAAR) PO SCH ×2 (08:24→20:20)
--- NOTE | 2019-06-06 09:40 | NUR ---
Nutrition Update Robb Scale 14 noted. Pt admitted for L hip dislocation, supraventricular tachycardia. Diet: mechanical soft BMI: 22.6 kg/m2 RD to follow per nutrition care standards.
--- NOTE | 2019-06-06 10:12 | NUR ---
ROUNDS PATIENT CALMED AND RELAXED AT THIS TIME , REMINDED PATIENT TO BE NPO AND INFORMED PATIENT THAT SHE WILL HAVE ORTHO PROCEDURE IN OR TODAY FOR REDUCTION OF LEFT HIP DISLOCATION , PATIENT STATED SHE WANTS TO TALK TO THE DR . INFORMED THAT THE DR WAS ALREADY HERE AND PATIENT STATED NO AURA DR DID NOT TALK TO ME, INFORMED PATIENT ORTHO DR MADE HIS ROUNDS ALREADY AND WAS HERE IN THE ROOM EARLIER, WILL FOLLOW UP WITH THE CONSENT WITH THE FAMILY, SAFETY ENSURED AND REMINDED TO CALL FOR HELP, CALL LIGHT WITHIN REACH
--- NOTE | 2019-06-06 11:15 | NUR ---
FAMILY CONCERN WITH ORTHO SURGEON CONCERN ABOUT THE CONSENT MOTHER WAS CALLED AND DISCUSSED PLAN OF THE ORTHO SURGEON TO DO CLOSE REDUCTION OF LEFT HIP FX, PER ALEC AND WITH ERIC SISTER SPEAKING ABOUT THE PLAN OF SURGERY , PER MOTHER AND SISTER THEY WANT THE DR TO EXPLAIN TOT HE PATIENT AGAIN TO ALLEY HER FEARS AND BE ASSURED ABOUT THE PLAN OF SURGERY SO THE PATIENT WOULD AGREE, AND ALSO THEY WANTS DR ORELLANA TO DO THE SURGERY BEC DR BARRAZA DO NOT HAVE TIME FOR THEIR QUESTIONS , EXPLAINED TOT HE FAMILY THAT DR BARRAZA WAS HERE ALREADY THIS AM AND SPOKE WITH THE PATIENT , PER MOTHER ALEC SHE WANTS THE PATIENT TO BE BACK TO PROLIXIN BEC THE PATIENT NEEDS THE MEDICATION TO MAINTAIN THE MOOD AND BEHAVIOR, EXPLAINED TO THE MOTHER ALEC THAT PROLIXIN WILL BE DEALT LATER WHEN THE PSYCHIATRIST COME AND WILL CALL HER FOR THE PROLIXIN CONCERN BUT FOR NOW PATIENT NEEDS A CONSENT FOR THE CLOSE REDUCTION OF LEFT HIP FX. PER ALEC NO CONSENT TILL THEY SPEAK WITH THE ORTHO SURGEON, INFORMED MOTHER WILL PAGE DR BARRAZA SO SHE COULD TALK TO THE DR BEFORE SHE GIVES US CONSENT , CHARGE NURSE MADE AWARE
--- NOTE | 2019-06-06 11:58 | NUR ---
REFUSED URINE COLLECTION PER PATIENT NO TO WHEN OFFERED FOR URINE COLLECTION , SHE SAID NO SURGERY , ANESTHESIOLOGIST BY THE BEDSIDE AWRE OF THE SITUATION REGARDING PENDING CONSENT
[2019-06-06 12:37] VITALS: BP_SYST 130
--- NOTE | 2019-06-06 13:18 | NUR ---
REFUSED COLLECTION OF URINE OFFERED AGAIN PATIENT TALKING NONSENSE AND WONT LET ME COLLECT URINE Addendum: 06/06/19 at 1722 by Joycelyn Beal RN URINE COLLECTED AND SENT TO LAB
[2019-06-06 16:10] VITALS: BP_SYST 135
--- NOTE | 2019-06-06 16:15 | NUR ---
Wound Evaluation: Wound Consult ordered for Low Robb Score. Patient evaluated for a low Robb score of a 14. Patient was awake, alert, confused, and received in a [place] Bed with an IsoFlex SCOTTY mattress with low air loss therapy initiated. Patient needs assist to turn in bed secondary to left hip fracture and pain. Skin assessment: 1. Sacral area: Scar tissue with dry flaky skin and erythema from IAD, present on admission. Recommend: Cleanse involved area with mild soap and water. Pat dry. Apply Calmoseptine cream to involved area. Perform site care 4 times a day and when necessary for soiling. 2. Buttocks/Perianal area: Erythema from IAD, present on admission. 3. Bilateral Inguinal areas: Erythema from IAD, present on admission. Recommend: Cleanse involved areas with mild soap and water. Pat dry. Apply antifungal powder to reddened areas. Perform site care twice a day. Recommend: Reposition patient side to side only every 2 hours with pillow wedge pelvic tilt. Elevate, off-load and float bilateral heels with towel rolls (secondary to abductor pillow in place)at all times. Offload pressure areas with pillows for pressure re-distribution. Perform skin care and monitor skin integrity Q shift. Use Calmoseptine cream on moisture susceptible areas QID and PRN for soiling. Maintain patient on low air-loss therapy.
--- NOTE | 2019-06-06 16:30 | NUR ---
TAKEN TO SURGERY PATIENT TAKEN TO SURGERY BY OR STAFF , PATIENT DUYEN MICHAEL CONSENTED VIA TELEPHONE FOR THE SURGERY, ANESTHESIA, AND BLOOD TRANSFUSION . FULLY EXPLAINED BY THE ANESTHESIOLOGIST , ALSO CONSULT WITH WOUND NURSE MEDS WILL BE STARTED ONCE PATIENT BACK FROM SURGERY, DR TIAN WAS HERE AND SAID HE WILL CALL THE FAMILY REGARDING PROLIXIN
[2019-06-06] MEDS ORDERED: DEXAMETHASONE SOD PHOSPHATE 4 MG/ML VIAL IVP ONE (16:40)
[2019-06-06] MEDS ORDERED: NS 1000 ML IV.SOLN IV ONE (16:40)
[2019-06-06] MEDS ORDERED: ROCURONIUM BROMIDE 10 MG/ML (ZEMURON) IV ONE (16:40)
[2019-06-06] MEDS ORDERED: ONDANSETRON HCL 4 MG/2 ML VIAL IVP ONE (16:40)
[2019-06-06] MEDS ORDERED: SEVOFLURANE 15 MIN GAS INH ONE (16:40)
[2019-06-06] MEDS ORDERED: SUCCINYLCHOLINE CHLORIDE 20 MG/ML(QUELICIN) IVP ONE (16:40)
[2019-06-06] MEDS ORDERED: SUGAMMADEX SODIUM 200 MG/2 ML VIAL IV ONE (16:40)
--- NOTE | 2019-06-06 18:12 | NUR ---
PAGED DR TIAN PATIENT MOM ALEC STATED SHE MISSED THE PHONE CALL OF DR TIAN . PAGED DR TIAN TO HAVE HIM CALL BACK ALEC
--- NOTE | 2019-06-06 18:54 | NUR ---
RETURN FROM SURGERY 183 PATIENT RETURN FROM SURGERY NO CLOSED REDUCTION DONE PATIENT WILL NEED ANOTHER PROCEDURE , PATIENT PLACED BACK IN BED ALERT AWAKE AND VERBALLY RESPONSIVE DIET RESUMED TO MI , WILL INFORM FAMILY SURGERY WAS NOT PERFORMED
[2019-06-06 20:20] VITALS: BP_SYST 128
--- NOTE | 2019-06-06 20:20 | NUR ---
Opening notes Pt alert, awake, confused and talking non-stop. VSS, afebrile, no s/s distress noted. New IVF bag given at ordered rate R. wrist 24G secured with splint. L. arm swollen, elevated on pillow. Venkatesh heels floated on towel rolls and pillow between legs. Call light within reach. Safety maintained, bed low, locked in position, siderails up x3, bed alarm on. To monitor.
--- NOTE | 2019-06-06 20:25 | NUR ---
Pt voided Pt voided using bedpan, noted yellow, cloudy urine with odor. Pericare provided and Z guard applied for redness in periarea/sacrum. Urine sample collected and sent to lab for UA/Cx.
[2019-06-06] MEDS: ENOXAPARIN SODIUM 40 MG/0.4 ML SYRINGE SUBCUT SCH (21:04)
[2019-06-06 21:13] LABS: BILIRUBIN,URINE NEGATIVE (NEGATIVE); BLOOD, URINE NEGATIVE (NEGATIVE); COLOR,URINE YELLOW (YELLOW); GLUCOSE,URINE NEGATIVE (NEGATIVE); KETONES,URINE NEGATIVE (NEGATIVE); LEUKOCYTE ESTERASE ,URINE 3+ (NEGATIVE); NITRITE, URINE POSITIVE (NEGATIVE); PROTEIN URINE NEGATIVE (NEGATIVE); UROBILINOGEN,URINE 0.2 (0.2-1.0)
--- NOTE | 2019-06-06 21:15 | NUR ---
Dr. Iverson rounds aware Closed reduction of L hip failed. MD informed UA positive, awaiting culture and pt had vomitted.
[2019-06-06 21:21] LABS: CLARITY/URINE HAZY (CLEAR)
[2019-06-06 21:23] LABS: BACTERIA,URINE MANY /HPF (None Seen); MUCUS,URINE None Seen /LPF (None Seen); RBC,URINE NONE SEEN /HPF (0-3); WBC,URINE 50-80 /HPF (0-3)
--- NOTE | 2019-06-06 23:35 | NUR ---
Rounds Pt asleep, respirations even and unlabored. IVF infusing at ordered rate R. wrist. Venkatesh heels floated on rolled towels. Call light within reach. Bed remains low, locked, siderails up x3. To monitor.
[2019-06-07 01:16] VITALS: BP_SYST 130
--- NOTE | 2019-06-07 01:35 | NUR ---
Rounds Pt asleep, respirations even and unlabored. IVF infusing at ordered rate R. wrist dressing secured. Call light within reach. Safety maintained. To monitor.
--- NOTE | 2019-06-07 05:55 | NUR ---
Closing notes Pt awake, no s/s distress noted. IVF infusing at ordered rate R wrist no s/s infiltration noted. Pillows between legs and towel under mario alberto heels maintained. Pt on low air loss mattress. Call light within reach. Safety maintained. Bed low, locked, siderails up x3. Pt informed her family called this AM. To endorse to AM nurse.
[2019-06-07] MEDS: LevALBUTEROL HCL 1.25 MG/0.5 ML *CONC.* VIAL.NEB (XOPENEX CONC.) INH SCH ×3 (07:00→23:00)
[2019-06-07 07:30] VITALS: BP_SYST 146
--- NOTE | 2019-06-07 07:35 | NUR ---
AM ROUNDS: PATIENT COVERED HERSELF ALL OVER WITH BLANKETS. PATIENT DOES NOT WANT TO BE DISTURBED. IV FLUIDS RUNNING AT RIHGT WRIST,INTACT.ON CONTACT ISOLATION FOR HISTORY OF MDRO IN URINE,PRECAUTION RENDERED.REPORT RECEIVED FROM NIGHT NURSE ANA ROSA.CALL LIGHT WITH IN REACH. BED LOCKED AT LOWEST POSITION. BED ALARM ON. NO ACUTE DISTRESS.
[2019-06-07] MEDS: LOSARTAN POTASSIUM 50 MG TABLET (COZAAR) PO SCH ×2 (09:32→20:23)
[2019-06-07] MEDS: FERROUS SULFATE 325 MG TABLET.DR PO SCH ×2 (09:32→20:23)
[2019-06-07] MEDS: CLOPIDOGREL BISULFATE 75 MG TABLET PO SCH (09:32)
[2019-06-07] MEDS: MULTIVITS,CA,MINERALS/IRON/FA 1 TABLET PO SCH (09:32)
[2019-06-07] MEDS: ATORVASTATIN 10 MG TABLET PO SCH (09:32)
[2019-06-07] MEDS: LITHIUM CARBONATE 300 MG TABLET.SA PO SCH ×2 (09:32→20:22)
--- NOTE | 2019-06-07 09:32 | NUR ---
Med Pass: It takes a while for patient to be convince regarding taking her oral meds for bp/heart,psyche.Patient took it slowly,with no problem.
[2019-06-07] MEDS: KCL 20 mEq in D5/0.45NS 1000mL 1,000 ML IV SCH ×2 (09:33→23:16)
--- NOTE | 2019-06-07 12:30 | NUR ---
Rn Rounds: No appetite per patient. Stable. .
[2019-06-07 12:56] VITALS: BP_SYST 150
--- NOTE | 2019-06-07 14:30 | NUR ---
rn rounds: resting this time. No aute distress.
--- NOTE | 2019-06-07 16:09 | NUR ---
Dietitian Recommendations * Recommend mechanical soft diet w/ Ensure Enlive TID (ONS provides 1050 kcal/day, 60 gm protein/day) MODESTO RAMIREZ Please refer to Nutrition Assessment for details. Addendum: 06/07/19 at [address] Amended: Links added.
[2019-06-07 16:41] VITALS: BP_SYST 142
--- NOTE | 2019-06-07 16:52 | NUR ---
Rn Rounds: Patient resting. Stable.
--- NOTE | 2019-06-07 18:27 | NUR ---
End of shift: Patient awake but no appetite.Encouraged to eat but refused to listen even with education given. Non compliant at times. Continue to give teachings. Call light with in reach. Bed locked at lowest position. Safety measures rendered. Continue to monitor.
[2019-06-07 19:40] VITALS: BP_SYST 121
--- NOTE | 2019-06-07 19:40 | NUR ---
INITIAL NOTE PATIENT IS LAYING IN BED AND STABLE. NO S/S OF RESPIRATORY DISTRESS NOTED. PATIENT UNSUCCESSFULLY DEMONSTRATES USAGE OF CALL LIGHT. WILL CONTINUE TO MONITOR. BED IS LOCKED, ALARMED, AND AT THE LOWEST POSITION. FALL, SAFETY, ASPIRATION, RESPIRATOR, AND CONTACT PRECAUTIONS WILL BE IN PLACE THROUGHOUT THE SHIFT. PLAN OF CARE IS DISCUSSED WITH PATIENT AT THIS TIME. PATIENT VERBALIZES NO PAIN.
[2019-06-07] MEDS: ENOXAPARIN SODIUM 40 MG/0.4 ML SYRINGE SUBCUT SCH (20:28)
--- NOTE | 2019-06-07 21:40 | NUR ---
PATIENT IS RESTING IN BED AND STABLE. NO S/S OF RESPIRATORY DISTRESS NOTED. CALL LIGHT IN REACH. BED IS LOCKED, ALARMED, AND AT THE LOWEST POSITION.
--- NOTE | 2019-06-07 23:40 | NUR ---
PATIENT IS SLEEPING IN BED AND STABLE. NO S/S OF RESPIRATORY DISTRESS NOTED. CALL LIGHT IN REACH. BED IS LOCKED, ALARMED, AND AT THE LOWEST POSITION.
[2019-06-08 01:13] VITALS: BP_SYST 131
--- NOTE | 2019-06-08 01:39 | NUR ---
PATIENT IS RESTING IN BED AND STABLE. NO S/S OF RESPIRATORY DISTRESS NOTED. CALL LIGHT IN REACH. BED IS LOCKED, ALARMED, AND AT THE LOWEST POSITION.
--- NOTE | 2019-06-08 02:54 | NUR ---
PATIENT IS SLEEPING IN BED AND STABLE. NO S/S OF RESPIRATORY DISTRESS NOTED. CALL LIGHT IN REACH. BED IS LOCKED, ALARMED, AND AT THE LOWEST POSITION.
--- NOTE | 2019-06-08 04:03 | NUR ---
PATIENT IS SLEEPING IN BED. PATIENT IS STABLE AND SHOWS NO S/S OF RESPIRATORY DISTRESS. CALL LIGHT IN REACH. BED IS LOCKED, ALARMED, AND AT THE LOWEST POSITION.
--- NOTE | 2019-06-08 06:15 | NUR ---
COMMUNICATED WITH FAMILY
--- NOTE | 2019-06-08 06:35 | NUR ---
PAGED DR. MARIE REGARDING ORDERS. DR. DAVILA LAB SUPPORT SERVICE TECH.
--- NOTE | 2019-06-08 06:37 | NUR ---
CLOSING NOTES PATIENT IS STABLE. NO S/S OF RESPIRATORY DISTRESS. CALL LIGHT IN REACH. BED IS LOCKED, ALARMED, AND AT THE LOWEST POSITION. FALL, SAFETY, CONTACT, ASPIRATION, AND RESPIRATORY PRECAUTIONS WAS PLACED THROUGHOUT THE SHIFT. WILL CONTINUE TO MONITOR UNTIL REPORT IS GIVEN TO AM NURSE BY BEDSIDE. Addendum: 06/09/19 at 0325 by Ryanne Delgado RN EDUCATED PATIENT THROUGHOUT THE SHIFT ABOUT BODY ALIGNMENT.
[2019-06-08 07:22] VITALS: BP_SYST 131
[2019-06-08] MEDS: LevALBUTEROL HCL 1.25 MG/0.5 ML *CONC.* VIAL.NEB (XOPENEX CONC.) INH SCH ×3 (07:22→23:00)
--- NOTE | 2019-06-08 07:30 | NUR ---
AM ROUNDS: UPDATES GIVEN BY NIGHT NURSE JONATHAN. PATIENT ON THE BED,AWAKE. MAINTAINED CONTACT ISOLATION PRECAUTION RENDERED. CALL LIGHT WITH IN REACH. BED LOCKED AT LOWEST POSITION.BED ALARM ON. NOT IN ANY DISTRESS.
[2019-06-08 07:40] VITALS: BP_SYST 131
--- NOTE | 2019-06-08 07:52 | NUR ---
communicated with family and endorsed information to charge nurse and morning nurse
--- NOTE | 2019-06-08 08:00 | NUR ---
RN NOTES: DR THOMAS WAS PAGE EARLIER BUT NO RESPONSE SINCE THEN. WAITING FOR PSYCHE DOCTOR TO COME FOR VERIFICATION OF MEDS -GIVEN BY THE PTS MOTHER.
[2019-06-08] MEDS: LOSARTAN POTASSIUM 50 MG TABLET (COZAAR) PO SCH ×2 (09:12→20:20)
[2019-06-08] MEDS: MULTIVITS,CA,MINERALS/IRON/FA 1 TABLET PO SCH (09:12)
[2019-06-08] MEDS: FERROUS SULFATE 325 MG TABLET.DR PO SCH ×2 (09:12→20:20)
[2019-06-08] MEDS: CLOPIDOGREL BISULFATE 75 MG TABLET PO SCH (09:12)
[2019-06-08] MEDS: LITHIUM CARBONATE 300 MG TABLET.SA PO SCH ×2 (09:13→20:20)
[2019-06-08] MEDS: ATORVASTATIN 10 MG TABLET PO SCH (09:13)
--- NOTE | 2019-06-08 10:00 | NUR ---
RN ROUNDS: RESTING. NOT IN ANY DISTRESS.
[2019-06-08] MEDS: KCL 20 mEq in D5/0.45NS 1000mL 1,000 ML IV SCH (11:20)
--- NOTE | 2019-06-08 12:00 | NUR ---
LUNCH: SET UP PATIENT FOR LUNCH. TOOK SOME BITES OF ROAST BEEF/MASH POTATOES. TOLERATED WELL.
[2019-06-08 12:29] VITALS: BP_SYST 133
--- NOTE | 2019-06-08 14:05 | NUR ---
Dc Tele: Downgraded patient to medical surgical as ordered. No distress.
[2019-06-08] MEDS ORDERED: NICOTINE 21 MG/24 HR PATCH.TD24 TD ONE (14:30)
[2019-06-08 15:30] VITALS: BP_SYST 108
--- NOTE | 2019-06-08 17:24 | NUR ---
Care Notes: Patient had a large amount of void. Washed with mild soap and water.Pat dry,barrier cream to redness area.
--- NOTE | 2019-06-08 18:29 | NUR ---
CLOSING NOTES: PATIENT HAVING DINNER THIS TIME. CALL LIGHT WITH IN REACH. BED LOCKED AT LOWEST POSITION. BED ALARM ON.SAFETY MEASURES RENDERED. CONTINUE TO MONITOR.NO DISTRESS.
[2019-06-08 19:40] VITALS: BP_SYST 117
--- NOTE | 2019-06-08 19:40 | NUR ---
INITIAL NOTES PATIENT IS RESTING IN BED AND STABLE. NO S/S OF RESPIRATORY DISTRESS NOTED. PATIENT VERBALIZES NO PAIN. PATIENT UNSUCCESSFULLY DEMONSTRATES USAGE OF CALL LIGHT AT THIS TIME. WILL CONTINUE TO MAKE ROUNDS. FALL, SAFETY, ASPIRATION, RESPIRATORY, AND CONTACT PRECAUTIONS WILL BE IN PLACE THROUGHOUT THE SHIFT. PLAN OF CARE IS DISCUSSED WITH PATIENT AT THIS TIME. EDUCATED PATIENT ON BODY ALIGNMENT AND LEG BRACE (PER FAMILIES REQUEST). PATIENT REFUSED.
[2019-06-08] MEDS: ENOXAPARIN SODIUM 40 MG/0.4 ML SYRINGE SUBCUT SCH (20:21)
--- NOTE | 2019-06-08 21:00 | NUR ---
COMMUNICATED WITH PATIENT FAMILY
--- NOTE | 2019-06-08 21:40 | NUR ---
PATIENT IS LAYING IN BED AND STABLE. NO S/S OF RESPIRATORY DISTRESS NOTED. CALL LIGHT IN REACH. BED IS LOCKED, ALARMED, AND AT THE LOWEST POSITION. EDUCATED PATIENT ON BODY ALIGNMENT. PATIENT REFUSED LEG BRACE. FAMILY REQUEST TV TO BE ON, PATIENT REFUSED AT THIS TIME. EXTRA BLANKETS, SOCKS, AND PILLOWS PROVIDED PER FAMILY REQUEST.
--- NOTE | 2019-06-08 23:40 | NUR ---
PATIENT IS SLEEPING AT THIS TIME. NO S/S OF RESPIRATORY DISTRESS NOTED. CALL LIGHT IN REACH. BED IS LOCKED, ALARMED, AND AT THE LOWEST POSITION.
[2019-06-09 00:35] VITALS: BP_SYST 137
[2019-06-09] MEDS: KCL 20 mEq in D5/0.45NS 1000mL 1,000 ML IV SCH ×2 (00:56→13:46)
--- NOTE | 2019-06-09 01:35 | NUR ---
PATIENT PULLED OUT IV AT THIS TIME. TIP INTACT AND NO MAJOR S/S OF BLEEDING. NEW IV PLACED ON LEFT HAND 24 G. IV IS PATENT AND INTACT. PATIENT TOLERATED WELL. PATIENT IS STABLE. NO S/S OF RESPIRATORY DISTRESS NOTED. CALL LIGHT IN REACH. BED IS LOCKED, ALARMED, AND AT THE LOWEST POSITION.
--- NOTE | 2019-06-09 03:35 | NUR ---
PATIENT IS STABLE AND LAYING IN BED. NO S/S OF RESPIRATORY DISTRESS NOTED. CALL LIGHT IN REACH. BED IS LOCKED, ALARMED, AND AT THE LOWEST POSITION. Addendum: 06/09/19 at 0338 by Ryanne Delgado RN EDUCATED PATIENT ON BODY ALIGNMENT. PATIENT REFUSED PILLOWS AND BRACE.
--- NOTE | 2019-06-09 04:18 | NUR ---
PATIENT IS SLEEPING IN BED AND STABLE. NO S/S OF RESPIRATORY DISTRESS NOTED. CALL LIGHT IN REACH. BED IS LOCKED, ALARMED, AND AT THE LOWEST POSITION.
--- NOTE | 2019-06-09 05:40 | NUR ---
PERFORMED HYGIENE CARE AT THIS TIME WITH MUSIC WRITER. PARTIAL BED BATH GIVEN. PATIENT TOLERATED WELL. LINENS WERE CHANGED. NO S/S OF RESPIRATORY DISTRESS NOTED. CALL LIGHT IN REACH. BED IS LOCKED, ALARMED, AND AT THE LOWEST POSITION. EDUCATED PATIENT ON BODY ALIGNMENT. PATIENT REFUSED.
--- NOTE | 2019-06-09 06:16 | NUR ---
CLOSING NOTES PATIENT IS RESTING IN BED AND STABLE. NO S/S OF RESPIRATORY DISTRESS NOTED. CALL LIGHT IN REACHED. BED IS LOCKED, ALARMED, AND AT THE LOWEST POSITION. FALL, SAFETY, ASPIRATION, RESPIRATORY AND CONTACT PRECAUTIONS HAS BEEN PLACED THROUGHOUT THE SHIFT. PATIENT WAS EDUCATED ABOUT BODY ALIGNMENT THROUGHOUT THE SHIFT. WILL CONTINUE TO MONITOR UNTIL REPORT IS GIVEN TO AM NURSE BY BEDSIDE.
[2019-06-09] MEDS: LevALBUTEROL HCL 1.25 MG/0.5 ML *CONC.* VIAL.NEB (XOPENEX CONC.) INH SCH ×3 (07:37→23:00)
[2019-06-09 07:55] VITALS: BP_SYST 135
--- NOTE | 2019-06-09 07:55 | NUR ---
Opening note patient resting in bed, confused, reoriented to place, time and event, difficult to understand patient's speech, she denies pain, educated her employee relation manager light system and to call for any assistance, she said,"okay," continuing to monitor, IV line is patent and infusing well, bed in lowest position, three side rails up, bed alarm on, bed close to nursing station, fall, aspiration and isolation precautions in place.
[2019-06-09] MEDS: FERROUS SULFATE 325 MG TABLET.DR PO SCH ×2 (09:15→22:29)
[2019-06-09] MEDS: LITHIUM CARBONATE 300 MG TABLET.SA PO SCH ×2 (09:16→22:29)
[2019-06-09] MEDS: MULTIVITS,CA,MINERALS/IRON/FA 1 TABLET PO SCH (09:16)
[2019-06-09] MEDS: NICOTINE 21 MG/24 HR PATCH.TD24 TD SCH (09:16)
[2019-06-09] MEDS: LOSARTAN POTASSIUM 50 MG TABLET (COZAAR) PO SCH ×2 (09:16→22:29)
[2019-06-09] MEDS: ATORVASTATIN 10 MG TABLET PO SCH (09:16)
[2019-06-09] MEDS: CLOPIDOGREL BISULFATE 75 MG TABLET PO SCH (09:16)
--- NOTE | 2019-06-09 09:20 | NUR ---
Medication patient resting in bed, awake, denies pain, educated her on each medication uses and potential side effects, she said m,"okay," she took each medication one by one, she tolerated well, no other needs at this time, continuing to monitor, IV line is patent and infusing well, bed in lowest position, three side rails up, bed alarm on, bed close to nursing station, fall, aspiration and isolation precautions in place.
--- NOTE | 2019-06-09 11:21 | NUR ---
RN rounds patient resting in bed, denies pain, no signs of distress, continuing to monitor, bed in lowest position, three side rails up, bed alarm on, bed close to nursing station, fall, aspiration and isolation precautions in place, call light placed within reach.
[2019-06-09 12:40] VITALS: BP_SYST 99
--- NOTE | 2019-06-09 12:40 | NUR ---
RN rounds patient resting in bed, denies pain, no signs of distress, eating lunch, continuing to monitor, bed in lowest position, three side rails up, bed alarm on, bed close to nursing station, fall, aspiration and isolation precautions in place, call light placed within reach.
--- NOTE | 2019-06-09 13:46 | NUR ---
RN rounds patient resting in bed, awake, denies pain, IVF hung and infusing well, patient has no other needs at this time, continuing to monitor, bed in lowest position, three side rails up, bed alarm on, bed close to nursing station, fall, aspiration and isolation precautions in place, call light placed within patient reach.
--- NOTE | 2019-06-09 15:00 | NUR ---
RN rounds patient resting in bed, eyes closed, breathing is even and unlabored, no signs of distress, continuing to monitor, bed in lowest position, three side rails up, bed alarm on, bed close to nursing station, fall, aspiration and isolation precautions in place, call light placed within reach of patient.
--- NOTE | 2019-06-09 15:02 | NUR ---
Dr. Iverson rounds informed of urine culture results at this time, MD to put in orders. Informed that patient's family had questions about a psych medication. Dr. Iverson would like Dr. Valle paged to talk about plan of care - potential open reduction internal fixation - Dr. Valle needs to speak with the family about the options, will follow up.
--- NOTE | 2019-06-09 15:26 | NUR ---
Ji Nam correction to previous note, Dr. Nam previously attempted the closed reduction of the left hip. Paged MD to speak with the patient's family regarding plan of care.
--- NOTE | 2019-06-09 15:40 | NUR ---
Patient refused lab patient yelling and shouting, refusing lab draw at this time.
--- NOTE | 2019-06-09 15:49 | NUR ---
SS NOTE/ATTEMPT: PAIN MANAGEMENT PHYSICIAN attempted to meet with patient who appeared to be confused. PAIN MANAGEMENT PHYSICIAN attempted to phone Joanna galeana @ [phone], no answer. SS will attempt again.
--- NOTE | 2019-06-09 15:53 | NUR ---
Second page to Dr. Nam the patient's family is here, wanting to speak with him about plan of care. Addendum: 06/09/19 at 1622 by Darrell Mitchell RN Spoke with Dr. Nam - apparently Dr. Valle saw the patient yesterday (no progress note from Dr. Valle yet regarding the visit), Dr. Valle did the original surgery on the patient and he plans to either do revision or open reduction internal fixation - According to Dr. Nam, Dr. Valle will come to speak with the family either tonight or tomorrow. Will inform the patient's family about this. Addendum: 06/09/19 at 1626 by Darrell Mitchell RN Patient's POA - her mother Joanna - is not here at the bedside at this time, will wait and if she is not here later, will call her and inform her of what Dr. Nam said, following up as needed.
[2019-06-09 16:55] VITALS: BP_SYST 101
[2019-06-09] MEDS: GENTAMICIN SULFATE 400 MG in NS 100 ML IV SCH (17:05)
--- NOTE | 2019-06-09 17:13 | NUR ---
Family at bedside spoke with patient's mother, Joanna, about what Dr. Nam said about Dr. Valle coming to see the patient, educated Joanna about patient's urine infection and new antibiotic, Joanna verbalized understanding at this time.
--- NOTE | 2019-06-09 17:14 | NUR ---
RN rounds patient resting in bed, soiled, resisting to be turned and cleaned, patient finally agreed, she voided and was repositioned, she tolerated well, IV line is patent and infusing well, IV antibiotic hung, patient's family is at bedside at this time, educated the family on isolation precautions as well, no other needs at this time, continuing to monitor, bed in lowest position, three side rails up, bed alarm on, bed close to nursing station, call light placed within patient reach.
--- NOTE | 2019-06-09 18:37 | NUR ---
Closing note patient resting in bed, eating dinner, all needs met, will endorse report to NOC shift nurse, IV line is patent and infusing well, bed in lowest position, three side rails up, bed alarm on, bed close to nursing station, fall, isolation and aspiration precautions in place, call light is within her reach.
--- NOTE | 2019-06-09 21:52 | NUR ---
Patient refused to withdraw blood for CMP: Per Helene Pre School Teacher, patient refused to have blood draw for CMP. Requested Helene to do CMP , the same time with Gentamicin random at 0300 tomorrow morning.
[2019-06-09] MEDS: ENOXAPARIN SODIUM 40 MG/0.4 ML SYRINGE SUBCUT SCH (22:34)
[2019-06-10 02:41] VITALS: BP_SYST 123
[2019-06-10 03:31] LABS: ALBUMIN 3.1 g/dL (3.4-4.8); CREATININE 0.55 mg/dL (0.55-1.30); POTASSIUM 3.7 mmol/L (3.5-5.1); TOTAL BILIRUBIN 0.6 mg/dL (0.0-1.0)
[2019-06-10 04:00] VITALS: BP_SYST 141
[2019-06-10] MEDS: KCL 20 mEq in D5/0.45NS 1000mL 1,000 ML IV SCH (04:10)
[2019-06-10] MEDS: LevALBUTEROL HCL 1.25 MG/0.5 ML *CONC.* VIAL.NEB (XOPENEX CONC.) INH SCH ×3 (07:30→23:00)
--- NOTE | 2019-06-10 08:00 | NUR ---
received awake and in no c/o discomfort vss resp even and unlabored.iv infusing at 75hr.incontinent and changed and repositioned for breakfast.continue to monitor call thomas in place
[2019-06-10] MEDS: LITHIUM CARBONATE 300 MG TABLET.SA PO SCH ×2 (09:00→20:30)
[2019-06-10] MEDS: MULTIVITS,CA,MINERALS/IRON/FA 1 TABLET PO SCH (09:00)
[2019-06-10] MEDS: FERROUS SULFATE 325 MG TABLET.DR PO SCH ×2 (09:00→20:30)
[2019-06-10] MEDS: CLOPIDOGREL BISULFATE 75 MG TABLET PO SCH (09:00)
[2019-06-10] MEDS: NICOTINE 21 MG/24 HR PATCH.TD24 TD SCH (09:00)
[2019-06-10] MEDS: ATORVASTATIN 10 MG TABLET PO SCH (09:00)
[2019-06-10] MEDS: LOSARTAN POTASSIUM 50 MG TABLET (COZAAR) PO SCH ×2 (09:00→20:13)
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
[2019-06-10] MEDS ORDERED: QUEtiapine FUMARATE 25 MG TABLET PO ONE (11:30)
[2019-06-10 12:00] VITALS: BP_SYST 94
[2019-06-10 16:18] VITALS: BP_SYST 104
[2019-06-10] MEDS: GENTAMICIN SULFATE 400 MG in NS 100 ML IV SCH (18:08)
[2019-06-10 19:00] VITALS: BP_SYST 102
[2019-06-10 20:00] VITALS: BP_SYST 103
[2019-06-10] MEDS: QUEtiapine FUMARATE 25 MG TABLET PO SCH (20:30)
[2019-06-10] MEDS: ENOXAPARIN SODIUM 40 MG/0.4 ML SYRINGE SUBCUT SCH (20:32)
--- NOTE | 2019-06-10 20:46 | NUR ---
Dr Bella called to clarify the order for the seroquel BID and QHS. with orders to given the BID at 0900 hours and 1700 hours. and pharmacy is informed and order modified as ordered, Addendum: 06/10/19 at 2048 by Fifteen program engineer cozaar dose held for low parameters
[2019-06-10] MEDS ORDERED: QUEtiapine FUMARATE 25 MG TABLET PO SCH (21:00)
--- NOTE | 2019-06-10 23:20 | NUR ---
patient received on bed awake and shouting uncontrlably. with ivf on, able to calm dowm and was able to take her medication,. patient lashon started shouting loud and has pulled on her iv cannula i\and refused tto be touched, cleaned and kept dry but the security has to be present as she is shouting ,combative and uncooperative, Dr Bella paged for orders,patient ivf is off and no iv cannula present.messageleft with the response,. awaiting res;onse
--- NOTE | 2019-06-10 23:57 | NUR ---
awaiting for Dr Gabriel to callback.Dr Iverson paged as the patient refused iv insertion and ivf is off.called back and with no orders made, is aware patient has no iv cannula and ivf is off.
[2019-06-11 00:16] VITALS: BP_SYST 105
[2019-06-11] MEDS ORDERED: LORazepam 2 MG/ML VIAL IM ONE (01:30)
[2019-06-11] MEDS ORDERED: DIPHENHYDRAMINE INJ 50 MG/ML VIAL IM ONE (01:30)
--- NOTE | 2019-06-11 01:32 | NUR ---
Dr Gabriel paged for the second time and called back and gave orders and carried out.
--- NOTE | 2019-06-11 02:13 | NUR ---
LORAZEPAM 2 MG IM AND BENADRYL 25 MG IM GIVEN TO RIGHT AND LEFT DELTOIDS CONSECUTIVELY. IVF IS OFF PATIENT WILL NOT ALLOW IV REINSERTION
--- NOTE | 2019-06-11 06:20 | NUR ---
ASLEEP BUT AROUSABLE.O SHOUTING NOTED, STILL REFUSED IV REINSERTION.
[2019-06-11] MEDS: LevALBUTEROL HCL 1.25 MG/0.5 ML *CONC.* VIAL.NEB (XOPENEX CONC.) INH SCH ×3 (07:00→23:00)
--- NOTE | 2019-06-11 07:30 | NUR ---
am ROUNDS: Patient is asleep when received. Per jake MAY, patient has no IV access and refused re insertion. Safety precautions in place.
[2019-06-11] MEDS: FERROUS SULFATE 325 MG TABLET.DR PO SCH ×2 (09:47→21:25)
[2019-06-11] MEDS: NICOTINE 21 MG/24 HR PATCH.TD24 TD SCH (09:47)
[2019-06-11] MEDS: LITHIUM CARBONATE 300 MG TABLET.SA PO SCH ×2 (09:48→21:25)
[2019-06-11] MEDS: ATORVASTATIN 10 MG TABLET PO SCH (09:48)
[2019-06-11] MEDS: QUEtiapine FUMARATE 25 MG TABLET PO SCH ×3 (09:48→21:25)
[2019-06-11] MEDS: MULTIVITS,CA,MINERALS/IRON/FA 1 TABLET PO SCH (09:48)
--- NOTE | 2019-06-11 09:50 | NUR ---
AM meds: Patient refused to take meds. Only nicotine patch was administered.
[2019-06-11 09:51] VITALS: BP_SYST 106
[2019-06-11] MEDS: LOSARTAN POTASSIUM 50 MG TABLET (COZAAR) PO SCH ×2 (09:51→21:26)
[2019-06-11] MEDS: CLOPIDOGREL BISULFATE 75 MG TABLET PO SCH (09:51)
[2019-06-11 12:00] VITALS: BP_SYST 98
--- NOTE | 2019-06-11 14:50 | NUR ---
Ortho rounds: Seen by Dr. Valle. MD will call family and discuss with them.
--- NOTE | 2019-06-11 14:56 | NUR ---
DC Planning: per dr. Iverson: he will verify with ortho for surgery plan. If no surgery the pt can go back to [facility]. Per LALO Javed: dr. Valle came in for evaluation today, he will discuss with family with surgery options. (See LALO Javed's note).
--- NOTE | 2019-06-11 16:30 | NUR ---
IV START ATTEMPT: Attempts to start IV were not successful. Patient was uncooperative. MD was notified last night by night RN.
[2019-06-11 16:46] VITALS: BP_SYST 126
[2019-06-11] MEDS: GENTAMICIN SULFATE 400 MG in NS 100 ML IV SCH (17:00)
--- NOTE | 2019-06-11 18:05 | NUR ---
End of shift: Needs attended. Patient is calm this time. No change in assessment.
--- NOTE | 2019-06-11 19:13 | NUR ---
Paged Dr. Gabriel s/w Tiago
--- NOTE | 2019-06-11 19:18 | NUR ---
OPENING NOTES RECEIVED PATIENT IN BED AWAKE/CONFUSED INTERMITTENT YELLING/SCREAMING KEEPS TALKING TO SELF. BREATHING UNLABORED ON ROOM AIR. FALL PRECAUTIONS IN PLACED. BED IN LOWEST LOCKED POSITION.
[2019-06-11 21:24] VITALS: BP_SYST 109
--- NOTE | 2019-06-11 21:26 | NUR ---
MED PASS PATIENT DUE MEDICATIONS GIVEN AND TOLERATED. VITAL SIGNS STABLE. HS SNACK PROVIDED. PATIENT REFUSING IV INSERTION.
[2019-06-11] MEDS: ENOXAPARIN SODIUM 40 MG/0.4 ML SYRINGE SUBCUT SCH (21:28)
[2019-06-12 00:20] VITALS: BP_SYST 106
--- NOTE | 2019-06-12 01:30 | NUR ---
ROUNDS PATIENT AWAKE WRITING NOTES ON HER NOTEBOOK. DENIES PAIN. VITAL SIGNS STABLE.
--- NOTE | 2019-06-12 03:19 | NUR ---
ROUNDS PATIENT AWAKE STILL WRITING NOTES. NO DISTRESS NOTED.
--- NOTE | 2019-06-12 05:13 | NUR ---
ROUNDS PATIENT RESTING IN BED EYES CLOSED. NO DISTRESS NOTED.
--- NOTE | 2019-06-12 05:30 | NUR ---
AM CARE INCONTINENCE CARE DONE. ALL LINENS CHANGED. PATIENT UNCOOPERATIVE SCREAMING/YELLING AND HITTING STAFF DURING CARE.
--- NOTE | 2019-06-12 06:22 | NUR ---
CLOSING NOTES PATIENT NEEDS ATTENDED. CONDITION UNCHANGED. PATIENT STILL REFUSING IV LINE INSERTION.
[2019-06-12] MEDS ORDERED: DIPHENHYDRAMINE INJ 50 MG/ML VIAL IM SCH (06:30)
[2019-06-12] MEDS ORDERED: LORazepam 2 MG/ML VIAL IM SCH (06:30)
--- NOTE | 2019-06-12 06:30 | NUR ---
MD ROUNDS: DR TIAN IS MAKING ROUNDS, HEARD PT IS BRANDYAMING , ORDERED ATIVAN 1 MG IM X1 AND BENADRYL 50 MG IM X 1. ORDER ENTERED AND NOTIFIED PRIMARY RN
[2019-06-12] MEDS: LITHIUM CARBONATE 300 MG TABLET.SA PO SCH ×3 (06:45→14:47)
[2019-06-12] MEDS: LevALBUTEROL HCL 1.25 MG/0.5 ML *CONC.* VIAL.NEB (XOPENEX CONC.) INH SCH ×2 (07:30→15:00)
--- NOTE | 2019-06-12 07:50 | NUR ---
OPENING NOTE RECEIVED PATIENT FROM ALARM SECURITY OR SURVEILLANCE MONITOR. PATIENT SITTING UP IN BED GIVING SUPERVISOR POLISHING A HARD TIME. ASSISTED WITH REPOSITIONING FOR BREAKFAST, RUTHIE WELL. DENIES PAIN. ROOM AIR. NO ACUTE DISTRESS. NO SOB. RESPIRATION EVEN AND UNLABORED. SKIN WARM AND DRY TO TOUCH. ABLE TO MOVE ALL TOES AND FEEL SENSATION. BED IN LOW AND LOCKED POSITION. SIDERAIL UPX3. BED ALARM ON. ROOM NEAR NURSES STATION. CONT ON CONTACT PRECAUTION. CONT TO MONITOR
[2019-06-12 08:19] VITALS: BP_SYST 111
[2019-06-12] MEDS: NICOTINE 21 MG/24 HR PATCH.TD24 TD SCH (08:57)
[2019-06-12] MEDS: ATORVASTATIN 10 MG TABLET PO SCH (08:58)
[2019-06-12] MEDS: FERROUS SULFATE 325 MG TABLET.DR PO SCH ×2 (08:58→21:45)
[2019-06-12] MEDS: LOSARTAN POTASSIUM 50 MG TABLET (COZAAR) PO SCH ×2 (08:58→21:45)
[2019-06-12] MEDS: QUEtiapine FUMARATE 25 MG TABLET PO SCH ×2 (08:58→17:50)
[2019-06-12] MEDS: clonazePAM 0.5 MG TABLET PO SCH ×3 (08:58→21:45)
[2019-06-12] MEDS: MULTIVITS,CA,MINERALS/IRON/FA 1 TABLET PO SCH (09:00)
[2019-06-12] MEDS: CLOPIDOGREL BISULFATE 75 MG TABLET PO SCH (09:00)
--- NOTE | 2019-06-12 09:00 | NUR ---
MEDS ALL DUE MEDS ADMINISTERED ORDERED, RUTHIE WELL. TEACHING DONE ON MEDICATION AND ASE. PATIENT IS BEING LOUD AND REFUSE TO LOWER VOICE.
--- NOTE | 2019-06-12 10:57 | NUR ---
MADIHA ABRAHAM WAS CALLED, RE: REMIND HIM TO CALL THE MOTHER OF THE PT ON HIS PLAN OF CARE. SPOKE TO JOHN.
[2019-06-12 12:00] VITALS: BP_SYST 115; BP_SYST 125
[2019-06-12] MEDS ORDERED: LORazepam 2 MG/ML VIAL IM ONE (12:00)
[2019-06-12] MEDS ORDERED: DIPHENHYDRAMINE INJ 50 MG/ML VIAL IM ONE (12:00)
--- NOTE | 2019-06-12 12:02 | NUR ---
NOTE PATIENT DENIES PAIN/DISCOMFORT. PATIENT IS BEING LOUD AND YELLING AT NURSES AND DOCTORS PASSING BY IN THE HALLWAY. ATTEMPTED TO CALM PATIENT DOWN AND PATIENT BECAME HOSTILE. BENADRYL AND ATIVAN ADMINISTERED ORDERED, RUTHIE WELL; CHARGE NURSE AWARE. CONT TO MONITOR
--- NOTE | 2019-06-12 14:48 | NUR ---
MEDS PATIENT IS YELLING IN ROOM. TELLING NURSES TO GET OUT. PATIENT REFUSE MEDICATIONS DUE AT 1500; WILL ATTEMPT AGAIN. PATIENT DENIES PAIN/DISCOMFORT. CONTINUE TO MONITOR
[2019-06-12] MEDS: GENTAMICIN SULFATE 400 MG in NS 100 ML IV SCH (15:39)
--- NOTE | 2019-06-12 15:46 | NUR ---
meds PATIENT CONT TO REFUSE MEDS FOR 1500; TELLING NURSES TO LEAVE THE ROOM AND CURSING AT STAFF. CONT TO MONITOR
[2019-06-12 16:00] VITALS: BP_SYST 115
--- NOTE | 2019-06-12 16:42 | NUR ---
Nutrition F/U RD reviewed pt's current EMR record including diet Hx, physician notes, nursing notes, pertinent labs/meds/procedures, care trends, and care activity. Admission Dx: L hip dislocation, supraventricular tachycardia PMH: HTN, HLD, COPD, bipolar disorder per physician notes. Pt failed L hip closed reduction Sx 06/06/19 per EMR Current Diet Order/Nutrition Support: Mechanical soft, Ensure Enlive TID x5 days Subjective Info: Per EMR, PO intake average of 45% average x11. Pt has been hostile and yelling, as well as refusing meds throughout the day per EMR. Pt is not meeting optimal nutritional needs. Skin Integrity Comment: Robb scale: 15; per Tray Drier note 06/06/19: 1. Sacral area: Scar tissue with dry flaky skin and erythema from IAD, present on admission. 2. Buttocks/Perianal area: Erythema from IAD, present on admission. 3. Bilateral Inguinal areas: Erythema from IAD, present on admission. Estimated Energy Expenditure (kcals/day) 5333-1121 kcal/day (25-30 kcal/kg CBW for maintenance) Estimated Protein Required (g/day) 64-77 gm/day (1-1.2 gm/kg CBW for maintenance) Estimated Fluid Required (l/day) 1.6-2 L/day (1 ml/kcal/day for maintenance) Problem/Etiology/Signs/Symptoms Suboptimal nutritional intakes related to possible lack of appetite associated w/ cognitive limitations as evidenced by unsteady PO intake records. *ongoing Expected Outcomes/Goals - Monitor appetite and PO intakes w/ goal of pt meeting at least 75% of estimated nutritional needs, labs trending WNL, normal GI function, and skin integrity/wt maintenance Dietitian Recommendations * Recommend continuing mechanical soft diet w/ Ensure Enlive TID (ONS provides 1050 kcal/day, 60 gm protein/day) * Encourage increase PO intakes Follow Up Moderate Risk: F/U in 3-5 days
--- NOTE | 2019-06-12 16:46 | NUR ---
Dietitian Recommendations * Recommend continuing mechanical soft diet w/ Ensure Enlive TID (ONS provides 1050 kcal/day, 60 gm protein/day) * Encourage increase PO intakes LP, RD Please refer to Nutrition F/U for details.
--- NOTE | 2019-06-12 18:48 | NUR ---
PAGED REGARDING LITHIUM LVL 2.97; AWAITING CALL BACK
--- NOTE | 2019-06-12 18:56 | NUR ---
SPOKE TO AND REPORTED LITHIUM 2.97 RECEIVED ORDER TO STOP LITHOBID AND ORDER LITHIUM LVL FOR TOMORROW AM; ORDER RECEIVED, VERIFIED AND CARRIED OUT
--- NOTE | 2019-06-12 19:05 | NUR ---
OPENING NOTES Bedside report received from dayshift nurse. Patient received lying in bed, sleeping. No s/s of acute distress noted. Breathing even and unlabored. HOB raised. Bed alarm on. Bed is locked and at lowest position. Will continue to monitor.
--- NOTE | 2019-06-12 19:23 | NUR ---
CLOSING NOTE PATIENT RESTING IN BED, EASILY AROUSABLE. NO S/SX PAIN. NO ACUTE DISTRESS. SKIN WARM AND DRY TO TOUCH. ALL NEEDS MET. BED IN LOW AND LOCKED POSITION. SIDERAIL UPX3. BED ALARM ON. ROOM NEAR NURSES STATION. ENDORSED TO GUERRERO MAY.
[2019-06-12 20:00] VITALS: BP_SYST 109
[2019-06-12] MEDS ORDERED: QUEtiapine FUMARATE 100 MG TABLET PO SCH (21:00)
--- NOTE | 2019-06-12 21:05 | NUR ---
DR IVERSON BEDSIDE Dr. Iverson at bedside, assessed patient. requested to have Dr. Valle paged again and reminded to call patient's POC for consent for surgery. Will page patient's mother again.
--- NOTE | 2019-06-12 21:06 | NUR ---
Paged Dr. Damon [phone], s/w Hortensia
[2019-06-12] MEDS: ENOXAPARIN SODIUM 40 MG/0.4 ML SYRINGE SUBCUT SCH (21:46)
--- NOTE | 2019-06-12 23:00 | NUR ---
INCONTINENT CARE Patient cleaned at this time by REST ROOM ATTENDANT and administrative support assistant. Patient tolerated well. All needs met. No s/s acute distress. Bed alarm on. Bed locked and at lowest position. Will continue to monitor.
[2019-06-13] VITALS (7 sets, daily range): BP systolic 109–134
--- NOTE | 2019-06-13 01:00 | NUR ---
ROUNDS Patient in bed asleep at this time. No signs of discomfort noted. Chest rise and fall even bilaterally. Bed alarm on. Bed is locked and at lowest position. Will continue to monitor.
--- NOTE | 2019-06-13 03:00 | NUR ---
ROUNDS Patient asleep at this time. NO s/s of acute distress noted. Breathing even and unlabored. Bed alarm on. Will continue to monitor.
[2019-06-13] MEDS: KCL 20 mEq in D5/0.45NS 1000mL 1,000 ML IV SCH (04:20)
--- NOTE | 2019-06-13 05:00 | NUR ---
ROUNDS Patient sleeping at this time. No signs of discomfort noted. Chest rise and fall even bilaterally. Bed alarm on. Will continue to monitor.
--- NOTE | 2019-06-13 06:38 | NUR ---
CLOSING NOTES Patient in bed, asleep at this time. No s/s of acute distress noted. Breathing even and unlabored. HOB slightly raised. All needs met throughout shift. Fall, safety, and isolation precautions maintained throughout shift. Will continue to monitor until patient care is endorsed to oncoming dayshift nurse.
[2019-06-13] MEDS: LevALBUTEROL HCL 1.25 MG/0.5 ML *CONC.* VIAL.NEB (XOPENEX CONC.) INH SCH ×3 (07:00→23:00)
--- NOTE | 2019-06-13 08:00 | NUR ---
Note Pt assisted in sitting up in bed to eat breakfast. No SOB/resp distress or severe pain/discomfort was noted at this time. No IV in at this time. Pt refuses to have one inserted. Pt next to nurses' station for close observation for needs and care. Call light within reach.
[2019-06-13] MEDS: CLOPIDOGREL BISULFATE 75 MG TABLET PO SCH (08:48)
[2019-06-13] MEDS: LOSARTAN POTASSIUM 50 MG TABLET (COZAAR) PO SCH ×2 (08:49→21:00)
[2019-06-13] MEDS: QUEtiapine FUMARATE 25 MG TABLET PO SCH ×2 (08:49→21:00)
[2019-06-13] MEDS: ATORVASTATIN 10 MG TABLET PO SCH ×2 (08:49→09:00)
[2019-06-13] MEDS: FERROUS SULFATE 325 MG TABLET.DR PO SCH ×2 (08:49→21:00)
[2019-06-13] MEDS: MULTIVITS,CA,MINERALS/IRON/FA 1 TABLET PO SCH (08:49)
[2019-06-13] MEDS: NICOTINE 21 MG/24 HR PATCH.TD24 TD SCH (08:49)
[2019-06-13] MEDS: clonazePAM 0.5 MG TABLET PO SCH ×3 (08:49→21:00)
[2019-06-13] MEDS: GENTAMICIN SULFATE 400 MG in NS 100 ML IV SCH (10:19)
--- NOTE | 2019-06-13 12:00 | NUR ---
Note Pt has been yelling loudly and shouting, will not calm down and resists any attempts to talk to her or distractions. Pt very confused and uncooperative in taking PO medications. Pt does fall asleep off and on all shift. Call light within reach.
--- NOTE | 2019-06-13 13:42 | NUR ---
Discharge Planning: DCP faxed pt referral to [facility] (f [phone] p [phone]) DCP to follow up Addendum: 06/13/19 at 1603 by Tiara King DP DCP followed up with Lee Ann (c [phone]) at [facility] (f [phone] p [phone]) if patient discharging Sunday or Sunday please call [facility]. Patient will go to [facility].
--- NOTE | 2019-06-13 15:30 | NUR ---
Note Pt ate some of her lunch and fell asleep. Assisted in sitting up in bed so she can watch television. No pain/SOB noted. Pt does move up and down in bed independently and able to furniture mover helper her legs independently - slowly and slightly. Call light within reach.
--- NOTE | 2019-06-13 18:40 | NUR ---
Note Pt in bed eating her dinner. No SOB/resp distress or pain/discomfort was noted. Pt next to nurses' station for close observation. Dr Iverson was on the floor at 1700 and assessment was completed at this time. No needs noted. Pt was checked on q1' and PRN all shift for needs and care. Call light within reach.
--- NOTE | 2019-06-13 19:15 | NUR ---
change of shift.pt.presents quiescent affect;calm,somnolent.general status stable.respiratory status stable.call light/telephone w/in reach of the pt.
--- NOTE | 2019-06-13 20:00 | NUR ---
pt.assessed.v/s assessed.values w/in normal limits.pt.presents affect;restless/aggressive.loc;confused.pt.assessed for cleanliness. pt.repositioned.call light/telephone placed w/in reach of the pt.
[2019-06-13] MEDS: QUEtiapine FUMARATE 100 MG TABLET PO SCH (21:00)
[2019-06-13] MEDS: ENOXAPARIN SODIUM 40 MG/0.4 ML SYRINGE SUBCUT SCH (21:00)
--- NOTE | 2019-06-13 21:00 | NUR ---
2100pmedications not administered pt.has refused the administration of the medications.pt.presents affect;restless/aggressive.
[2019-06-13] MEDS ORDERED: HALOPERIDOL 5 MG TABLET (HALDOL) JT ONE (22:00)
--- NOTE | 2019-06-13 22:00 | NUR ---
pt.assessed.pt.presents affect;restless/aggressive;security paged.present.pt.remained in bed. paged re;pt's affect/status change.
[2019-06-13] MEDS ORDERED: HALOPERIDOL LACTATE 5 MG/ML VIAL IM SCH (22:15)
--- NOTE | 2019-06-13 22:45 | NUR ---
returned the page.i have apprised the of the pt's status. has ordered haldol:5mg im x1.
[2019-06-13] MEDS ORDERED: LORazepam 2 MG/ML VIAL IM SCH (23:00)
[2019-06-13] MEDS ORDERED: DIPHENHYDRAMINE INJ 50 MG/ML VIAL IM SCH (23:00)
--- NOTE | 2019-06-13 23:15 | NUR ---
returned the page.dr coburn apprised of the pt's status. has ordered haldol;5mg inm x1. present. assessed the pt. has ordered;ativan;2mg im/benadryl;50mg im. i have administered haldol:5mg,im,ativan:2mg im,benadryl:50mg im.to re-assess the efficacy of the medications.
[2019-06-14] VITALS: BP_SYST 113
--- NOTE | 2019-06-14 | NUR ---
pt.assessed v/s assessed;values w/in normal limits.pt.assessed for cleanliness.pt.repositioned.general status stable.respiratory status stable. call light/telephone placed w/in reach of the pt.
--- NOTE | 2019-06-14 02:00 | NUR ---
pt.assessed.pt.assessed for cleanliness.pt.repositioned.pt.presents quiescent affect;calm,somnolent.general status stable. respiratory status stable. call light/telephone placed w/in reach of the pt.
--- NOTE | 2019-06-14 04:00 | NUR ---
pt.assessed.pt.assessed for cleanliness.pt.repositioned.pt.presents quiescent affect;calm,.somnolent.general status stable. respiratory status stable. call light/telephone placed w/in reach of the pt.
--- NOTE | 2019-06-14 05:54 | NUR ---
pt.assessed.pt.presents quiescent affect;calm,somnolent.pt.assessed for cleanliness.pt.repositioned.call light/telephone placed w/in reach of the pt.
[2019-06-14] MEDS: LevALBUTEROL HCL 1.25 MG/0.5 ML *CONC.* VIAL.NEB (XOPENEX CONC.) INH SCH ×3 (07:00→23:00)
[2019-06-14 08:00] VITALS: BP_SYST 112
--- NOTE | 2019-06-14 08:00 | NUR ---
RN INITIAL NOTES RECEIVED PATIENT IN BED AWAKE AND NON STOP TALKING, NO DISTRESS, RESP EVEN AND UNLABORED , RESPONDS TO QUESTIONS BUT CONTINOUSLY TALKING, DENIED ANY PAIN AT THIS TIME , REFUSED IV REINSERTION , AM MEDS TAKEN
[2019-06-14] MEDS: CLOPIDOGREL BISULFATE 75 MG TABLET PO SCH (08:26)
[2019-06-14] MEDS: clonazePAM 0.5 MG TABLET PO SCH ×4 (08:26→20:22)
[2019-06-14] MEDS: QUEtiapine FUMARATE 25 MG TABLET PO SCH ×2 (08:26→20:22)
[2019-06-14] MEDS: FERROUS SULFATE 325 MG TABLET.DR PO SCH ×2 (08:29→20:23)
[2019-06-14] MEDS: ATORVASTATIN 10 MG TABLET PO SCH (08:29)
[2019-06-14] MEDS: MULTIVITS,CA,MINERALS/IRON/FA 1 TABLET PO SCH (08:29)
[2019-06-14] MEDS: NICOTINE 21 MG/24 HR PATCH.TD24 TD SCH (08:29)
[2019-06-14] MEDS: LOSARTAN POTASSIUM 50 MG TABLET (COZAAR) PO SCH ×2 (08:31→20:22)
[2019-06-14] MEDS: KCL 20 mEq in D5/0.45NS 1000mL 1,000 ML IV SCH (08:31)
--- NOTE | 2019-06-14 10:00 | NUR ---
ROUNDS PATIENT AWAKE AND DRINKING HER JUICE DENIES ANY PAIN , STILL CONFUSED
[2019-06-14 12:00] VITALS: BP_SYST 105
[2019-06-14] MEDS ORDERED: NITROFURANTOIN MONOHYD/M-CRYST 100 MG CAPSULE PO ONE (12:00)
--- NOTE | 2019-06-14 12:00 | NUR ---
DR DUVAL /DR ASMITA BYRD CAME AND INFORMED PATIENT WITH NO IV ACCESS PATIENT WAS INSERTED AND PULLED IT 3 X LAST NIGHT AND TODAY PATIENT SAID NO , SAID ITS OK WILL CHANGE MED ATB TO PO, DR TIAN INFORMED PATIENT STILL NO PROLIXIN STILL WAITING FOR THE FAMILY TO BRING MEDS TODAY
--- NOTE | 2019-06-14 14:00 | NUR ---
STILL TALKING PATIENT TALKS A LOT AND WITH NON STOP CONVERSATION CLAIMING SHE IS SELF RESPONSIBLE
[2019-06-14] MEDS: GENTAMICIN SULFATE 400 MG in NS 100 ML IV SCH (16:37)
[2019-06-14 16:48] VITALS: BP_SYST 117
--- NOTE | 2019-06-14 17:00 | NUR ---
PROLTIMOTHY SPOKE WITH PATIENT MOM AND PER ALEC SHE HAS NO PROLIXIN ADN THAT SHE IS WAITING FOR DR TIAN TO SEND THE RX TOT HE PHARMACY SO DHE COULD PICK THE MEDICINE, INFORMED MOM THAT I WILL CALL DR TIAN FOR THE MIS. UNDERSTANDING , OF THE PROLIXIN ORDER
--- NOTE | 2019-06-14 18:28 | NUR ---
ENDORSEMENT WILL ENDORSE TO NEXT SHIFT CONT CARE , PATIENT NOT IN ANY DISTRESS, MACROBID WAS GIVEN AND NO SIGN OF DELAYED REACTION , STILL NO IV ACCESS , PATIENT SAID NO I DONT NEED IV IM SELF RESPONSIBLE AND CAN DECIDE FOR MY SELF, WISH RESPECTED INFORMED MOM ALEC, LEFT MESSAGE WITH DR TIAN REGARDING PROLIXIN AND WILL INFORM MOM WHEN SHE CALLED BACK, FOR NOW PATIENT SAFETY ENSURED , NO COMPLAIN OF PAIN THE WHOLE SHIFT
--- NOTE | 2019-06-14 19:30 | NUR ---
OPENING NOTE PATIENT IS RESTING IN BED AND STABLE. NO S/S OF RESPIRATORY DISTRESS NOTED. PATIENT VERBALIZES NO PAIN. PLAN OF CARE IS DISCUSSED WITH PATIENT AT THIS TIME. PATIENT CONTINUES TO REFUSE HAVING IV INSERTED DESPITE EDUCATION. FALL, SAFETY, ASPIRATION, RESPIRATORY, AND CONTACT PRECAUTIONS WILL BE IN PLACE THROUGHOUT THE SHIFT.
[2019-06-14 20:00] VITALS: BP_SYST 122
[2019-06-14] MEDS: NITROFURANTOIN MONOHYD/M-CRYST 100 MG CAPSULE PO SCH (20:22)
[2019-06-14] MEDS: QUEtiapine FUMARATE 100 MG TABLET PO SCH (20:22)
[2019-06-14] MEDS: ENOXAPARIN SODIUM 40 MG/0.4 ML SYRINGE SUBCUT SCH (20:28)
--- NOTE | 2019-06-14 20:28 | NUR ---
MED PASS PT COOPERATIVE AT THIS TIME, PT TOOK SCHEDULED MEDICATIONS ORDERED. MEDICATION ACTIONS AND POTENTIAL SIDE EFFECTS EXPLAINED, PT CONFUSED AND DID NOT VERBALIZE UNDERSTANDING. PT GIVEN SUGAR-FREE JELLO AND PUDDING PER REQUEST, WELL ORANGE JUICE. PT DENIES FURTHER NEEDS. SAFETY MAINTAINED. WILL MONITOR.
--- NOTE | 2019-06-14 22:15 | NUR ---
INCONTINENCE CARE PT INCONTINENT OF URINE. INCONTINENCE CARE RENDERED BY VICENTE WHEAT. PT COOPERATIVE. NO S/S OF DISTRESS. SAFETY MAINTAINED. WILL MONITOR.
--- NOTE | 2019-06-15 00:20 | NUR ---
SLEEPING PT RESTING IN BED, NO S/S OF ACUTE DISTRESS, AROUSES TO TACTILE STIMULI. BREATHING IS EVEN AND UNLABORED TO ROOM AIR. SAFETY AND FALL PRECAUTIONS ARE IN PLACE. WILL MONITOR.
[2019-06-15 01:15] VITALS: BP_SYST 92
--- NOTE | 2019-06-15 02:35 | NUR ---
RN ROUNDS: PT RESTING IN BED, NO S/S OF ACUTE DISTRESS, AROUSES TO TACTILE STIMULI. NO S/S OF PAIN OR DISCOMFORT. BREATHING IS EVEN AND UNLABORED TO ROOM AIR. SAFETY AND FALL PRECAUTIONS ARE IN PLACE. WILL MONITOR.
--- NOTE | 2019-06-15 04:15 | NUR ---
SLEEPING PT RESTING IN BED, NO S/S OF ACUTE DISTRESS, PT AROUSES TO TACTILE STIMULI. BREATHING IS EVEN AND UNLABORED TO ROOM AIR. SAFETY AND FALL PRECAUTIONS ARE IN PLACE. WILL MONITOR.
[2019-06-15] MEDS: KCL 20 mEq in D5/0.45NS 1000mL 1,000 ML IV SCH ×2 (04:20→17:40)
--- NOTE | 2019-06-15 06:30 | NUR ---
CLOSING NOTE PATIENT IS RESTING IN BED AND STABLE. NO S/S OF RESPIRATORY DISTRESS NOTED. PATIENT VERBALIZES NO PAIN. PLAN OF CARE IS DISCUSSED WITH PATIENT AT THIS TIME. PATIENT CONTINUES TO REFUSE HAVING IV INSERTED DESPITE EDUCATION. PT RELATIVELY CALM THROUGHOUT SHIFT, ONLY SHORT-LIVED PERIODS OF YELLING. FALL, SAFETY, ASPIRATION, RESPIRATORY, AND CONTACT PRECAUTIONS WILL BE IN PLACE THROUGHOUT THE SHIFT. WILL CONTINUE TO MONITOR UNTIL PT CARE IS ENDORSED TO DAY SHIFT RN.
[2019-06-15] MEDS: LevALBUTEROL HCL 1.25 MG/0.5 ML *CONC.* VIAL.NEB (XOPENEX CONC.) INH SCH ×3 (07:00→23:00)
--- NOTE | 2019-06-15 07:20 | NUR ---
INITIAL NOTE PT RESTING QUIETLY IN BED. NO ACUTE DISTRESS NOTED, BREATHING EVEN AND UNLABORED. NO IV ACCESS, PT REFUSING IV ACCESS, MD AWARE. CALL LIGHT WITHIN REACH, BED IN LOW AND LOCKED POSITION WITH BED ALARM ON.
[2019-06-15 07:21] LABS: BASOPHILS % (AUTO) 1.2 % (0.0-2.0); CALCIUM 9.6 mg/dL (8.4-11.0); CREATININE 0.54 mg/dL (0.55-1.30); EOSINOPHILS # (AUTO) 0.2 K/uL (0.0-0.4); EOSINOPHILS % (AUTO) 6.5 % (0.0-4.0); HEMATOCRIT 36.1 % (36-48); HEMOGLOBIN 11.7 g/dL (12.0-16.0); LYMPHOCYTES # (AUTO) 1.1 K/uL (1.0-5.5); LYMPHOCYTES % (AUTO) 30.6 % (20.5-51.5); MEAN CORPUSCULAR HEMOGLOBIN 32 pg (27-31); MEAN CORPUSCULAR HGB CONC 32 % (32-36); MEAN CORPUSCULAR VOLUME 99 fL (79.0-98.0); MONOCYTES # (AUTO) 0.3 K/uL (0.0-1.0); MONOCYTES % (AUTO) 8.7 % (1.7-9.3); NEUTROPHILS # (AUTO) 1.9 K/uL (1.8-7.7); PLATELET COUNT (AUTO) 223 K/uL (130-430); POTASSIUM 4.1 mmol/L (3.5-5.1); RED BLOOD CELL COUNT(AUTO) 3.64 MIL/uL (4.2-6.2); RED CELL DISTRIBUTION WIDTH 17.1 % (9.0-15.0); WHITE BLOOD COUNT (AUTO) 3.6 K/uL (4.8-10.8)
[2019-06-15 08:00] VITALS: BP_SYST 99
[2019-06-15] MEDS: LOSARTAN POTASSIUM 50 MG TABLET (COZAAR) PO SCH ×2 (09:00→20:18)
--- NOTE | 2019-06-15 09:30 | NUR ---
RN ROUNDS PT AWAKE, WRITING IN NOTE BOOK. NO ACUTE DISTRESS NOTED, BREATHING EVEN AND UNLABORED. WILL CONTINUE TO MONITOR.
[2019-06-15] MEDS: FERROUS SULFATE 325 MG TABLET.DR PO SCH ×2 (09:34→20:18)
[2019-06-15] MEDS: clonazePAM 0.5 MG TABLET PO SCH ×4 (09:34→20:17)
[2019-06-15] MEDS: QUEtiapine FUMARATE 25 MG TABLET PO SCH ×2 (09:34→20:18)
[2019-06-15] MEDS: CLOPIDOGREL BISULFATE 75 MG TABLET PO SCH (09:34)
[2019-06-15] MEDS: NITROFURANTOIN MONOHYD/M-CRYST 100 MG CAPSULE PO SCH ×2 (09:34→20:17)
[2019-06-15] MEDS: ATORVASTATIN 10 MG TABLET PO SCH (09:34)
[2019-06-15] MEDS: NICOTINE 21 MG/24 HR PATCH.TD24 TD SCH (09:34)
[2019-06-15] MEDS: MULTIVITS,CA,MINERALS/IRON/FA 1 TABLET PO SCH (09:34)
--- NOTE | 2019-06-15 11:30 | NUR ---
RN ROUNDS PT RESTING QUIETLY, NO ACUTE DISTRESS NOTED, BREATHING EVEN AND UNLABORED.
[2019-06-15 13:13] VITALS: BP_SYST 103
--- NOTE | 2019-06-15 13:30 | NUR ---
RN ROUNDS REMOVED LUNCH TRAY. PT RAISED VOICE, REORIENT PT TO KEEP VOICE DOWN SHE IS IN A HOSPITAL. PT VERBALIZED UNDERSTANDING. PT COOPERATIVE.
--- NOTE | 2019-06-15 15:30 | NUR ---
REFUSED MED PT REFUSING KLONOPIN, PT STATES "IM ALLERGIC, IT AFFECTS MY STOMACH, MY HEART, MY LUNGS." MEDICATION NO ADMINISTERED.
[2019-06-15 16:47] VITALS: BP_SYST 117
[2019-06-15] MEDS: GENTAMICIN SULFATE 400 MG in NS 100 ML IV SCH (17:00)
--- NOTE | 2019-06-15 17:00 | NUR ---
REFUSED IV ACCESS IV MEDICATIONS NO ADMINISTERED. EDUCATED PT ON PURPOSE OF IV ACCESS. PT NON COOPERATIVE AND REFUSING IV ACCESS. WILL TRY AGAIN LATER.
--- NOTE | 2019-06-15 18:53 | NUR ---
CLOSING NOTE PT RESTING QUIETLY IN BED, NO ACUTE DISTRESS NOTED, BREATHING EVEN AND UNLABORED. NO IV ACCESS AVAILABLE, PT REFUSING IV ACCESS, MD AWARE. CALL LIGHT WITHIN REACH, BED IN LOW AND LOCKED POSITION WITH BED ALARM ON. ALL NEEDS MET THROUGHOUT SHIFT. WILL CONTINUE TO MONITOR UNTIL PT CARE IS ENDORSED TO CROWNING INSPECTOR RN.
[2019-06-15 20:00] VITALS: BP_SYST 112
[2019-06-15] MEDS: QUEtiapine FUMARATE 100 MG TABLET PO SCH (20:18)
[2019-06-15] MEDS: ENOXAPARIN SODIUM 40 MG/0.4 ML SYRINGE SUBCUT SCH (20:19)
--- NOTE | 2019-06-15 20:19 | NUR ---
MEDICATION PASS PT COOPERATIVE AT THIS TIME, PT TOOK SCHEDULED MEDICATIONS ORDERED. MEDICATION ACTIONS AND POTENTIAL SIDE EFFECTS EXPLAINED, PT CONFUSED AND DID NOT VERBALIZE UNDERSTANDING. PT RAMBLING NON-COHERENTLY. PT GIVEN SUGAR-FREE JELLO AND ORANGE JUICE PER REQUEST. PT DENIES FURTHER NEEDS, CONTINUES TALKING TO HERSELF CALMLY. SAFETY MAINTAINED. WILL MONITOR.
--- NOTE | 2019-06-16 00:45 | NUR ---
RN NOTE: PT AWAKE, RESTING IN BED, TALKING TO HERSELF. NO S/S OF ACUTE DISTRESS. BREATHING IS EVEN AND UNLABORED TO ROOM AIR. SAFETY PRECAUTIONS MAINTAINED. WILL MONITOR.
[2019-06-16 01:27] VITALS: BP_SYST 116
--- NOTE | 2019-06-16 02:40 | NUR ---
SNACK PT GIVEN JELLO AND PUDDING PER REQUEST. PT DENIES FURTHER NEEDS AT THIS TIME. NO S/S OF ACUTE DISTRESS. SAFETY PRECAUTIONS ARE IN PLACE. WILL MONITOR.
[2019-06-16] MEDS: KCL 20 mEq in D5/0.45NS 1000mL 1,000 ML IV SCH (05:25)
--- NOTE | 2019-06-16 05:25 | NUR ---
INCONTINENCE CARE RENDERED BY BONI ZHANG. PT COOPERATIVE.
--- NOTE | 2019-06-16 05:45 | NUR ---
DILAUDID/ZOFRAN PT GIVEN DILAUDID FOR SEVERE PAIN AND ZOFRAN FOR NAUSEA. MEDICATIONS EXPLAINED TO PT. PT RESTING IN BED, PT'S FATHER IS AT BEDSIDE. NO S/S OF ACUTE DISTRESS. SAFETY MAINTAINED. WILL MONITOR. Addendum: 06/16/19 at 0757 by Sophie Porter RN PLEASE DISREGARD: WRONG PATIENT.
[2019-06-16] MEDS: LevALBUTEROL HCL 1.25 MG/0.5 ML *CONC.* VIAL.NEB (XOPENEX CONC.) INH SCH ×3 (07:00→23:00)
--- NOTE | 2019-06-16 07:20 | NUR ---
CLOSING NOTE PATIENT IS RESTING IN BED AND STABLE. NO S/S OF RESPIRATORY DISTRESS NOTED. PATIENT VERBALIZES NO PAIN. PLAN OF CARE IS DISCUSSED WITH PATIENT AT THIS TIME. PATIENT CONTINUES TO REFUSE HAVING IV INSERTED DESPITE EDUCATION. PT RELATIVELY CALM THROUGHOUT SHIFT, ONLY SHORT-LIVED PERIODS OF YELLING. FALL, SAFETY, ASPIRATION, RESPIRATORY, AND CONTACT PRECAUTIONS WILL BE IN PLACE THROUGHOUT THE SHIFT. CARE IS ENDORSED TO DAY SHIFT RN.
--- NOTE | 2019-06-16 07:25 | NUR ---
AM ROUNDS: PATIENT AWAKE DURING ROUNDS. BEDSIDE REPORT GIVEN BY NIGHT NURSE SISSY. CONTACT ISOLATION PRECAUTION RENDERED.NO IV ACCESS-MD AWARE. NO ACUTE DISTRESS THIS TIME.SAFETY PRECAUTION RENDERED WELL.
[2019-06-16 07:48] LABS: BASOPHILS # (AUTO) 0.1 K/uL (0.0-0.2); BASOPHILS % (AUTO) 0.8 % (0.0-2.0); EOSINOPHILS # (AUTO) 0.2 K/uL (0.0-0.4); EOSINOPHILS % (AUTO) 3.3 % (0.0-4.0); HEMATOCRIT 44.1 % (36-48); HEMOGLOBIN 14.5 g/dL (12.0-16.0); LYMPHOCYTES # (AUTO) 1.7 K/uL (1.0-5.5); LYMPHOCYTES % (AUTO) 26.6 % (20.5-51.5); MEAN CORPUSCULAR HEMOGLOBIN 33 pg (27-31); MEAN CORPUSCULAR HGB CONC 33 % (32-36); MEAN CORPUSCULAR VOLUME 99 fL (79.0-98.0); MONOCYTES # (AUTO) 0.5 K/uL (0.0-1.0); NEUTROPHILS % (AUTO) 62.3 % (40.0-70.0); PLATELET COUNT (AUTO) 186 K/uL (130-430); RED BLOOD CELL COUNT(AUTO) 4.44 MIL/uL (4.2-6.2); RED CELL DISTRIBUTION WIDTH 16.8 % (9.0-15.0); WHITE BLOOD COUNT (AUTO) 6.5 K/uL (4.8-10.8)
[2019-06-16 07:59] LABS: CALCIUM 10.8 mg/dL (8.4-11.0); CREATININE 0.58 mg/dL (0.55-1.30); POTASSIUM 3.5 mmol/L (3.5-5.1)
--- NOTE | 2019-06-16 09:00 | NUR ---
MED PASS: DUE PO MEDS GIVEN. WELL TOLERATED WITH NO PROBLEM.
[2019-06-16] MEDS: CLOPIDOGREL BISULFATE 75 MG TABLET PO SCH (09:57)
[2019-06-16] MEDS: NITROFURANTOIN MONOHYD/M-CRYST 100 MG CAPSULE PO SCH ×2 (09:57→21:46)
[2019-06-16] MEDS: MULTIVITS,CA,MINERALS/IRON/FA 1 TABLET PO SCH (09:58)
[2019-06-16] MEDS: FERROUS SULFATE 325 MG TABLET.DR PO SCH ×2 (09:58→21:21)
[2019-06-16] MEDS: ATORVASTATIN 10 MG TABLET PO SCH (09:58)
[2019-06-16] MEDS: LOSARTAN POTASSIUM 50 MG TABLET (COZAAR) PO SCH ×2 (09:58→21:00)
[2019-06-16] MEDS: QUEtiapine FUMARATE 25 MG TABLET PO SCH ×2 (09:58→21:21)
[2019-06-16] MEDS: clonazePAM 0.5 MG TABLET PO SCH ×3 (09:58→21:22)
[2019-06-16] MEDS: NICOTINE 21 MG/24 HR PATCH.TD24 TD SCH (09:59)
[2019-06-16] MEDS: GENTAMICIN SULFATE 400 MG in NS 100 ML IV SCH (10:00)
[2019-06-16 10:05] VITALS: BP_SYST 142
--- NOTE | 2019-06-16 12:00 | NUR ---
RN ROUNDS: NO DISTRESS. SLEEPING.
[2019-06-16 12:37] VITALS: BP_SYST 116
--- NOTE | 2019-06-16 14:30 | NUR ---
RN ROUNDS: RESTING. STABLE.
--- NOTE | 2019-06-16 15:48 | NUR ---
Wound Evaluation: Patient evaluated for wound. Robb score 15. Patient was awake, alert, confused, and received in a Miguel Bed with an IsoFlex SCOTTY mattress with low air loss therapy initiated. Patient needs assist to turn in bed secondary to left hip fracture and pain. Skin assessment: 1. Sacral area: Scar tissue with dry flaky skin and erythema from IAD, present on admission. Recommend: Cleanse involved area with mild soap and water. Pat dry. Apply antifungal powder to reddened areas. Perform site care 4 times a day and when necessary for soiling. 2. Buttocks/Perianal area: Erythema from IAD, present on admission. Dry, flaky skin present. 3. Left Buttock: Small area of non-intact skin from MASD. Site has 100% pink tissue. No odor, no drainage. Periwound intact. Dry. Site measures 0.7 cm x 0.5 cm. 4. Left Buttock, inferior to site 3: Small area of non-intact skin from MASD. Site has 100% pink tissue. No odor, no drainage. Periwound intact. Dry. Site measures 0.4 cm x 0.2 cm. Recommend: Cleanse involved areas with mild soap and water. Pat dry. Apply antifungal powder to reddened areas. Perform site care twice a day. Apply Calmoseptine cream to open areas. Perform site care qidp. 5. Bilateral Inguinal areas: Erythema from IAD, present on admission. Recommend: Cleanse involved areas with mild soap and water. Pat dry. Apply antifungal powder to reddened areas. Perform site care twice a day. Recommend: Reposition patient side to side only every 2 hours with pillow wedge pelvic tilt. Elevate, off-load and float bilateral heels with towel rolls (secondary to abductor pillow in place)at all times. Offload pressure areas with pillows for pressure re-distribution. Perform skin care and monitor skin integrity Q shift. Use Calmoseptine cream on moisture susceptible areas QID and PRN for soiling. Maintain patient on low air-loss therapy.
--- NOTE | 2019-06-16 16:10 | NUR ---
RN ROUNDS: NOT IN RESPIRATORY DISTRESS. CONTINUE TO MONITOR.
[2019-06-16 16:31] VITALS: BP_SYST 125
[2019-06-16] MEDS: NYSTATIN 15 GM TOPICAL POWDER TP SCH ×2 (18:16→21:25)
--- NOTE | 2019-06-16 18:30 | NUR ---
CLOSING NOTES: PATIENT CALM THIS TIME. STILL WORKING WITH HER LUNCH TRAY. CALL LIGHT WITH IN REACH. BED LOCKED AT LOWEST POSITION.SAFETY MEASURES RENDERED. NO ACUTE DISTRESS.
--- NOTE | 2019-06-16 19:00 | NUR ---
ORTHO ROUNDS: INFORMED DR ABRAHAM PATIENT'S MOTHER WANTS TO SPEAK TO HIM.DR ABRAHAM HAS THE PATIENT'S MOM PHONE NUMBER.
[2019-06-16 20:00] VITALS: BP_SYST 114
--- NOTE | 2019-06-16 20:00 | NUR ---
A/A/O X1. NO FACIAL GRIMACING NOTED.NO SOB .O2 SAT ON RA 97%.V/S STABLE.AFEBRILE.INSTRUCTED TO USE CALL LIGHT NEEDED;WITHIN REACH.
[2019-06-16] MEDS: ENOXAPARIN SODIUM 40 MG/0.4 ML SYRINGE SUBCUT SCH (21:20)
[2019-06-16] MEDS: QUEtiapine FUMARATE 100 MG TABLET PO SCH (21:21)
--- NOTE | 2019-06-16 22:00 | NUR ---
PM CARE RENDERED WITH FORMING ROLL OPERATOR.NYSTATIN POWDER APPLIED TO PERIANAL AREA. REPOSITIONED FOR COMFORT.
--- NOTE | 2019-06-17 | NUR ---
FOUND RESTING COMFORTABLY IN NO ACUTE DISTRESS.
[2019-06-17 00:24] VITALS: BP_SYST 117
--- NOTE | 2019-06-17 02:00 | NUR ---
RESTING COMFORTABLY IN NO ACUTE DISTRESS.
--- NOTE | 2019-06-17 04:00 | NUR ---
HAD EMESIS ,MODERATE IN AMOUNT.CLEAN & REPOSITION PT.
--- NOTE | 2019-06-17 06:45 | NUR ---
ENDORSED IN NO ACUTE DISTRESS. SAFETY MAINTAINED.
--- NOTE | 2019-06-17 07:25 | NUR ---
AM ROUNDS: PATIENT MAINTAINED ON CONTACT ISOLATION PRECAUTION RENDERED. UPDATES GIVEN BY NIGHT NURSE MICHAEL. CALL LIGHT WITH IN REACH.BED LOCKED AT LOWEST POSITION. BED ALARM ON.NO IV ACCESS, AWARE.CONTINUE TO MONITOR.
[2019-06-17] MEDS: LevALBUTEROL HCL 1.25 MG/0.5 ML *CONC.* VIAL.NEB (XOPENEX CONC.) INH SCH ×5 (07:35→23:00)
[2019-06-17 07:59] VITALS: BP_SYST 130
[2019-06-17] MEDS: KCL 20 mEq in D5/0.45NS 1000mL 1,000 ML IV SCH ×2 (09:00→22:20)
[2019-06-17] MEDS: GENTAMICIN SULFATE 400 MG in NS 100 ML IV SCH (10:00)
[2019-06-17] MEDS: NICOTINE 21 MG/24 HR PATCH.TD24 TD SCH (10:01)
[2019-06-17] MEDS: QUEtiapine FUMARATE 25 MG TABLET PO SCH ×2 (10:02→21:00)
[2019-06-17] MEDS: NYSTATIN 15 GM TOPICAL POWDER TP SCH ×2 (10:02→23:05)
[2019-06-17] MEDS: CLOPIDOGREL BISULFATE 75 MG TABLET PO SCH (10:02)
[2019-06-17] MEDS: MULTIVITS,CA,MINERALS/IRON/FA 1 TABLET PO SCH (10:02)
[2019-06-17] MEDS: ATORVASTATIN 10 MG TABLET PO SCH (10:02)
[2019-06-17] MEDS: FERROUS SULFATE 325 MG TABLET.DR PO SCH ×2 (10:03→20:54)
[2019-06-17] MEDS: clonazePAM 0.5 MG TABLET PO SCH ×3 (10:03→20:54)
[2019-06-17] MEDS: LOSARTAN POTASSIUM 50 MG TABLET (COZAAR) PO SCH ×2 (10:03→21:00)
[2019-06-17] MEDS: NITROFURANTOIN MONOHYD/M-CRYST 100 MG CAPSULE PO SCH ×2 (10:12→20:54)
[2019-06-17] MEDS: MENTHOL/ZINC OXIDE 113 GM OINT. TP PRN (10:20)
[2019-06-17 12:55] VITALS: BP_SYST 122
--- NOTE | 2019-06-17 14:03 | NUR ---
Nutrition F/U RD reviewed pt's current EMR record including diet Hx, physician notes, nursing notes, pertinent labs/meds/procedures, care trends, and care activity. Admission Dx: L hip dislocation, supraventricular tachycardia PMH: HTN, HLD, COPD, bipolar disorder per physician notes. Pt failed L hip closed reduction Sx 06/06/19 per EMR Current Diet Order/Nutrition Support: Mechanical soft, Ensure Enlive TID x10 days Subjective Info: Per EMR, PO intake average of 55% average x2 days. Pt continues w/ hostile behavior and yells. Per bedhuddle discussion, pt is for discharge, awaiting discharge order. Last BM 06/16 x1 Labs: 06/16: Na 135L, K 3.5WNL, BG 70WNL, BUN 17WNL, Cre 0.58WNL Skin Integrity Comment: Robb scale: 14; per Architecture Intern note 06/06/19: 1. Sacral area: Scar tissue with dry flaky skin and erythema from IAD, present on admission. 2. Buttocks/Perianal area: Erythema from IAD, present on admission. 3. Bilateral Inguinal areas: Erythema from IAD, present on admission. Estimated Energy Expenditure (kcals/day) 5957-8974 kcal/day (25-30 kcal/kg CBW for maintenance) Estimated Protein Required (g/day) 64-77 gm/day (1-1.2 gm/kg CBW for maintenance) Estimated Fluid Required (l/day) 1.6-2 L/day (1 ml/kcal/day for maintenance) Problem/Etiology/Signs/Symptoms Suboptimal nutritional intakes related to possible lack of appetite associated w/ cognitive limitations as evidenced by unsteady PO intake records. *ongoing Expected Outcomes/Goals - Monitor appetite and PO intakes w/ goal of pt meeting at least 75% of estimated nutritional needs, labs trending WNL, normal GI function, and skin integrity/wt maintenance Dietitian Recommendations * Continue: mechanical soft diet w/ Ensure Enlive TID (ONS provides 1050 kcal/day, 60 gm protein/day) * Encourage increase PO intakes Follow Up Moderate Risk: F/U in 3-5 days
--- NOTE | 2019-06-17 14:06 | NUR ---
Dietitian Recommendations * Continue: mechanical soft diet w/ Ensure Enlive TID (ONS provides 1050 kcal/day, 60 gm protein/day) * Encourage increase PO intakes Please see Nutrition F/U note KOJO, RD
--- NOTE | 2019-06-17 16:23 | NUR ---
DC PLanning: per conversation with dr. Duffy , he gave dcp order to send pt back to [facility] when be available. The order was carried out. The pt has room assigned to #[address]. CM called pt's mother/Joanna and sister/Alana with the phone numbers on file. There was no answer , so I left messages to both that the pt is possible transfer back to [facility] today. -- LALO Whitt made aware and to call dr. Iverson for the final discharge order.
[2019-06-17 17:19] VITALS: BP_SYST 115
--- NOTE | 2019-06-17 18:06 | NUR ---
ORTHO PAGE: SPOKE WITH PATIENT'S MOTHER ALEC WANTS TO SPEAK TO ORTHO PRIOR TO TRANSFER .SPOKE WITH DR ABRAHAM AND GAVE THE PATIENT'S MOM'S P#[phone] ,SO HE CAN SPEAK TO HER REGARDING HER CONCERN.
--- NOTE | 2019-06-17 18:20 | NUR ---
MD ROUNDS: DR PRATHERIUM IN AND TOLD HIM THAT THE PATIENT'S MOTHER WANT'S TO TALK TO ORTHO SURGEON BEFORE DC THE PATIENT.
--- NOTE | 2019-06-17 18:21 | NUR ---
[facility] I CALLED [facility] TO PUT TRANSFER ON WILL CALL REASON: FAMILY IS WAITING TO TALK TO THE DOCTOR REGARDING TRANSFER I SPOKE WITH AGUSTIN EMT DEFECT REPAIRER GLASSWARE.
--- NOTE | 2019-06-17 18:56 | NUR ---
CLOSING NOTES: SPOKE WITH PATIENT'S MOTHER ALEC AND REFUSED PATIENT TO BE TRANSFER ,WANTS TO TALK TO TIME CYCLE OPERATOR,ORTHO AND CHARGE NURSE REGARDING THE PROBLEM.CHARGE NURSE BANDAR TO INFORM DR CANADA REGARDING REFUSAL OF PATIENT'S MOTHER ALEC TO TRANSFER PATIENT BACK TO [facility],WANTS TO SPEAK WITH ORTHO DOCTOR AND TIME CYCLE OPERATOR.WILL ENDORSED TO [employer] NURSE,PATIENT IN STABLE CONDITION.CONTINUE TO MONITOR.
--- NOTE | 2019-06-17 19:37 | NUR ---
Initial note: Received report from dayshift RN. Patient is awake in bed, talking to herself, no acute distress. Even and unlabored respirations, tolerating room air. IV site absent, physician is aware. Dr. Iverson making rounds at this time, stated to hold discharge for today and to have family speak with hospital administration regarding discharge. Call light with patient. Contact isolation in place for ESBL urine. Safety, fall precautions in place. Will continue with plan of care.
--- NOTE | 2019-06-17 19:44 | NUR ---
CALLED [facility] AND TALKED WITH CORAZON - SHE TRIED TO CONNECT TO RN QUALITY MEASUREMENT SPECIALIST BUT UNABLE ,SHE SAID RN QUALITY MEASUREMENT SPECIALIST IS NOT AVAILABLE AT THIS TIME AND WILL NOTIFY ONCE SHE IS AVAILABLE . INFORMED HER THAT PT IS NOT TRANSFERRING TO THEIR FACILITY TONIGHT .
--- NOTE | 2019-06-17 19:44 | NUR ---
ADDED NOTES: DR CANADA IS AWARE THAT PATIENT'S MOTHER REFUSED TRANSFER TONIGHT AND WITH ORDERS HOLD TRANSFER TONIGHT AND LET FAMILY TALK TO RAISER HELPER AND ENDORSED TO NIGHT NURSE CHANEL.
[2019-06-17 20:00] VITALS: BP_SYST 122
[2019-06-17] MEDS: QUEtiapine FUMARATE 100 MG TABLET PO SCH ×2 (20:54→21:00)
[2019-06-17] MEDS: ENOXAPARIN SODIUM 40 MG/0.4 ML SYRINGE SUBCUT SCH (21:00)
--- NOTE | 2019-06-17 21:40 | NUR ---
Spoke with family: Spoke with patient's sister Alana Liliana at this time, provided updates to plan of care. Alana was informed that Dr. Iverson requested for her and her mother to speak with hospital administration regarding discharge arrangements. Per Alana, she will be able to call administration before 5 PM tomorrow.
--- NOTE | 2019-06-18 00:12 | NUR ---
Rounds: Patient is resting in bed, no acute distress. Even, unlabored breathing on room air. Call light with patient. Will continue to monitor.
[2019-06-18 01:00] VITALS: BP_SYST 117
--- NOTE | 2019-06-18 03:25 | NUR ---
Rounds: Patient is sleeping in bed. No acute distress. Tolerating room air, even and unlabored breathing. Call light with patient. Will continue monitoring.
--- NOTE | 2019-06-18 06:01 | NUR ---
Closing note: Patient is sleeping comfortably in bed. No acute distress. Tolerating room air. All needs met. Safety, fall precautions observed. Will endorse care to dayshift RN.
[2019-06-18] MEDS: LevALBUTEROL HCL 1.25 MG/0.5 ML *CONC.* VIAL.NEB (XOPENEX CONC.) INH SCH ×2 (07:00→23:00)
--- NOTE | 2019-06-18 08:00 | NUR ---
received pt in bed,screaming and yelling,needs attended,side rails up,safety maintained.continue to monitor pt.
[2019-06-18] MEDS: ATORVASTATIN 10 MG TABLET PO SCH ×2 (09:00→10:32)
[2019-06-18] MEDS: CLOPIDOGREL BISULFATE 75 MG TABLET PO SCH ×2 (09:00→10:32)
[2019-06-18] MEDS: LOSARTAN POTASSIUM 50 MG TABLET (COZAAR) PO SCH ×2 (09:00→20:44)
[2019-06-18 09:57] VITALS: BP_SYST 104
--- NOTE | 2019-06-18 10:00 | NUR ---
pt is selective with meds,only taken klonopin and seroquel and refused rest of meds.
[2019-06-18] MEDS: NICOTINE 21 MG/24 HR PATCH.TD24 TD SCH (10:30)
[2019-06-18] MEDS: clonazePAM 0.5 MG TABLET PO SCH ×3 (10:30→20:33)
[2019-06-18] MEDS: QUEtiapine FUMARATE 25 MG TABLET PO SCH ×2 (10:31→20:44)
[2019-06-18] MEDS: NYSTATIN 15 GM TOPICAL POWDER TP SCH (10:31)
[2019-06-18] MEDS: MULTIVITS,CA,MINERALS/IRON/FA 1 TABLET PO SCH (10:31)
[2019-06-18] MEDS: FERROUS SULFATE 325 MG TABLET.DR PO SCH ×2 (10:32→20:33)
[2019-06-18] MEDS: NITROFURANTOIN MONOHYD/M-CRYST 100 MG CAPSULE PO SCH ×2 (10:40→20:33)
[2019-06-18] MEDS: KCL 20 mEq in D5/0.45NS 1000mL 1,000 ML IV SCH (11:40)
--- NOTE | 2019-06-18 12:00 | NUR ---
vss,pt mother visited at bedside and updated of plan of care.hourly rounds made,safety maintained.
[2019-06-18 13:11] VITALS: BP_SYST 121
--- NOTE | 2019-06-18 14:00 | NUR ---
pt sleeping quietly in bed.no acute distress noted.
--- NOTE | 2019-06-18 16:00 | NUR ---
pt nausea and vomitted x2,still refused medication,continue to monitor pt.
[2019-06-18 17:12] VITALS: BP_SYST 125
--- NOTE | 2019-06-18 18:00 | NUR ---
pt resting in bed with blanket covered her head and whole body,remains refused prn meds for nausea
--- NOTE | 2019-06-18 18:35 | NUR ---
MD Baez the [facility] Director and I spoke with Dr. Iverson regarding the concerns of the patient's mother Joanna regarding the plan for the patient's hip surgery vs no surgery. Per Joanna Dr. Valle has not called and explained to her what the plan is for her daughter and she stated she will contest the discharge plan back to [facility] due to this issue. Dr. Iverson stated that he has spoken to Dr. Valle at least 2 times in the past week and asked him to call the family. Dr. Iverson also stated that he has spoken with Dr. Escalante the MORTGAGE FIELD INSPECTOR and Dr. Escalante put in a call to Dr. Valle. Dr. Iverson stated that the orthopedic MD needs to explain to the patient's family what the plan is for the patient regarding hip surgery or no hip surgery. Dr. Iverson informed that the patient's mother wants to Appeal the discharge and she wants to meet with the doctors and administration and he stated that will be fine. Sasha stated she will obtain the Medicare appeal forms for Joanna.
--- NOTE | 2019-06-18 19:18 | NUR ---
pt continue cover her head and whole body with blanket,but no further n/v noted.report endorsed to overnight caregiver nurse.
--- NOTE | 2019-06-18 19:32 | NUR ---
Initial note: Received report from dayshift RN. Patient is awake in bed, calm, but confused. No acute distress. Even and unlabored respirations, tolerating room air. IV site absent, physician is aware. Call light with patient. Contact isolation in place for ESBL urine. Safety, fall precautions in place. Will continue with plan of care.
[2019-06-18 20:00] VITALS: BP_SYST 134
[2019-06-18] MEDS: ENOXAPARIN SODIUM 40 MG/0.4 ML SYRINGE SUBCUT SCH (20:42)
[2019-06-18] MEDS: QUEtiapine FUMARATE 100 MG TABLET PO SCH (20:44)
--- NOTE | 2019-06-18 21:15 | NUR ---
Rounds: Patient is awake and speaking to herself. No acute distress. Tolerating room air. Call light with patient. Will continue monitoring.
[2019-06-18] MEDS ORDERED: LORazepam 2 MG/ML VIAL IM ONE (23:15)
[2019-06-18] MEDS ORDERED: DIPHENHYDRAMINE INJ 50 MG/ML VIAL IM ONE (23:15)
--- NOTE | 2019-06-18 23:15 | NUR ---
Dr. Iverson: Spoke with MD over phone, notified him regarding increased patient agitation. Order received for Ativan 2 MG IM x 1 and Benadryl 50 MG IM x 1. Order verified by read-back, RN to input.
--- NOTE | 2019-06-18 23:31 | NUR ---
Agitation: Patient is yelling incomprehensibly and striking the side rails with her hands. Administered Ativan 2 MG IM x1 and Benadryl 50 MG IM x1 for agitation. Patient tolerated well. Call light with patient. Will monitor closely.
[2019-06-19] MEDS: NYSTATIN 15 GM TOPICAL POWDER TP SCH ×3 (00:30→21:00)
--- NOTE | 2019-06-19 01:20 | NUR ---
Rounds: Patient is sleeping in bed. No acute distress. Tolerating room air, even and unlabored breathing. Call light with patient. Will continue monitoring.
[2019-06-19 02:08] VITALS: BP_SYST 116
--- NOTE | 2019-06-19 04:11 | NUR ---
Rounds: Patient is resting in bed, no acute distress. Even, unlabored breathing on room air. Call light with patient. Will continue to monitor.
[2019-06-19] MEDS: LevALBUTEROL HCL 1.25 MG/0.5 ML *CONC.* VIAL.NEB (XOPENEX CONC.) INH SCH ×3 (07:00→23:10)
[2019-06-19 08:50] VITALS: BP_SYST 151
[2019-06-19] MEDS: FERROUS SULFATE 325 MG TABLET.DR PO SCH ×2 (09:16→21:00)
[2019-06-19] MEDS: NITROFURANTOIN MONOHYD/M-CRYST 100 MG CAPSULE PO SCH ×2 (09:16→21:00)
[2019-06-19] MEDS: clonazePAM 0.5 MG TABLET PO SCH ×3 (09:16→21:00)
[2019-06-19] MEDS: MULTIVITS,CA,MINERALS/IRON/FA 1 TABLET PO SCH (09:16)
[2019-06-19] MEDS: ATORVASTATIN 10 MG TABLET PO SCH (09:16)
[2019-06-19] MEDS: CLOPIDOGREL BISULFATE 75 MG TABLET PO SCH (09:17)
[2019-06-19] MEDS: LOSARTAN POTASSIUM 50 MG TABLET (COZAAR) PO SCH ×2 (09:17→21:00)
[2019-06-19] MEDS: QUEtiapine FUMARATE 25 MG TABLET PO SCH ×2 (09:18→21:00)
[2019-06-19] MEDS: NICOTINE 21 MG/24 HR PATCH.TD24 TD SCH (09:18)
--- NOTE | 2019-06-19 09:20 | NUR ---
Routine Patient cleaned and linens changed. Patient resting comfortably in bed. Scheduled medications given per order. Patient stable at this time.
[2019-06-19 12:28] VITALS: BP_SYST 115
--- NOTE | 2019-06-19 13:50 | NUR ---
DC Planning: Magan Baez, [facility] director stated she received call from Joanna/pt's mother who has put the complaints to administration including Haley about she has not getting the call back from any doctor regarding POC for the patient. Especially dr. Valle to explain to her about the surgery. Dr. Duffy was trying to get in touch with dr Valle for the pass couple of days but it was unsuccessful. I contacted dr. Duffy asking for his assistance to speak with Joanna about the POC and discharge pt back to [facility]. Addendum: 06/19/19 at 1526 by Corina Tavera RN >> Responding from dr. Iverson, he referred to dr. Valle to speak with Joanna only. I called Mariann/administration to help calling dr. Valle. She spoke with the md's office and was told that the md was seeing pt in the office. The md will come in to [facility] to see the pt around [address] Iverson made aware. I called Joanna asking her to come in to speak with dr. Valle to day. Joanna said she wants to meet with all mds and speak face to face with them. She can not come in today dt no transportation, her handicab dtr/Alana can not be ready by then. She does not want to talk to any md via phone either. I notified dr. Iverson during his rounding in [facility]. The md said he will call Joanna him self. Addendum: 06/20/19 at 0828 by Corina Tavera RN >> Late entry: per dr. Iverson note "I TRIED TO REACH HER MOTHER TWICE BUT NO ANSWER.THE CASE DISCUSSED WITH REGULATORY COMPLIANCE COORDINATOR."
--- NOTE | 2019-06-19 14:16 | NUR ---
Discharge Planning: DCP faxed pt updated clinicals to [facility] (f [phone] p [phone]) per Tabby after she received update she will call with room number. DCP to follow up.
[2019-06-19] MEDS: KCL 20 mEq in D5/0.45NS 1000mL 1,000 ML IV SCH (14:20)
[2019-06-19 17:22] VITALS: BP_SYST 118
--- NOTE | 2019-06-19 18:05 | NUR ---
Routine Patient resting comfortably in bed with no distress noted. Patient yelled and screamed throughout shift. All needs were attended to. Pillows placed underneath legs, but patient continues to kick them away. Patient stable throughout shift.
--- NOTE | 2019-06-19 19:45 | NUR ---
INITIAL NOTE AT INITIAL ASSESSMENT, PATIENT IS RESTING IN BED, STABLE, NO SIGNS OF RESPIRATORY DISTRESS. PATIENT IS AGITATED, AND YELLING IN CONFUSION, PER REPORT, THIS IS THE PATIENT'S BASELINE. PATIENT VERBALIZES NO PAIN. PLAN OF CARE FOR THE EVENING IS COMMUNICATED WITH THE PATIENT. PATIENT IS UNSUCCESSFUL IN DEMONSTRATION OF CALL LIGHT AT THIS TIME DUE TO COGNITIVE IMPAIRMENT. BED IS LOCKED, ALARMED, AND AT THE LOWEST LEVEL. FALL, SAFETY, RESPIRATORY, ASPIRATION, AND ISOLATION PRECAUTIONS WILL BE TAKEN THROUGHOUT THE SHIFT.
[2019-06-19 20:00] VITALS: BP_SYST 143
[2019-06-19] MEDS: QUEtiapine FUMARATE 100 MG TABLET PO SCH (21:00)
[2019-06-19] MEDS: ENOXAPARIN SODIUM 40 MG/0.4 ML SYRINGE SUBCUT SCH (21:00)
--- NOTE | 2019-06-19 21:45 | NUR ---
PATIENT REFUSES MEDS PATIENTS REFUSES MEDS AT THIS TIME DESPITE EDUCATIONAL EFFORTS. AWARE. WILL CONTINUE TO ENCOURAGE.
[2019-06-19] MEDS ORDERED: HALOPERIDOL LACTATE 5 MG/ML VIAL IM ONE (23:45)
--- NOTE | 2019-06-19 23:45 | NUR ---
NOTE PATIENT IS RESTING IN BED, STABLE, NO SIGNS OF RESPIRATORY DISTRESS. BED IS LOCKED, ALARMED, AND AT THE LOWEST LEVEL.
[2019-06-20] MEDS ORDERED: HALOPERIDOL LACTATE 5 MG/ML VIAL ONE ×2 (00:02→22:53)
[2019-06-20 00:06] VITALS: BP_SYST 118
--- NOTE | 2019-06-20 01:45 | NUR ---
NOTE PATIENT IS SLEEPING, STABLE, NO SIGNS OF RESPIRATORY DISTRESS. BED IS LOCKED, ALARMED, AND AT THE LOWEST LEVEL.
[2019-06-20] MEDS: KCL 20 mEq in D5/0.45NS 1000mL 1,000 ML IV SCH ×2 (03:40→17:00)
--- NOTE | 2019-06-20 03:45 | NUR ---
NOTE PATIENT IS SLEEPING, STABLE, NO SIGNS OF RESPIRATORY DISTRESS. BED IS LOCKED, ALARMED, AND AT THE LOWEST LEVEL.
--- NOTE | 2019-06-20 05:45 | NUR ---
NOTE PATIENT IS SLEEPING, STABLE, NO SIGNS OF RESPIRATORY DISTRESS. BED IS LOCKED, ALARMED, AND AT THE LOWEST LEVEL.
--- NOTE | 2019-06-20 06:54 | NUR ---
CLOSING NOTE PATIENT HAD EPISODES OF AGITATION THROUGHOUT THE SHIFT. AT THIS TIME, SHE IS RESTING IN BED, STABLE, NO SIGNS OF RESPIRATORY DISTRESS. CALL LIGHT IS WITHIN REACH. BED IS LOCKED, ALARMED, AND AT THE LOWEST LEVEL. FALL, SAFETY, RESPIRATORY, ASPIRATION, AND ISOLATION PRECAUTIONS HAVE BEEN TAKEN THROUGHOUT THE NIGHT. WILL CONTINUE TO MONITOR UNTIL SHIFT REPORT IS GIVEN AT BEDSIDE TO AM NURSE.
[2019-06-20] MEDS: LevALBUTEROL HCL 1.25 MG/0.5 ML *CONC.* VIAL.NEB (XOPENEX CONC.) INH SCH ×3 (07:00→23:00)
[2019-06-20 07:30] VITALS: BP_SYST 105
--- NOTE | 2019-06-20 07:33 | NUR ---
Opening Note received bedside SBAR report from machinist 2nd shift RN, patient resting in bed, respirations even and unlabored on room air, no acute distress noted, room close to nurses station, educated patient on use of call light and asked to call for assistance, call light in reach, bed in low and locked position, bed alarm on.
[2019-06-20 08:00] VITALS: BP_SYST 105
[2019-06-20] MEDS ORDERED: QUEtiapine FUMARATE 25 MG TABLET PO SCH ×2 (09:00→17:00)
[2019-06-20] MEDS: LOSARTAN POTASSIUM 50 MG TABLET (COZAAR) PO SCH ×2 (09:00→20:28)
[2019-06-20] MEDS: NICOTINE 21 MG/24 HR PATCH.TD24 TD SCH (09:21)
[2019-06-20] MEDS: clonazePAM 0.5 MG TABLET PO SCH ×3 (09:21→20:27)
[2019-06-20] MEDS: NYSTATIN 15 GM TOPICAL POWDER TP SCH ×2 (09:22→20:29)
[2019-06-20] MEDS: ATORVASTATIN 10 MG TABLET PO SCH (09:24)
[2019-06-20] MEDS: FERROUS SULFATE 325 MG TABLET.DR PO SCH ×2 (09:24→20:28)
[2019-06-20] MEDS: NITROFURANTOIN MONOHYD/M-CRYST 100 MG CAPSULE PO SCH ×2 (09:24→20:27)
[2019-06-20] MEDS: MULTIVITS,CA,MINERALS/IRON/FA 1 TABLET PO SCH (09:24)
[2019-06-20] MEDS: CLOPIDOGREL BISULFATE 75 MG TABLET PO SCH (09:24)
--- NOTE | 2019-06-20 09:45 | NUR ---
RN Rounds patient resting in bed, respirations even and unlabored on room air, patient reports pain is controlled at this time.
--- NOTE | 2019-06-20 11:17 | NUR ---
Discharge Planning: DCP Received message from Tabby from [facility] (p [phone]) regarding patient discharge status, patient to go to [facility]. DCP to follow up.
[2019-06-20 12:43] VITALS: BP_SYST 112
--- NOTE | 2019-06-20 12:45 | NUR ---
RN Rounds patient sitting up in bed eating lunch, tolerated well, patient denies any nausea, patient denies any pain.
--- NOTE | 2019-06-20 13:55 | NUR ---
Physician Rounds Dr. Whaley at bedside examining patient. Addendum: 06/20/19 at 1401 by Janki Krishnamurthy RN new medication orders received from Dr. Whaley, verified with read back.
--- NOTE | 2019-06-20 15:45 | NUR ---
Bedpan patient requesting to use bedpan, assisted patient to use bedpan, patient voided x1, patient cleaned and linen changed, patient tolerated well, patient requesting snack, provided patient with half a turkey sandwich, patient tolerated well.
[2019-06-20 16:00] VITALS: BP_SYST 127
--- NOTE | 2019-06-20 16:16 | NUR ---
Spoke with Physician spoke with Tiara education and outreach coordinator, per Tiara there is a bed available at [facility], however patients mother wants to speak with Dr. Valle before patient can be discharged, paged Dr. Holloway (animal control officer for Dr. Valle), informed him that patients mother would like to speak with surgeon before patient is discharged, Dr. Holloway states that he will contact Dr. Valle and have him call patients , Sasha [facility] director aware of discharge planning. Addendum: 06/20/19 at 1712 by Janki Krishnamurthy RN Dr. Holloway called back, he was unable to reach Dr. Valle, Dr. Holloway states that he will call patients mother, provided Dr. Holloway with patients' mother Deisy phone number.
[2019-06-20] MEDS ORDERED: QUEtiapine FUMARATE 100 MG TABLET PO SCH ×2 (17:00→21:00)
--- NOTE | 2019-06-20 17:00 | NUR ---
Physician Rounds/Emesis patient had large emesis x1, rounds with Dr. Iverson, informed him of patients emesis, new medication orders received, verified with read back, informed Dr. Iverson that discharge is pending surgeon speaking with patients mother and that bed is available.
[2019-06-20] MEDS ORDERED: ONDANSETRON HCL 4 MG/2 ML VIAL IM PRN (17:15)
--- NOTE | 2019-06-20 18:16 | NUR ---
Called Patients Mother called cassandra Marshall to see if she was able to speak with surgeon and if she consents for discharge of patient to [facility], unable to reach patients mother. Addendum: 06/20/19 at 1835 by Janki Krishnamurthy RN spoke with cassandra Marshall, per Joanna she did not speak with Dr. Holloway, per cassandra Marshall she is having a meeting with the DON before patient can be discharged, patients mother asked about medications that patient is receiving, per Joanna patient should not be receiving seroquel and instead should be receiving Prolixin 20mg in the morning and 10mg at night, paged Dr. Wilkinson to inform him that cassandra galeana does not want her taking seroquel and would like it replaced with Prolixin, awaiting call back.
--- NOTE | 2019-06-20 18:49 | NUR ---
PAGED PAGED DOCTOR IDRESS WHO IS MONKEY BREEDER FOR ASMITA
--- NOTE | 2019-06-20 18:58 | NUR ---
Spoke with Physician spoke with Dr. Whaley, informed him that patients mother Joanna is refusing to have patient on seroquel and would like patient to continue home medication of Prolixin, new orders received, verified with read back.
--- NOTE | 2019-06-20 19:11 | NUR ---
Closing Note bedside SBAR report given to Aleisha RN, patient resting in bed, respirations even and unlabored on room air, no acute distress noted, room close to nurses station, educated patient on use of call light and asked to call for assistance, call light in reach, bed in low and locked position, bed alarm on, care endorsed to retail shift supervisor RN.
[2019-06-20 20:20] VITALS: BP_SYST 123
--- NOTE | 2019-06-20 20:20 | NUR ---
Opening notes Pt awake, agitated, restless. VSS, no acute respiratory distress noted. No IV access, MD aware. Pt incontinent of urine, pericare/skin care provided. Z-guard applied to redness on sacral/periarea. Safety maintained. Bed low, locked, siderails up. Call light within reach. Pt near nursing station for to be monitored closely.
[2019-06-20] MEDS: ENOXAPARIN SODIUM 40 MG/0.4 ML SYRINGE SUBCUT SCH (20:33)
--- NOTE | 2019-06-20 22:26 | NUR ---
Ji BYRD Pt agitated, yelling and screaming. Pagedoreen Iverson and received order for Haldol 3mg IM, Benadryl 50mg IM and Ativan 1mg IM x once.
[2019-06-20] MEDS ORDERED: HALOPERIDOL LACTATE 5 MG/ML VIAL IM ONE (22:30)
[2019-06-20] MEDS ORDERED: DIPHENHYDRAMINE INJ 50 MG/ML VIAL IM ONE (22:30)
[2019-06-20] MEDS ORDERED: LORazepam 2 MG/ML VIAL IM ONE (22:30)
[2019-06-20] MEDS ORDERED: DIPHENHYDRAMINE INJ 50 MG/ML VIAL ONE (22:51)
--- NOTE | 2019-06-20 22:51 | NUR ---
Pt agitated Pt agitated and screaming. Medicated with Haldol, Benadryl, Ativan one time order with CRN/security assist. Call light within reach. Bed maintained low, siderails up, bed alarm on. Close to nursing station for monitoring.
[2019-06-20] MEDS ORDERED: LORazepam 2 MG/ML VIAL ONE (22:52)
--- NOTE | 2019-06-21 02:05 | NUR ---
Rounds Pt asleep, respirations even and unlabored. Safety maintained. Bed low, locked, siderails up, alarm on. To monitor.
[2019-06-21] MEDS: KCL 20 mEq in D5/0.45NS 1000mL 1,000 ML IV SCH ×2 (06:20→19:40)
--- NOTE | 2019-06-21 06:30 | NUR ---
Closing notes Pt asleep, no s/s distress or discomfort noted. No N/V noted. Safety maintained. Bed low, locked, siderails up, alarm on. To endorse to AM nurse.
[2019-06-21] MEDS: LevALBUTEROL HCL 1.25 MG/0.5 ML *CONC.* VIAL.NEB (XOPENEX CONC.) INH SCH ×3 (07:00→23:00)
--- NOTE | 2019-06-21 07:30 | NUR ---
AM ROUNDS: PATIENT RESTING. CALM THIS TIME. CONTACT ISOLATION PRECAUTION RENDERED.NO IV ACCESS-PT REFUSED IV INSERTION,MD AWARE. CALL LIGHT WITH IN REACH. BED LOCKED AT LOWEST POSITION. BED ALARM ON. CONTINUE TO MONITOR.
[2019-06-21 08:50] VITALS: BP_SYST 137
[2019-06-21] MEDS ORDERED: QUEtiapine FUMARATE 100 MG TABLET PO SCH (09:00)
--- NOTE | 2019-06-21 09:30 | NUR ---
MED PASS: PATIENT TOOK ALL HER MORNING MEDS WELL. WITH NO PROBLEM.
[2019-06-21] MEDS: LOSARTAN POTASSIUM 50 MG TABLET (COZAAR) PO SCH ×3 (10:10→21:21)
[2019-06-21] MEDS: CLOPIDOGREL BISULFATE 75 MG TABLET PO SCH (10:10)
[2019-06-21] MEDS: MULTIVITS,CA,MINERALS/IRON/FA 1 TABLET PO SCH (10:10)
[2019-06-21] MEDS: clonazePAM 0.5 MG TABLET PO SCH ×3 (10:10→21:20)
[2019-06-21] MEDS: ATORVASTATIN 10 MG TABLET PO SCH (10:11)
[2019-06-21] MEDS: FERROUS SULFATE 325 MG TABLET.DR PO SCH ×3 (10:11→21:21)
[2019-06-21] MEDS: NICOTINE 21 MG/24 HR PATCH.TD24 TD SCH (10:11)
[2019-06-21] MEDS: MENTHOL/ZINC OXIDE 113 GM OINT. TP PRN (10:12)
[2019-06-21] MEDS: NYSTATIN 15 GM TOPICAL POWDER TP SCH ×2 (10:15→21:22)
--- NOTE | 2019-06-21 10:30 | NUR ---
NYSTATIN POWDER: PATIENT REFUSED NYSTATIN POWDER APPLIED TO GROIN AREAS FOR RASHES/REDNESS.
[2019-06-21 12:00] VITALS: BP_SYST 120
--- NOTE | 2019-06-21 12:30 | NUR ---
LUNCH: LUNCH TRAY SERVED. PATIENT TOOK THE SOAP AND DRINKS THE ENSURE.AND THE REST OF THE TRAY,PATIENT REFUSED TO EAT.
--- NOTE | 2019-06-21 14:40 | NUR ---
RN ROUNDS: PATIENT TALKING TO HER SISTER ON THE PHONE. NO DISTRESS.
[2019-06-21 15:30] VITALS: BP_SYST 111
--- NOTE | 2019-06-21 16:30 | NUR ---
MD ROUNDS: PATIENT SEEN BY DR CANADA. STILL WAITING FOR ORTHO TO TALK TO THE FAMILY. PATIENT STILL AGITATED ,PATIENT REFUSED SEROQUEL AND FAMILY.
--- NOTE | 2019-06-21 18:26 | NUR ---
CLOSING NOTES: PATIENT STILL AGITATED AND TALKING LOUD.CALM DOWN AFTER FEW MINS ON AND OFF. SAFETY MEASURES RENDERED.BED LOCKED AT LOWEST POSITION. BED ALARM ON. CONDITION GUARDED.
[2019-06-21] MEDS ORDERED: LORazepam 2 MG/ML VIAL IM ONE (19:30)
[2019-06-21] MEDS ORDERED: HALOPERIDOL LACTATE 5 MG/ML VIAL IM ONE (19:30)
[2019-06-21] MEDS ORDERED: DIPHENHYDRAMINE INJ 50 MG/ML VIAL IM ONE (19:30)
--- NOTE | 2019-06-21 19:35 | NUR ---
OPENING NOTE RECEIVED REPORT FROM KHALIDA RN, PATIENT IS RESTING IN BED, PATIENT IS TALKING LOUD AND MOVING IN BED, A/OX1, REORIENTED PATIENT TO PERSON, PLACE, TIME AND EVENT, EVEN AND UNLABORED BREATHING ON ROOM AIR, NO SIGNS OF ACUTE DISTRESS, NO IV ACCESS, PATIENT REFUSED, MD AWARE. SAFETY AND FALL PRECAUTIONS IN PLACE, CONTACT ISOLATION PRECAUTIONS IN PLACE, BED LOCKED AND IN LOWEST POSITION, BED ALARM ON, BED CLOSE TO NURSING STATION, CALL LIGHT WITH PATIENT, WILL CONTINUE TO MONITOR.
[2019-06-21 20:00] VITALS: BP_SYST 134
[2019-06-21] MEDS: ENOXAPARIN SODIUM 40 MG/0.4 ML SYRINGE SUBCUT SCH (21:00)
--- NOTE | 2019-06-21 21:22 | NUR ---
MED PASS PATIENT IS CONFUSED AND RESTLESS IN BED, PATIENT REFUSED HER 2100 SCHEDULED COZAAR, FERROUS SULFATE, AND LOVENOX MEDICATION DESPITE MULTIPLE ATTEMPTS OF EDUCATION, AND MULTIPLE ATTEMPTS TO REORIENT PATIENT, PATIENT ABLE TO TAKE OTHER 2100 SCHEDULED MEDICATIONS. SAFETY AND FALL PRECAUTIONS IN PLACE, ASPIRATION AND CONTACT ISOLATION PRECAUTIONS IN PLACE, CALL LIGHT WITH PATIENT, WILL CONTINUE TO MONITOR.
--- NOTE | 2019-06-21 23:15 | NUR ---
RN ROUNDS PATIENT IS RESTING IN BED, PATIENT IS RESTLESS IN BED, REORIENTED PATIENT TO PERSON, PLACE, TIME AND EVENT, TOLERATING ROOM AIR, NO SIGNS OF ACUTE DISTRESS AT THIS TIME, NO IV ACCESS, MD AWARE, NO COMPLAINTS OF PAIN. SAFETY AND FALL PRECAUTIONS IN PLACE, CONTACT ISOLATION PRECAUTIONS IN PLACE, BED LOCKED AND IN LOWEST POSITION, BED ALARM ON, BED CLOSE TO NURSING STATION, CALL LIGHT WITH PATIENT, WILL CONTINUE TO MONITOR.
[2019-06-22 00:18] VITALS: BP_SYST 135
--- NOTE | 2019-06-22 01:10 | NUR ---
RN ROUNDS PATIENT IS RESTING IN BED, EYES CLOSED ASLEEP, TOLERATING ROOM AIR, NO SIGNS OF ACUTE DISTRESS NOTED, NO IV ACCESS, MD AWARE, NO COMPLAINTS OF PAIN AT THIS TIME. SAFETY AND FALL PRECAUTIONS IN PLACE, CONTACT ISOLATION PRECAUTIONS IN PLACE, ASPIRATION PRECAUTIONS IN PLACE, BED LOCKED AND IN LOWEST POSITION, BED ALARM ON, BED CLOSE TO NURSING STATION, CALL LIGHT WITH PATIENT, WILL CONTINUE TO MONITOR.
--- NOTE | 2019-06-22 03:03 | NUR ---
RN ROUNDS PATIENT IS RESTING IN BED, EYES CLOSED ASLEEP, NO SIGNS OF ACUTE DISTRESS, TOLERATING ROOM AIR, NO COMPLAINTS OF PAIN. SAFETY AND FALL PRECAUTIONS IN PLACE, CONTACT ISOLATION AND ASPIRATION PRECAUTIONS IN PLACE, BED CLOSE TO NURSING STATION, CALL LIGHT WITH PATIENT, WILL CONTINUE TO MONITOR.
--- NOTE | 2019-06-22 04:21 | NUR ---
RN ROUNDS PATIENT IS RESTING IN BED, EYES CLOSED ASLEEP, TOLERATING ROOM AIR, NO COMPLAINTS OF PAIN AT THIS TIME, NO SIGNS OF ACUTE DISTRESS. SAFETY, FALL, AND ASPIRATION PRECAUTIONS IN PLACE, CONTACT ISOLATION PRECAUTIONS IN PLACE, BED CLOSE TO NURSING STATION, CALL LIGHT WITH PATIENT, WILL CONTINUE TO MONITOR.
--- NOTE | 2019-06-22 06:26 | NUR ---
CLOSING NOTE PATIENT IS RESTING IN BED, EYES CLOSED, EVEN AND UNLABORED BREATHING ON ROOM AIR, NO SIGNS OF ACUTE DISTRESS, NO IV ACCESS, PATIENT REFUSED, MD AWARE. SAFETY AND FALL PRECAUTIONS IN PLACE, CONTACT ISOLATION PRECAUTIONS IN PLACE, ASPIRATION PRECAUTIONS IN PLACE, BED LOCKED AND IN LOWEST POSITION, BED ALARM ON, THREE SIDE RAILS UP, BED CLOSE TO NURSING STATION, CALL LIGHT WITH PATIENT, WILL ENDORSE CARE TO DAYSHIFT RN.
[2019-06-22] MEDS: LevALBUTEROL HCL 1.25 MG/0.5 ML *CONC.* VIAL.NEB (XOPENEX CONC.) INH SCH ×3 (07:00→23:00)
--- NOTE | 2019-06-22 07:39 | NUR ---
AM ROUNDS: PATIENT AWAKE THIS TIME. TALKING LOUD ON HER OWN.UP DATES GIVEN BY NIGHT NURSE SHOSHANA.STILL CONTACT ISOLATION PRECAUTION.CALL LIGHT WITH IN REACH. BED LOCKED AT LOWEST POSITION. BED ALARM ON. NO ACUTE DISTRESS.
[2019-06-22 08:30] VITALS: BP_SYST 126
[2019-06-22] MEDS: KCL 20 mEq in D5/0.45NS 1000mL 1,000 ML IV SCH ×2 (09:00→21:52)
[2019-06-22] MEDS: PROLIXIN PO SCH (09:00)
--- NOTE | 2019-06-22 09:45 | NUR ---
RN ROUNDS: PATIENT REFUSED ALL HER MORNING MEDS.
[2019-06-22] MEDS: MULTIVITS,CA,MINERALS/IRON/FA 1 TABLET PO SCH (09:46)
[2019-06-22] MEDS: CLOPIDOGREL BISULFATE 75 MG TABLET PO SCH (09:46)
[2019-06-22] MEDS: FERROUS SULFATE 325 MG TABLET.DR PO SCH ×2 (09:46→21:00)
[2019-06-22] MEDS: ATORVASTATIN 10 MG TABLET PO SCH (09:46)
[2019-06-22] MEDS: clonazePAM 0.5 MG TABLET PO SCH ×4 (09:46→21:00)
[2019-06-22] MEDS: LOSARTAN POTASSIUM 50 MG TABLET (COZAAR) PO SCH ×2 (09:47→21:00)
[2019-06-22] MEDS: NICOTINE 21 MG/24 HR PATCH.TD24 TD SCH (09:47)
[2019-06-22] MEDS: NYSTATIN 15 GM TOPICAL POWDER TP SCH ×2 (09:48→21:52)
[2019-06-22 12:50] VITALS: BP_SYST 121
--- NOTE | 2019-06-22 12:54 | NUR ---
RN ROUNDS: FAMILY AT THE BEDSIDE. PATIENT SUDDENLY TALKING LOUD AFTER FEW MINUTES. THEN BECAME CALMER AFTER.
--- NOTE | 2019-06-22 13:33 | NUR ---
Nutrition F/U RD reviewed pt's current EMR record including diet Hx, physician notes, nursing notes, pertinent labs/meds/procedures, care trends, and care activity. Admission Dx: L hip dislocation, supraventricular tachycardia PMH: HTN, HLD, COPD, bipolar disorder per physician notes. Pt failed L hip closed reduction Sx 06/06/19 per EMR Current Diet Order: Mechanical soft, Ensure Enlive TID x15 days Subjective Info: Per EMR, PO intake average of 31% x 3 days, confused, non-compliant w/ medical treatment, and w/ continues w/ hostile behavior. Per MD notes, a/w ortho to s/w family re POC. Last BM 06/19. Abd is soft and non-distended. Per RN report, pt continues to enjoy Ensure, pt does not eat a lot of the solid food but drinks Ensure. Pt may benefit from Megace to stimulate appetite. No new labs documented. (last one being 06/16/2019) Skin Integrity Comment: Robb scale: 13; per Photographic Process Worker note 06/16/19: 1. Sacral area: Scar tissue with dry flaky skin and erythema from IAD, present on admission. 2. Buttocks/Perianal area: Erythema from IAD, present on admission. 3. Left Buttock w/ MASD, 4. Bilateral Inguinal areas: Erythema from IAD, present on admission. Estimated Energy Expenditure (kcals/day) 0654-3165 kcal/day (25-30 kcal/kg CBW for maintenance) Estimated Protein Required (g/day) 64-77 gm/day (1-1.2 gm/kg CBW for maintenance) Estimated Fluid Required (l/day) 1.6-2 L/day (1 ml/kcal/day for maintenance) Problem/Etiology/Signs/Symptoms Suboptimal nutritional intakes related to possible lack of appetite associated w/ cognitive limitations as evidenced by unsteady PO intake records. *ongoing Expected Outcomes/Goals - Monitor appetite and PO intakes w/ goal of pt meeting at least 75% of estimated nutritional needs, labs trending WNL, normal GI function, and skin integrity/wt maintenance Dietitian Recommendations * Recommend: Megace to stimulate appetite. * Continue: mechanical soft diet w/ Ensure Enlive TID (ONS provides 1050 kcal/day, 60 gm protein/day) * Encourage increase PO intakes Follow Up Moderate Risk: F/U in 3-5 days
--- NOTE | 2019-06-22 13:40 | NUR ---
Dietitian Recommendations * Recommend: Megace to stimulate appetite. * Continue: mechanical soft diet w/ Ensure Enlive TID (ONS provides 1050 kcal/day, 60 gm protein/day) * Encourage increase PO intakes Please see Nutrition F/U note for details. KOJO, RD
--- NOTE | 2019-06-22 14:00 | NUR ---
RN ROUNDS: FAMILY AT THE BEDSIDE. NOT IN ANY DISTRESS.
--- NOTE | 2019-06-22 16:00 | NUR ---
RN ROUNDS: NO ACUTE DISTRESS. RESTING.
[2019-06-22 16:41] VITALS: BP_SYST 127
--- NOTE | 2019-06-22 18:45 | NUR ---
CLOSING NOTES: PATIENT STILL AGITATED ONCE IN A WHILE.ON AND OFF TALKING LOUD. SAFETY MEASURES RENDERED. BED LOCKED AT LOWEST POSITION. CONTINUE TO MONITOR.
--- NOTE | 2019-06-22 19:32 | NUR ---
OPENING NOTE RECEIVED REPORT FROM KHALIDA RN, PATIENT IS RESTING IN BED, PATIENT IS AWAKE, CONFUSED AND MOVING IN BED, A/OX1, REORIENTED PATIENT TO PERSON, PLACE, TIME AND EVENT, EVEN AND UNLABORED BREATHING ON ROOM AIR, NO SIGNS OF ACUTE DISTRESS NOTED, PATIENT REFUSED IV ACCESS, MD AWARE. SAFETY AND FALL PRECAUTIONS IN PLACE, BED LOCKED AND IN LOWEST POSITION, BED ALARM ON, BED CLOSE TO NURSING STATION, CONTACT ISOLATION PRECAUTIONS IN PLACE, CALL LIGHT WITH PATIENT, WILL CONTINUE TO MONITOR.
[2019-06-22 20:00] VITALS: BP_SYST 120
[2019-06-22] MEDS: ENOXAPARIN SODIUM 40 MG/0.4 ML SYRINGE SUBCUT SCH (21:00)
[2019-06-22] MEDS: FLUPHENAZINE 10 MG PO SCH (21:00)
--- NOTE | 2019-06-22 21:50 | NUR ---
MED PASS PATIENT IS CONFUSED AND VERY RESTLESS IN BED, PATIENT REFUSED HER 2100 SCHEDULED MEDICATIONS DESPITE MULTIPLE ATTEMPTS TO EDUCATE ON USES AND POTENTIAL SIDE EFFECTS WELL MULTIPLE ATTEMPTS TO REORIENT PATIENT. SAFETY AND FALL PRECAUTIONS IN PLACE, ASPIRATION AND CONTACT ISOLATION PRECAUTIONS IN PLACE, CALL LIGHT WITH PATIENT, WILL CONTINUE TO MONITOR.
--- NOTE | 2019-06-22 22:00 | NUR ---
RN ROUNDS/INCONTINENCE CARE PATIENT VOIDED AND HAD A SMALL FORMED BM. INCONTINENCE CARE RENDERED BY THIS RN AND VICENTE SCHRADER. PATIENT BECAME VERY AGITATED AND STARTED TO KICK HER LEGS. PATIENT IS CLEAN, DRY AND REPOSITIONED. SAFETY AND FALL PRECAUTIONS IN PLACE, CONTACT ISOLATION PRECAUTIONS IN PLACE, CALL LIGHT WITH PATIENT, WILL CONTINUE TO MONITOR.
--- NOTE | 2019-06-22 22:05 | NUR ---
PAGED PAGED DOCTOR CANADA
--- NOTE | 2019-06-22 22:24 | NUR ---
PAGED PAGED DOCTOR FERGUSON
--- NOTE | 2019-06-22 22:28 | NUR ---
DR. CANADA SPOKE WITH DR. CANADA REGARDING PATIENT'S INCREASED AGITATION AND RESTLESSNESS. MD GAVE NEW ORDERS FOR RESTLESS AND AGITATION. ORDERS READ-BACK, VERIFIED AND CONFIRMED, RN TO INPUT.
[2019-06-22] MEDS ORDERED: DIPHENHYDRAMINE INJ 50 MG/ML VIAL IM ONE (22:30)
[2019-06-22] MEDS ORDERED: LORazepam 2 MG/ML VIAL IM ONE (22:30)
[2019-06-22] MEDS ORDERED: HALOPERIDOL LACTATE 5 MG/ML VIAL IM ONE (22:30)
[2019-06-23] VITALS: BP_SYST 122
--- NOTE | 2019-06-23 00:20 | NUR ---
RN ROUNDS PATIENT IS RESTING IN BED, AWAKE, NO SIGNS OF ACUTE DISTRESS, NO COMPLAINTS OF PAIN, TOLERATING ROOM AIR. SAFETY AND FALL PRECAUTIONS IN PLACE, ISOLATION PRECAUTIONS IN PLACE, CALL LIGHT WITH PATIENT, WILL CONTINUE TO MONITOR.
--- NOTE | 2019-06-23 02:14 | NUR ---
RN ROUNDS PATIENT IS AWAKE AND QUIET IN BED, NO SIGNS OF ACUTE DISTRESS, NO COMPLAINTS OF PAIN, TOLERATING ROOM AIR. SAFETY AND FALL PRECAUTIONS IN PLACE, ISOLATION PRECAUTIONS IN PLACE, CALL LIGHT WITH PATIENT, WILL CONTINUE TO MONITOR.
--- NOTE | 2019-06-23 04:20 | NUR ---
RN ROUNDS PATIENT IS RESTING IN BED, QUIET IN BED, NO SIGNS OF ACUTE DISTRESS, NO COMPLAINTS OF PAIN, TOLERATING ROOM AIR. SAFETY AND FALL PRECAUTIONS IN PLACE, ISOLATION PRECAUTIONS IN PLACE, CALL LIGHT WITH PATIENT, WILL CONTINUE TO MONITOR.
--- NOTE | 2019-06-23 06:50 | NUR ---
CLOSING NOTE PATIENT IS RESTING IN BED, PATIENT IS AWAKE, CONFUSED AND RESTLESS IN BED, EVEN AND UNLABORED BREATHING ON ROOM AIR, NO SIGNS OF ACUTE DISTRESS NOTED, PATIENT REFUSED IV ACCESS, MD AWARE, PATIENT IS SOLID AND PATIENT REFUSED MULTIPLE ATTEMPTS TO CLEAN, DRY AND PROVIDE NEW LINENS. SAFETY AND FALL PRECAUTIONS IN PLACE, BED LOCKED AND IN LOWEST POSITION, BED ALARM ON, BED CLOSE TO NURSING STATION, CONTACT ISOLATION PRECAUTIONS IN PLACE, CALL LIGHT WITH PATIENT, WILL ENDORSE CARE TO DAYSHIFT RN.
[2019-06-23] MEDS: LevALBUTEROL HCL 1.25 MG/0.5 ML *CONC.* VIAL.NEB (XOPENEX CONC.) INH SCH ×3 (07:00→23:00)
[2019-06-23] MEDS: PROLIXIN PO SCH (09:00)
[2019-06-23 09:47] VITALS: BP_SYST 122
[2019-06-23] MEDS: ATORVASTATIN 10 MG TABLET PO SCH (10:45)
[2019-06-23] MEDS: CLOPIDOGREL BISULFATE 75 MG TABLET PO SCH (10:45)
[2019-06-23] MEDS: FERROUS SULFATE 325 MG TABLET.DR PO SCH ×3 (10:45→22:33)
[2019-06-23] MEDS: LOSARTAN POTASSIUM 50 MG TABLET (COZAAR) PO SCH ×3 (10:45→22:21)
[2019-06-23] MEDS: MULTIVITS,CA,MINERALS/IRON/FA 1 TABLET PO SCH (10:45)
[2019-06-23] MEDS: NICOTINE 21 MG/24 HR PATCH.TD24 TD SCH (10:46)
[2019-06-23] MEDS: clonazePAM 0.5 MG TABLET PO SCH ×4 (10:46→22:34)
[2019-06-23] MEDS: NYSTATIN 15 GM TOPICAL POWDER TP SCH ×2 (10:56→22:20)
[2019-06-23 12:44] VITALS: BP_SYST 140
[2019-06-23] MEDS: FLUPHENAZINE 10 MG PO SCH ×3 (15:01→22:34)
--- NOTE | 2019-06-23 15:11 | NUR ---
DC Planning: late entry:late entry : Discussed with Sasha , [facility] director said she was s/w Joanna/mother yesterday, Joanna was upsetting that she did not get satisfaction update or plan about the surgery, after a long complaint Joanna hung up the phone on her. I s/w Joanna via phone , she complaint the same repeatedly. She stated she wanted to have a meeting with face to face talk with dr. Valle, dr. Iverson and dr. Gabriel, in order for her to allow to discharge the pt back to [place]. I tired to give her the IM letter but did not have a change to say so, Joanna hung up the phone on me as well. I notified DR Iverson in [facility], the md tried to call but no answers. >> I called Joanna again today but there is no answer. >> I requested Mariann/[facility] to call dr. Valle to arrange for the meeting with the pt.
[2019-06-23 16:41] VITALS: BP_SYST 131
--- NOTE | 2019-06-23 19:37 | NUR ---
OPENING NOTE RECEIVED REPORT FROM KHALIDA RN, PATIENT IS RESTING IN BED AND AWAKE, PATIENT IS CONFUSED, A/OX1, REORIENTED PATIENT TO PERSON, PLACE, TIME AND EVENT, EVEN AND UNLABORED BREATHING ON ROOM AIR, NO SIGNS OF ACUTE DISTRESS , PATIENT REFUSED IV SITE, MD AWARE. SAFETY AND FALL PRECAUTIONS IN PLACE, BED LOCKED AND IN LOWEST POSITION, BED ALARM ON, BED CLOSE TO NURSING STATION, CONTACT ISOLATION PRECAUTIONS IN PLACE, CALL LIGHT WITH PATIENT, WILL CONTINUE TO MONITOR.
[2019-06-23 20:00] VITALS: BP_SYST 121
[2019-06-23] MEDS: KCL 20 mEq in D5/0.45NS 1000mL 1,000 ML IV SCH (21:00)
[2019-06-23] MEDS: ENOXAPARIN SODIUM 40 MG/0.4 ML SYRINGE SUBCUT SCH (21:00)
--- NOTE | 2019-06-23 21:21 | NUR ---
MEDICATION PASS PATIENT IS CONFUSED AND RESTLESS, PATIENT REFUSED HER 2100 SCHEDULED MEDICATIONS DESPITE MULTIPLE ATTEMPTS OF EDUCATION FOR MEDICATION USES AND POTENTIAL SIDE EFFECTS. MULTIPLE ATTEMPTS TO REORIENT PATIENT. PATIENT IS YELLING. CHARGE NURSE BETI IS AWARE. SAFETY AND FALL PRECAUTIONS IN PLACE, CONTACT ISOLATION PRECAUTIONS IN PLACE, CALL LIGHT WITH PATIENT, WILL CONTINUE TO MONITOR. Addendum: 06/24/19 at 0233 by Tere Ceja RN TIME: 7, 06/23/19
--- NOTE | 2019-06-23 22:40 | NUR ---
RN ROUNDS PATIENT IS RESTING IN BED, AWAKE, TALKING LOUD, TIRED TO DIFFUSE THE SITUATION AND REORIENT PATIENT TO PERSON, PLACE, AND EVENT, PATIENT IS CONFUSED, NO SIGNS OF ACUTE DISTRESS, NO COMPLAINTS OF PAIN, TOLERATING ROOM AIR. SAFETY AND FALL PRECAUTIONS IN PLACE, ISOLATION PRECAUTIONS IN PLACE, CALL LIGHT WITH PATIENT, BED CLOSE TO NURSING STATION, WILL CONTINUE TO MONITOR.
--- NOTE | 2019-06-24 00:20 | NUR ---
RN ROUNDS PATIENT IS RESTING IN BED, AWAKE WRITING ON HER NOTEBOOK, NO SIGNS OF ACUTE DISTRESS, NO COMPLAINTS OF PAIN, TOLERATING ROOM AIR. SAFETY AND FALL PRECAUTIONS IN PLACE, ISOLATION PRECAUTIONS IN PLACE, CALL LIGHT WITH PATIENT, WILL CONTINUE TO MONITOR.
[2019-06-24 00:35] VITALS: BP_SYST 115
[2019-06-24] MEDS: KCL 20 mEq in D5/0.45NS 1000mL 1,000 ML IV SCH ×2 (01:00→20:00)
--- NOTE | 2019-06-24 02:22 | NUR ---
RN ROUNDS PATIENT IS RESTING IN BED, EYES CLOSED, NO SIGNS OF ACUTE DISTRESS, NO COMPLAINTS OF PAIN, TOLERATING ROOM AIR. SAFETY AND FALL PRECAUTIONS IN PLACE, ISOLATION PRECAUTIONS IN PLACE, CALL LIGHT WITH PATIENT, WILL CONTINUE TO MONITOR.
--- NOTE | 2019-06-24 04:11 | NUR ---
RN Rounds Patient is resting in bed, eyes closed, no signs of acute distress, tolerating room air, no complaints of pain. Safety and fall precautions in place, contact isolation precautions in place, call light with patient, will continue to monitor.
--- NOTE | 2019-06-24 05:32 | NUR ---
RN ROUNDS PATIENT IS RESTLESS AND AGITATED IN BED, PATIENT VOMITED CLEAR THIN EMESIS, PATIENT IS CONFUSED, REORIENTED PATIENT TO PERSON, PLACE, TIME AND EVENT. NO SIGNS OF ACUTE DISTRESS, OFFERED PATIENT PRN ZOFRAN MEDICATION, PATIENT REFUSED DESPITE EDUCATION. ASSISTED HEAD SCHOOL CUSTODIAN RACIEL TO DRY, CLEAN AND REPOSITION PATIENT. SAFETY AND FALL PRECAUTIONS IN PLACE, CONTACT ISOLATION PRECAUTIONS IN PLACE, CALL LIGHT WITH PATIENT, WILL CONTINUE TO MONITOR.
--- NOTE | 2019-06-24 06:59 | NUR ---
CLOSING NOTE PATIENT IS RESTING IN BED AND AWAKE, CONFUSED AND RESTLESS IN BED, EVEN AND UNLABORED BREATHING ON ROOM AIR, NO SIGNS OF ACUTE DISTRESS , PATIENT REFUSED IV SITE, MD AWARE. SAFETY AND FALL PRECAUTIONS IN PLACE, BED LOCKED AND IN LOWEST POSITION, BED ALARM ON, BED CLOSE TO NURSING STATION, CONTACT ISOLATION PRECAUTIONS IN PLACE, CALL LIGHT WITH PATIENT, WILL ENDORSE CARE TO DAYSHIFT RN.
[2019-06-24] MEDS: LevALBUTEROL HCL 1.25 MG/0.5 ML *CONC.* VIAL.NEB (XOPENEX CONC.) INH SCH ×3 (07:00→23:30)
[2019-06-24 08:07] VITALS: BP_SYST 111
[2019-06-24] MEDS ORDERED: DIPHENHYDRAMINE INJ 50 MG/ML VIAL IM ONE (08:45)
[2019-06-24] MEDS ORDERED: LORazepam 2 MG/ML VIAL IM ONE (08:45)
[2019-06-24] MEDS ORDERED: DIPHENHYDRAMINE INJ 50 MG/ML VIAL ONE (09:09)
[2019-06-24] MEDS ORDERED: LORazepam 2 MG/ML VIAL ONE (09:09)
[2019-06-24] MEDS: NICOTINE 21 MG/24 HR PATCH.TD24 TD SCH (09:34)
--- NOTE | 2019-06-24 10:27 | NUR ---
Handoff with LALO Jimenez. Kurt Fuentes RN
--- NOTE | 2019-06-24 10:30 | NUR ---
ASSUMPTION OF CARE: RECEIVED PT AWAKE, CONFUSED, NON-COMPLIANT, DX: IMPAIRED MOBILITY, R/T LEFT HIP DISLOCATION, CARDIAC ARRHYTHMIA, VSS, BREATH SOUNDS ARE CLEAR, BREATHING UNLABORED, IV SITE INTACT, PATENT, NO REDNESS OR SWELLING, NO C/O PAIN, REFUSING TX AT THIS TIME, WILL CONT' TO MONITOR, WILL CONT' WITH POC.
[2019-06-24 15:19] VITALS: BP_SYST 105
--- NOTE | 2019-06-24 17:00 | NUR ---
SCHOOL PSYCHOLOGY SPECIALIST: MEDICATION GIVEN FOR ANXIETY AND AGITATION, ORAL PO MEDS TOLERATED WELL, WILL CONT' WITH POC.
[2019-06-24] MEDS: PROLIXIN PO SCH (18:00)
[2019-06-24] MEDS: clonazePAM 0.5 MG TABLET PO SCH ×2 (18:11→20:42)
--- NOTE | 2019-06-24 19:30 | NUR ---
OPENING NOTE PATIENT IS RESTING IN BED AND STABLE. NO S/S OF RESPIRATORY DISTRESS NOTED. PT IS CALM AT THIS TIME. PATIENT VERBALIZES NO PAIN. PLAN OF CARE IS DISCUSSED WITH PATIENT AT THIS TIME. PATIENT CONTINUES TO REFUSE HAVING IV INSERTED DESPITE EDUCATION. FALL, SAFETY, ASPIRATION, RESPIRATORY, AND CONTACT PRECAUTIONS WILL BE IN PLACE THROUGHOUT THE SHIFT. WILL CONTINUE TO MONITOR.
[2019-06-24 20:00] VITALS: BP_SYST 106
[2019-06-24] MEDS: FERROUS SULFATE 325 MG TABLET.DR PO SCH (20:42)
[2019-06-24] MEDS: LOSARTAN POTASSIUM 50 MG TABLET (COZAAR) PO SCH (20:43)
[2019-06-24] MEDS: ENOXAPARIN SODIUM 40 MG/0.4 ML SYRINGE SUBCUT SCH (20:48)
[2019-06-24] MEDS: NYSTATIN 15 GM TOPICAL POWDER TP SCH (20:48)
--- NOTE | 2019-06-24 21:15 | NUR ---
INCONTINENCE CARE PT INCONTINENT OF URINE. INCONTINENCE CARE RENDERED. NEW LINEN PROVIDED. PT COOPERATIVE AT THIS TIME. SAFETY AND CONTACT PRECAUTIONS MAINTAINED. WILL MONITOR.
--- NOTE | 2019-06-24 23:10 | NUR ---
DR. CANADA ROUNDS DR. CANADA AT NURSES [facility].
--- NOTE | 2019-06-25 00:02 | NUR ---
EMESIS PT VOMITED MODERATE AMOUNT EMESIS. PT ASSISTED TO CLEAN FACE AND GOWN BY MARY ALICE ZHANG. PT IN NO ACUTE DISTRESS. VSS. SAFETY MAINTAINED. WILL MONITOR.
[2019-06-25 00:30] VITALS: BP_SYST 119
--- NOTE | 2019-06-25 04:30 | NUR ---
INCONTINENCE CARE PT INCONTINENT OF URINE. INCONTINENCE CARE RENDERED BY VICENTE WHEAT. PT COOPERATIVE. NO S/S OF DISTRESS. SAFETY MAINTAINED. WILL MONITOR.
--- NOTE | 2019-06-25 06:19 | NUR ---
CLOSING NOTE PATIENT HAD FEW EPISODES OF AGITATION THROUGHOUT THE SHIFT. AT THIS TIME, PATIENT IS RESTING IN BED, STABLE, WITH NO SIGNS OF RESPIRATORY DISTRESS. CALL LIGHT IS WITHIN REACH. BED IS LOCKED, ALARMED, AND AT THE LOWEST LEVEL. FALL, SAFETY, RESPIRATORY, ASPIRATION, AND CONTACT PRECAUTIONS HAVE BEEN TAKEN THROUGHOUT THE NIGHT. WILL CONTINUE TO MONITOR UNTIL SHIFT REPORT IS GIVEN AT BEDSIDE TO AM NURSE.
[2019-06-25] MEDS: LevALBUTEROL HCL 1.25 MG/0.5 ML *CONC.* VIAL.NEB (XOPENEX CONC.) INH SCH ×3 (07:00→23:05)
[2019-06-25] MEDS: PROLIXIN PO SCH (09:00)
--- NOTE | 2019-06-25 09:00 | NUR ---
PROCESS IMPROVEMENT CONSULTANT: MORNING MEDS REFUSED, PT APPEARS ANXIOUS, VERBALLY DISRUPTIVE OF HOSPITAL UNIT, UNABLE TO CALM PT DOWN, WILL PLACE CALL TO FOR ORDERS.
[2019-06-25 11:16] VITALS: BP_SYST 103
[2019-06-25] MEDS: NICOTINE 21 MG/24 HR PATCH.TD24 TD SCH (11:23)
[2019-06-25] MEDS: CLOPIDOGREL BISULFATE 75 MG TABLET PO SCH ×2 (11:24→11:34)
[2019-06-25] MEDS: FERROUS SULFATE 325 MG TABLET.DR PO SCH ×2 (11:24→11:34)
[2019-06-25] MEDS: ATORVASTATIN 10 MG TABLET PO SCH ×2 (11:24→11:34)
[2019-06-25] MEDS: clonazePAM 0.5 MG TABLET PO SCH ×2 (11:24→20:31)
[2019-06-25] MEDS: MULTIVITS,CA,MINERALS/IRON/FA 1 TABLET PO SCH ×2 (11:24→11:34)
[2019-06-25] MEDS: FLUPHENAZINE 10 MG PO SCH (11:25)
[2019-06-25] MEDS: LOSARTAN POTASSIUM 50 MG TABLET (COZAAR) PO SCH ×2 (11:33→21:00)
[2019-06-25] MEDS ORDERED: LORazepam 2 MG/ML VIAL IM ONE ×2 (14:15→22:30)
[2019-06-25] MEDS ORDERED: chlorproMAZINE HCL 50 MG/ 2 ML AMP IM ONE (14:15)
[2019-06-25] MEDS ORDERED: DIPHENHYDRAMINE INJ 50 MG/ML VIAL IM ONE ×2 (14:15→22:30)
[2019-06-25] MEDS ORDERED: HALOPERIDOL LACTATE 5 MG/ML VIAL IM ONE ×2 (15:00→22:30)
--- NOTE | 2019-06-25 15:00 | NUR ---
DC Planning: CM attempted to call Joanna/mother to her home phone numbers but there was no answer. CM notified Mirna, director of the continued discharge barriers. Mirna directed the case to [facility] Lead staff for assistance.
[2019-06-25 15:32] VITALS: BP_SYST 96
--- NOTE | 2019-06-25 16:24 | NUR ---
Social Service Note: [facility] has reached out to Dr. Iverson regarding a meeting with pt's family; Dr. Iverson states that he will be available at 1:00pm on 06/26/19. NIXON has reached out to administration to assist with contacting Dr. Valle to see if he is available. NIXON spoke with Dr. Valle office staff who stated he would be in the office tomorrow, 06/26/19. [facility] has left a message for pt's mother at: [phone] and [phone] to alert her of the scheduled family meeting tomorrow, 06/26/19 at 1:00pm. [facility] has updated CM director.
--- NOTE | 2019-06-25 19:45 | NUR ---
ROUNDS PATIENT RESTING COMFORTABLY IN BED AT THIS TIME, NOT IN DISTRESS, VITALS TABLE. ASSESSMENT DONE AND DOCUMENTED. SEE FLOWSHEET. SAFETY AND FALL MEASURES IN PLACED. BED IN LOW AND LOCKED POSITION. BED ALARM ON. WILL CONTINUE TO MONITOR.
[2019-06-25] MEDS: ENOXAPARIN SODIUM 40 MG/0.4 ML SYRINGE SUBCUT SCH (21:00)
[2019-06-25] MEDS: NYSTATIN 15 GM TOPICAL POWDER TP SCH (21:00)
--- NOTE | 2019-06-25 21:15 | NUR ---
MEDICATION PATIENT TOOK MEDICATIONS WITH APPLE SAUCE SCHEDULED, WILL CONTINUE TO MONITOR.
--- NOTE | 2019-06-26 00:15 | NUR ---
PATIENT RESTING: Patient resting quietly. No acute distress noted. Vital signs within normal range.
[2019-06-26 02:06] VITALS: BP_SYST 130
--- NOTE | 2019-06-26 02:16 | NUR ---
ROUNDS PATIENT ASLEEP, RESPIRATIONS EVEN AND UNLABORED, WILL CONTINUE TO MONITOR.
--- NOTE | 2019-06-26 04:12 | NUR ---
PATIENT RESTING: Patient resting quietly. No acute distress noted. Vital signs within normal range.
--- NOTE | 2019-06-26 06:57 | NUR ---
CLOSING NOTES PATIENT ASLEEP AT THIS TIME, NO SIGNS OF ANY PAIN AND DISCOMFORT AT THIS TIME. ALL NEEDS ATTENDED TO. WILL ENDORSE TO INCOMING SHIFT NURSE.
[2019-06-26] MEDS: LevALBUTEROL HCL 1.25 MG/0.5 ML *CONC.* VIAL.NEB (XOPENEX CONC.) INH SCH ×2 (07:37→15:20)
--- NOTE | 2019-06-26 08:00 | NUR ---
Initial notes- In bed, awake, yelling and screaming. refused to take v/s at this time.
[2019-06-26] MEDS: NYSTATIN 15 GM TOPICAL POWDER TP SCH (09:00)
--- NOTE | 2019-06-26 09:00 | NUR ---
has incontinence of urine, changed patient, pt agitated while changing her.
[2019-06-26] MEDS: clonazePAM 0.5 MG TABLET PO SCH ×2 (09:41→14:37)
[2019-06-26] MEDS: CLOPIDOGREL BISULFATE 75 MG TABLET PO SCH (09:42)
[2019-06-26] MEDS: MULTIVITS,CA,MINERALS/IRON/FA 1 TABLET PO SCH (09:42)
[2019-06-26] MEDS: ATORVASTATIN 10 MG TABLET PO SCH (09:42)
[2019-06-26] MEDS: FERROUS SULFATE 325 MG TABLET.DR PO SCH (09:42)
[2019-06-26] MEDS: NICOTINE 21 MG/24 HR PATCH.TD24 TD SCH (09:43)
[2019-06-26] MEDS: PROLIXIN PO SCH (09:46)
--- NOTE | 2019-06-26 10:00 | NUR ---
Able to give meds with pudding and patient drink orange juice.
--- NOTE | 2019-06-26 10:15 | NUR ---
Discharge Planning: DANIEL called Tabby at [facility] (f [phone] p [phone]) confirmed room 117B, [facility] place transport on Will Call with [facility] ([phone]) Will Call. Addendum: 06/26/19 at 1459 by Tiara King [facility] (f [phone] p [phone]) Rm 117B, [facility] ([phone]) 6:30pm P/U. DCP made nurse aware and patient packet taken to nurse station.
[2019-06-26 10:20] VITALS: BP_SYST 130
--- NOTE | 2019-06-26 10:22 | NUR ---
Social Service Note: LICENSED HOME INSPECTOR placed call to pt's mother at [phone] and [phone] and left a message on both phone numbers to try and confirm the meeting scheduled for 1:00pm today. LICENSED HOME INSPECTOR will continue to try and reach pt's mother to confirm family meeting and DC plans.
--- NOTE | 2019-06-26 10:30 | NUR ---
Social Service Note: FUR IRONER received call from pt's mother, Joanna. Joanna states that she needs 2-3 days advanced notice to come in for a meeting, as she needs to arrange transportation. FUR IRONER did alert Joanna of her Medicare Appeal rights and offered to give pt's mother the number to contact Magui, pts mother states that she did not want to appeal at this time and did not want the phone number. Joanna states that she spoke to the [facility] and had told her that she wanted a family meeting with 5 doctors. Joanna states that she wants to meet in person with the 3 ortho doctors, the psychiatrist, and attending doctor. FUR IRONER alerted Joanna that FUR IRONER would speak with SHAHRAM to see what the status was of this meeting. Pts mother stated that she has not spoken to an ortho doctor on this admission and wants an update from the ortho doctor who attempted surgery on this admission. FUR IRONER did alert pts mother that a meeting was scheduled for today at 1:00pm with the attending doctor. Pts mother states that she will try to find transportation to be here. Pts mother states that she will call FUR IRONER back. FUR IRONER placed call to DON for update on scheduling meeting with 5 doctors; FUR IRONER left a message for DON to return call.
--- NOTE | 2019-06-26 10:35 | NUR ---
SEE Clerk General Office notes for f/u info.
--- NOTE | 2019-06-26 11:30 | NUR ---
Social Service Note: Pts mother called BIAS BINDING FOLDER back again and states that she is still not sure if she can come at 1:00pm to meet with Dr. Iverson. Pts mother stated that she wants to speak with the ortho doctors and psychiatrist. BIAS BINDING FOLDER alerted pts mother that the pt was seen by the psychiatrist this morning. During conversation pts mother states that she will find a ride to be at the hospital for the 1:00pm meeting. BIAS BINDING FOLDER placed call to Dr. Nam and Dr. Valle office to see if they were available for the meeting. BIAS BINDING FOLDER spoke with both physicians who stated they were unavailable. Dr. Valle stated that he would be at [place] between 3:00pm and 5:00pm. Dr. Valle provided BIAS BINDING FOLDER with the 3 options he sees for the pt.
[2019-06-26 12:00] VITALS: BP_SYST 101
[2019-06-26] MEDS: LOSARTAN POTASSIUM 50 MG TABLET (COZAAR) PO SCH (12:00)
--- NOTE | 2019-06-26 14:30 | NUR ---
Social Service Note: Family meeting was conducted with pts mother and pts sisters Rivera myrick. Attending physician was present with CM director, BUILDING AND GROUNDS SUPERVISOR, and MST nurse; patient experience team also present. After meeting pts mother is agreeable to pt being discharged back to [facility]. Pts mother has asked that pt be discharged after dinner time. Pts mothers concerns have been forwarded to patient experience team who came to meet with pts mother. BUILDING AND GROUNDS SUPERVISOR has also alerted Medical Staff Department of pts mothers concerns about the lack of communication from the physicians. NIXON has left a note for Dr. Valle with the contact information for pts mother at home; pts mother would like a phone call from Dr. Valle prior to pt being discharged back to the SNF. BUILDING AND GROUNDS SUPERVISOR will remain available for support and will follow up as needed.
--- NOTE | 2019-06-26 15:04 | NUR ---
Resting at this time. No distress noted.
[2019-06-26 16:00] VITALS: BP_SYST 118
--- NOTE | 2019-06-26 17:00 | NUR ---
Report given to [facility] staff. made them aware that pt is very agitated at this time Aviva grigsby okayed to give patient haldol at this time.
--- NOTE | 2019-06-26 17:30 | NUR ---
Yazan by Dr. valle, informed Dr. Valle to call ginny (patient's mother). Phone number provided to
[2019-06-26] MEDS ORDERED: HALOPERIDOL LACTATE 5 MG/ML VIAL ONE (17:51)
[2019-06-26] MEDS ORDERED: DIPHENHYDRAMINE INJ 50 MG/ML VIAL ONE (17:52)
--- NOTE | 2019-06-26 19:19 | NUR ---
dis[facility]. Pt is awake and agitated. packets and medication (prolixin) sent to ambulance staff. No distress noted. family aware of discharge. pt is agitated upon discharge. no ivl
== END 2019-06-26 19:19 | DRG 560 ==
LOC: SED 13:31 → STU 15:14 → SMU 06-08 14:30
PROVIDERS: ADMIT Family Medicine; ATTEND Family Medicine
PROC: 0SSBXZZ Reposition Left Hip Joint, External Approach (ICD-10-PCS; principal; 2019-06-06 16:30)
DX: T84.021A Dislocation of internal left hip prosthesis, initial encounter (principal); S73.005A Unspecified dislocation of left hip, initial encounter; N39.0 Urinary tract infection, site not specified; J44.9 Chronic obstructive pulmonary disease, unspecified; I10 Essential (primary) hypertension; F31.9 Bipolar disorder, unspecified; E78.5 Hyperlipidemia, unspecified; K21.9 Gastro-esophageal reflux disease without esophagitis; F25.9 Schizoaffective disorder, unspecified; X58.XXXA Exposure to other specified factors, initial encounter; F17.200 Nicotine dependence, unspecified, uncomplicated; Z88.6 Allergy status to analgesic agent; Z88.0 Allergy status to penicillin; Z88.8 Allergy status to other drugs, medicaments and biological substances; Z79.899 Other long term (current) drug therapy; Y93.89 Activity, other specified; Y92.89 Other specified places as the place of occurrence of the external cause; Y99.8 Other external cause status
CPT/HCPCS: 36415; 71045; 72170-TC; 76000; 80048; 80053; 80170-TC; 80178-TC; 81000-TC; 85025; 85610-TC; 85730-TC; 87081; 87086; 87186-TC; 93005; 94640; 94760; 96374; 96375; 99291; C9399; G0378; J0330; J1100; J1200; J1580; J1630; J1650; J2060; J2405; J3490; J7030; J7612